=== PATIENT | male | born 1960 | race Caucasian/White ===

== ENCOUNTER 2020-05-24 08:03 | Outpatient (REF) | payer OTHER, SELFPAY ==
--- NOTE | ~2020-05-24 | XR_ITS ---
EXAMINATION: XR LUMBOSACRAL SPINE CLINICAL INFORMATION: Low back pain COMPARISON: None TECHNIQUE: Three views of the lumbosacral spine. FINDINGS: Bone alignment is normal. No fracture or dislocation is seen. Disc spaces are normal. There is lower lumbar spine facet arthritis. The left iliac crest is higher than the right. There may be degenerative changes of the right inferior sacroiliac joint. There is evidence of severe atherosclerotic disease. XR/XR lumbar spine 2-3V IMPRESSION: Lower lumbar spine facet arthritis. The left iliac crest is higher than the right. Severe atherosclerotic disease.
== END 2020-05-24 08:04 | disposition home or self-care (01) ==
LOC: HO.XRAY 08:03
PROVIDERS: PCP Internal Medicine; Visit Provider Physician Assistant
DX: M54.5 Low back pain (principal)
CPT/HCPCS: 72100

== ENCOUNTER → 2020-07-15 09:33 | Outpatient (BNVA) | payer OTHER, SELFPAY | PROVIDERS: Visit Provider Internal Medicine Cardiovascular Disease | DX: I25.10 Atherosclerotic heart disease of native coronary artery without angina pectoris (principal); I10 Essential (primary) hypertension; Z79.899 Other long term (current) drug therapy | CPT/HCPCS: 93005 ==

== ENCOUNTER 2020-08-21 10:26 | Outpatient (REF) | payer MEDICARE, OTHER, SELFPAY ==
[2020-08-21 11:21] LABS: Glucose Urine UA NEG (NEG); Leukocyte Esterase Urine NEG (NEG); Nitrite Urine NEG (NEG); Specific Gravity - Urine 1.015 (1.005-1.025); Urine Blood 1+ (NEG); Urine Ketones NEG (NEG); Urine Protein NEG (NEG-TRACE)
[2020-08-21 11:22] LABS: MANUAL DIFF FLAG NO
[2020-08-21 11:28] LABS: Appearance Urine CLEAR; Color Urine YELLOW
[2020-08-21 11:39] LABS: Basophils Absolute Auto 0.1 X10*3/uL (0.0-0.2); Basophils Percent Auto 1.3 % (0-2); Eosinophils Absolute Auto 0.2 X10*3/uL (0.0-0.4); Hematocrit 40.5 % (42-52); Hemoglobin 14.4 g/dl (14.0-18.0); Imm Gran Abs Auto 0.03 X10*3/uL (0.00-0.03); Imm Gran Pct Auto 0.5 % (0.0-0.4); Lymphocytes Absolute Auto 1.7 X10*3/uL (1.2-4.9); Lymphocytes Percent Auto 30.5 % (20-40); Mean Corpuscular HGB Conc 35.6 g/dl (31.0-36.0); Mean Corpuscular Hemoglobin 32.9 pg (27.0-33.0); Mean Corpuscular Volume 92.5 fL (80-98); Mean Platelet Volume 8.4 fL (9.4-12.4); Monocytes Absolute Auto 0.6 X10*3/uL (0.1-1.2); Monocytes Percent Auto 10.8 % (2-11); Neutrophils Absolute Auto 2.9 X10*3/uL (2.0-8.3); Neutrophils Percent Auto 52.9 % (45-73); Platelet Count 291 X10*3/uL (160-400); Red Blood Count 4.38 X10*6/uL (4.60-5.80); Red Cell Distribution Width 11.5 % (11.0-16.0); White Blood Count 5.6 X10*3/uL (4.8-10.8)
[2020-08-21 11:40] LABS: WBC Urine 0 /HPF (0-4)
[2020-08-21 11:41] LABS: Alanine Aminotransferase 17 U/L (0-40); Albumin Level 4.5 g/dL (3.5-5.0); Alkaline Phosphatase 58 U/L (39-117); Anion Gap 13 (12-20); Aspartate Amino Transferase 24 U/L (5-37); Bilirubin Total 0.6 mg/dL (0.0-1.0); Blood Urea Nitrogen 9 mg/dL (9-16); Calcium 9.6 mg/dL (8.4-10.2); Carbon Dioxide 26 mmol/L (22-29); Chloride 97 mmol/L (96-108); Cholesterol 131 mg/dL; Estimated Glomerular Filt Rate > 60; Glucose Fasting 128 mg/dL (60-99); HDL Cholesterol 71 mg/dL; LDL Cholesterol Calculated 52 mg/dl; Potassium 4.8 mmol/L (3.3-5.1); Sodium 131 mmol/L (135-145); Total Protein 6.9 g/dL (6.5-8.0); Triglycerides 43 mg/dL
[2020-08-21 12:04] LABS: TSH reflex Free T4 0.32 uIU/mL (0.32-4.0)
[2020-08-25 21:46] LABS: Testosterone, Total 780 ng/dL (250-1100)
== END 2020-08-21 10:27 | disposition home or self-care (01) ==
LOC: HO.LAB 10:26
PROVIDERS: PCP Internal Medicine; Visit Provider Internal Medicine
DX: I10 Essential (primary) hypertension (principal); F17.200 Nicotine dependence, unspecified, uncomplicated; I25.10 Atherosclerotic heart disease of native coronary artery without angina pectoris; R53.83 Other fatigue; E78.00 Pure hypercholesterolemia, unspecified
CPT/HCPCS: 36415; 80053; 80061; 81001; 84403; 84443; 85025

== ENCOUNTER → 2021-01-14 09:21 | Outpatient (BNVA) | payer MEDICARE, BC, SELFPAY | PROVIDERS: PCP Internal Medicine; Referring Provider Internal Medicine; Visit Provider Internal Medicine Cardiovascular Disease | DX: I25.10 Atherosclerotic heart disease of native coronary artery without angina pectoris (principal); I10 Essential (primary) hypertension | CPT/HCPCS: 99212 ==

== ENCOUNTER 2021-04-26 11:18 | Outpatient (REF) | payer MEDICARE, SELFPAY ==
[2021-04-26 13:22] LABS: Appearance Urine CLEAR; Color Urine YELLOW; Glucose Urine UA NEG (NEG); Leukocyte Esterase Urine NEG (NEG); Nitrite Urine NEG (NEG); UACC Culture Trigger NO; Urine Blood TRACE (NEG); Urine Ketones NEG (NEG); Urine Protein NEG (NEG-TRACE)
[2021-04-26 13:43] LABS: Estimated Average Glucose 108 mg/dL; Hemoglobin A1c % 5.4 %
[2021-04-26 13:47] LABS: Alanine Aminotransferase 31 U/L (0-40); Albumin Level 4.5 g/dL (3.5-5.0); Alkaline Phosphatase 59 U/L (39-117); Anion Gap 13 (12-20); Aspartate Amino Transferase 30 U/L (5-37); Blood Urea Nitrogen 11 mg/dL (9-16); Calcium 9.6 mg/dL (8.4-10.2); Carbon Dioxide 26 mmol/L (22-29); Chloride 94 mmol/L (96-108); Cholesterol 144 mg/dL; Estimated Glomerular Filt Rate > 60; Glucose Fasting 120 mg/dL (60-99); HDL Cholesterol 78 mg/dL; LDL Cholesterol Calculated 58 mg/dl; Sodium 128 mmol/L (135-145); Total Protein 6.9 g/dL (6.5-8.0); Triglycerides 44 mg/dL
[2021-04-26 13:58] LABS: RBC Urine 0-2 /HPF (0); WBC Urine 0 /HPF (0-4)
[2021-04-26 14:11] LABS: TSH reflex Free T4 0.52 uIU/mL (0.32-4.0); Vitamin D 25-OH Total 29.7 ng/mL (>30)
[2021-04-26 14:27] LABS: Prostate Specific Antigen 0.36 ng/mL (<0.05-4.0)
[2021-04-28 08:45] LABS: Folate 15.2 ng/mL (> or = 4.0); Vitamin B12 267 pg/mL (200-900)
== END 2021-04-26 11:19 | disposition home or self-care (01) ==
LOC: HO.HMGCLDS 11:18
PROVIDERS: PCP Internal Medicine; Visit Provider Internal Medicine
DX: E55.9 Vitamin D deficiency, unspecified (principal); N40.0 Benign prostatic hyperplasia without lower urinary tract symptoms; E78.00 Pure hypercholesterolemia, unspecified; E53.8 Deficiency of other specified B group vitamins; R73.01 Impaired fasting glucose; I10 Essential (primary) hypertension; R53.83 Other fatigue
CPT/HCPCS: 36415; 80053; 80061; 81001; 82306; 82607; 82746; 83036; 84153; 84443

== ENCOUNTER 2021-06-12 08:39 | Outpatient (REF) | payer MEDICARE, SELFPAY ==
--- NOTE | ~2021-06-12 | CT_ITS ---
EXAMINATION: CT CHEST SCREENING CLINICAL INFORMATION: Current smoker. 45 pack year history. COMPARISON: Previous chest CT most recent December 2019 TECHNIQUE: Multidetector volumetric CT imaging of the chest is performed without contrast using low dose technique. Additional 2D coronal and sagittal reformatted images and axial 3D maximum intensity projection (MIP) images are generated on the CT workstation. This CT examination was performed using dose optimization techniques as appropriate, variously including the following: *Automated exposure control *Adjustment of mA and/or kV according to patient size (this includes techniques or standardized protocols for targeted exams where dose is matched to indication/reason for exam; i.e. extremities or head) *Use of iterative reconstruction technique DLP: 49 mGy-cm FINDINGS: LUNGS: There is evidence of mild emphysema. The lungs are clear with no evidence of inflammation or nodules. No endobronchial or endotracheal lesion is seen. MEDIASTINUM: There is severe coronary artery calcification. The mediastinum is otherwise normal. PLEURA: There is no pleural effusion. No pleural mass or thickening. AXILLA: No lymphadenopathy. UPPER ABDOMEN: Unremarkable OSSEOUS STRUCTURES: Unremarkable. CT/CT lung screening IMPRESSION: Mild emphysema. No pulmonary nodules. Atherosclerotic disease and severe coronary artery calcification. ASSESSMENT: Lung-RADS category 1S S for severe coronary artery calcification. RECOMMENDATION: Annual low-dose chest CT follow-up recommended.
== END 2021-06-12 08:40 | disposition home or self-care (01) ==
LOC: HO.CT 08:39
PROVIDERS: Visit Provider Physician Assistant Medical
DX: Z12.2 Encounter for screening for malignant neoplasm of respiratory organs (principal); F17.210 Nicotine dependence, cigarettes, uncomplicated
CPT/HCPCS: 71271

== ENCOUNTER → 2021-07-31 14:50 | Outpatient (BNVA) | payer MEDICARE, SELFPAY | PROVIDERS: PCP Internal Medicine; Referring Provider Internal Medicine; Visit Provider Nurse Practitioner Family | DX: I25.10 Atherosclerotic heart disease of native coronary artery without angina pectoris (principal); I10 Essential (primary) hypertension; E78.00 Pure hypercholesterolemia, unspecified; F17.210 Nicotine dependence, cigarettes, uncomplicated; I25.2 Old myocardial infarction; Z86.74 Personal history of sudden cardiac arrest; Z95.5 Presence of coronary angioplasty implant and graft | CPT/HCPCS: 93005; 99212 ==

== ENCOUNTER → 2021-09-19 09:40 | Outpatient (BNVA) | payer MEDICARE, SELFPAY | PROVIDERS: PCP Internal Medicine; Visit Provider Physician Assistant | DX: M77.12 Lateral epicondylitis, left elbow (principal) | CPT/HCPCS: 20551; 99202; J1020 ==

== ENCOUNTER → 2022-01-13 09:22 | Outpatient (BNVA) | payer MEDICARE, SELFPAY | PROVIDERS: PCP Internal Medicine; Referring Provider Internal Medicine; Visit Provider Internal Medicine Cardiovascular Disease | DX: R07.9 Chest pain, unspecified (principal); I25.10 Atherosclerotic heart disease of native coronary artery without angina pectoris; I10 Essential (primary) hypertension; F17.210 Nicotine dependence, cigarettes, uncomplicated; Z79.899 Other long term (current) drug therapy | CPT/HCPCS: 93005; 99212 ==

== ENCOUNTER → 2022-02-06 13:57 | Outpatient (REF) | payer MEDICARE, SELFPAY ==
--- NOTE | 2022-02-06 14:00 | CA_ITS ---
Transthoracic Echocardiogram Patient (Last, First, Middle): Lc Payan R Gender: Male Date of : 1960 Age: 61 Procedure Date: 02/06/2022 Procedure Type: Transthoracic Echocardiogram Location: OP Height: 165.1 cm Weight: 68.04 kg BSA: 1.75 m2 Heart Rate: 69 bpm BP: 122 / 80 mmHg Profile Shaper Operator: TO Referring MD: Todd Negro MD Symptoms: R07.9 - Chest pain, unspecified Study Quality: Adequate ECG Rhythm: Sinus Conclusions: - Normal left ventricular size, thickness, and systolic function. The visually estimated ejection fraction is between 55-60%. - The apex, apical septum, and mid anteroseptal segments are akinetic. - Mildly increased right ventricular cavity size. There is normal right ventricular systolic function. Findings Left Ventricle Normal left ventricular size, thickness, and systolic function. The visually estimated ejection fraction is between 55-60%. There is evidence of regional wall motion abnormalities. Abnormal diastolic function is noted. Spectral Doppler is indicative of a pseudonormal filling pattern. E/E prime ratio is between 8 and 15 consistent with indeterminate filling pressures. Wall Motion Rest Echo Findings The apex, apical septum, and mid anteroseptal segments are akinetic. Right Ventricle Mildly increased right ventricular cavity size. There is normal right ventricular systolic function. Atria Both atria are normal in size. There is no evidence of interatrial shunt by color Doppler. Aortic Valve Normal aortic valve structure and function. There is no aortic valve stenosis. There is no aortic valve regurgitation. Mitral Valve The mitral valve appears normal. There is no mitral valve regurgitation. There is no mitral valve stenosis. Pulmonic Valve The pulmonic valve is likely normal. Tricuspid Valve Normal tricuspid valve structure. There is trace tricuspid valve regurgitation. Normal right atrial pressure. There is no evidence of pulmonary hypertension. Great Vessels The visualized portions of the pulmonary artery and branches are normal. Venous The inferior vena cava is normal in size and collapses greater than 50% with inspiration. Pericardium/Pleural There is no evidence of pericardial effusion. Prior Study Comparison No significant change compared to prior study dated: 11/21/2019. Measurements 2D Linear Measurements IVSd: 0.83 0.6-0.9/0.6-1.0 cm LVIDd: 5.22 3.9-5.3/4.2-5.9 cm LVIDd Index: 2.98 2.4-3.2/2.2-3.1 cm/m2 LVIDs: 3.19 2.0-3.6 cm LVPWd: 0.86 0.7-1.1 cm LA Diam: 2.70 2.7-3.8/3.0-4.0 cm LAIDs Index: 1.54 1.5-2.3 cm/m2 LV Mass: 194.62 67-162/88-224 g LV Mass Index: 111.21 43-95/49-115 g/m2 LVOT Diam: 2.10 3.0+(-)1.3 cm 2D Systolic Function EF 4C: 56.60 >55% EF 2C: 61.70 >55% EF BiP: 59.00 >55% Mitral Valve MV Pk E: 0.66 MV PK A: 0.68 MV Decel Time: 248.00 E/A: 1.00 E'Lateral: 6.42 E'Medial: 6.64 E/E' Med: 9.90 E/E' Lat: 10.30 PHT: 73.00 MVA PHT: 3.01 Decel Phillips: 2.66 Aortic Valve AoV Pk Singh: 1.52 AoV Mn Singh: 1.09 AoV VTI: 0.35 AoV Pk Grad: 9.00 Aov Mn Grad: 5.00 LUCERO Cont.VTI: 2.70 LVOT LVOT Pk Singh: 1.26 LVOT Mn Singh: 0.73 LVOT VTI: 0.27 LVOT Pk Grad: 6.00 LVOT Mn Grad: 3.00 LVOT Diam: 2.10 LVOT Area: 3.46 Diastolic Function MV Pk E: 0.66 MV Pk A: 0.68 E/A: 1.00 E'Medial: 6.64 E/E' Med: 9.90 E' Laterial: 6.42 E/E' Lat: 10.30 Right Ventricle TAPSE (mm): 28.10 TVS' Singh: 11.70 Tricuspid Valve TR Pk Singh: 2.00 TR Pk Grad: 16.00 RA Press: 3.00 RVSP: 19.00 Great Vessels Aorta Ao Asc: 3.20 2.1-3.4 cm Updated in Other Vendor System with Status of Final Caden Ramirez MD electronically signed on 02/08/2022 3:06:05 PM with status of Final
== END ==
LOC: HO.CARD 13:57
PROVIDERS: Visit Provider Internal Medicine Cardiovascular Disease
DX: R07.9 Chest pain, unspecified (principal); I10 Essential (primary) hypertension
CPT/HCPCS: 93306

== ENCOUNTER → 2022-02-12 07:58 | Outpatient (REF) | payer MEDICARE, SELFPAY ==
--- NOTE | ~2022-02-12 | NM_ITS ---
Exercise Myocardial perfusion study Indication: Chest pain with prior coronary artery disease to evaluate for myocardial ischemia Technique: The patient was brought in for an exercise perfusion study on 02/12/2022. Patient performed exercise as per Willard protocol and was injected 25 mCi of sestamibi was given intravenously one target HR was achieved. Images were obtained using the SPECT gamma camera interlaced with the gating device. Images were obtained in supine position. Resting perfusion study was performed on 02/13/2022. Patient was administered 25 mCi of sestamibi intravenously at rest. Images were then obtained in supine position. Images obtained with and without CT attenuation. Total DLP 74 mGy-cm. Images were processed with the software and compared side to side in short axis, horizontal long axis and vertical long axis views. Findings: The stress perfusion study showed non attenuated images show absent uptake in the apex of the LV myocardium along with mildly to moderately uptake in the septum of the LV myocardium. Remainder of the LV myocardium is normally perfused. Attenuation corrected images show no significant changes.. The gated study shows normal LV systolic function with calculated LVEF of 59%. LV cavity is mildly dilated in size. The gated study shows absent wall thickening and contraction of apical segments. There is no transient ischemic dilation. Resting study shows no change in perfusion pattern compared to stress perfusion study. Gating at rest reveals apical wall motion abnormality with ejection fraction at 55%. 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 NM/NM sonia perf SPECT rest & str Impression: 1. 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 Gated LVEF is 59% 3. Transient ischemic dilatation not present Stress EKG is negative for ischemia
--- NOTE | 2022-02-12 08:00 | CA_ITS ---
Acquisition Time: 2022-02-12 08:12:18 Total Exercise Time: 00:08:45 Test Indications: Fatigue Medications: AMLODIPINE ASA ATORVASTATIN HCTZ LISINOPRIL TRAZADONE RANOLAZINE Protocol: DOMINICK Max HR: 137 BPM 86% of Pred: 159 BPM Max BP: 164/070 mmHG Max Work Load: 10.1 METS Exercise stress test with exercise 8 min 45 sec of Dominick protocol, achieving 86% MPHR 10.1 METs, with 6/10 anterior chest burning, mild sob and leg fatigue with need to stop, with isolated PAC, with normotensive response to exercise, without EKG changes meeting criteria for ischemia.with ST/ T wave abnormality V1-V3 throughtout test, consistent with RBBB. In recovery his chest burning quickly resolved. Nuclear images pending. Test reviewed with Dr Negro Referred By: oTdd Negro Overread By: FERNANDO ROMEO
== END ==
LOC: HO.CARD 07:58
PROVIDERS: Visit Provider Internal Medicine Cardiovascular Disease
DX: R07.9 Chest pain, unspecified (principal); I25.10 Atherosclerotic heart disease of native coronary artery without angina pectoris
CPT/HCPCS: 78452; 93017; A9500

== ENCOUNTER → 2022-05-27 13:32 | Outpatient (BNVA) | payer MEDICARE, SELFPAY | PROVIDERS: PCP Internal Medicine; Referring Provider Internal Medicine; Visit Provider Nurse Practitioner Family | DX: I25.10 Atherosclerotic heart disease of native coronary artery without angina pectoris (principal); I10 Essential (primary) hypertension; E78.00 Pure hypercholesterolemia, unspecified; F17.210 Nicotine dependence, cigarettes, uncomplicated; Z95.5 Presence of coronary angioplasty implant and graft | CPT/HCPCS: 99212 ==

== ENCOUNTER 2022-07-08 09:33 | Outpatient (REF) | payer MEDICARE, SELFPAY ==
--- NOTE | ~2022-07-08 | CT_ITS ---
EXAMINATION: LUNG CANCER SCREENING CT CHEST WITHOUT CONTRAST CLINICAL INFORMATION: Current smoker with 45 pack year history COMPARISON: 06/12/2021 TECHNIQUE: Multidetector volumetric CT imaging of the chest was obtained noncontrast using low dose screening CT technique. Axial thin section 0.625 mm reformations in soft tissue and lung windows were obtained. Sagittal and coronal reformations were obtained. Axial MIP images were also created and reviewed. This CT examination was performed using dose optimization techniques as appropriate, variously including the following: *Automated exposure control *Adjustment of mA and/or kV according to patient size (this includes techniques or standardized protocols for targeted exams where dose is matched to indication/reason for exam; i.e. extremities or head) *Use of iterative reconstruction technique TOTAL EXAM DLP: 54 mGy-cm. FINDINGS: PULMONARY NODULES: No suspicious pulmonary nodules. LUNGS / PLEURA: Mild emphysema. Diffuse mild bronchial wall thickening without bronchiectasis. No pleural effusion or pneumothorax. MEDIASTINUM / SHY: Heart normal in size without pericardial effusion. Great vessels normal caliber. No lymphadenopathy. Coronary calcifications present. Imaged thyroid gland unremarkable. CHEST WALL / AXILLA: Unremarkable. UPPER ABDOMEN: Included portions grossly unremarkable allowing for limitations in technique. OSSEOUS STRUCTURES: No acute or suspicious osseous abnormalities. CT/CT lung screening IMPRESSION: * No evidence of pulmonary malignancy. * Mild emphysema and chronic airways disease. ASSESSMENT: Lung RADS category: 1. Negative. No nodules or definitely benign nodules. Continue annual screening with low-dose CT in 12 months. Probability of malignancy less than 1%. INCIDENTAL FINDINGS (S CATEGORY): None. RECOMMENDATION: Follow up low dose CT chest in 1 year.
== END 2022-07-08 09:34 | disposition home or self-care (01) ==
LOC: HO.CT 09:33
PROVIDERS: Visit Provider Physician Assistant Medical
DX: Z12.2 Encounter for screening for malignant neoplasm of respiratory organs (principal); F17.210 Nicotine dependence, cigarettes, uncomplicated
CPT/HCPCS: 71271

== ENCOUNTER 2022-10-09 08:27 | Outpatient (REF) | payer MEDICARE, SELFPAY ==
[2022-10-09 11:20] LABS: MANUAL DIFF FLAG NO
[2022-10-09 11:35] LABS: Basophils Absolute Auto 0.1 X10*3/uL (0.0-0.2); Basophils Percent Auto 0.7 % (0-2); Eosinophils Absolute Auto 0.1 X10*3/uL (0.0-0.4); Eosinophils Percent Auto 0.7 % (0-4); Hematocrit 39.8 % (42.0-52.0); Hemoglobin 14.6 g/dl (14.0-18.0); Imm Gran Abs Auto 0.03 X10*3/uL (0.00-0.03); Imm Gran Pct Auto 0.4 % (0.0-0.4); Lymphocytes Absolute Auto 1.3 X10*3/uL (1.2-4.9); Lymphocytes Percent Auto 18.3 % (20-40); Mean Corpuscular HGB Conc 36.7 g/dl (31.0-36.0); Mean Corpuscular Hemoglobin 33.9 pg (27.0-33.0); Mean Corpuscular Volume 92.3 fL (80.0-98.0); Mean Platelet Volume 8.7 fL (9.4-12.4); Monocytes Absolute Auto 0.6 X10*3/uL (0.1-1.2); Monocytes Percent Auto 9.2 % (2-11); Neutrophils Absolute Auto 4.8 x10*3/uL (2.0-8.3); Neutrophils Percent Auto 70.7 % (45-73); Platelet Count 254 X10*3/uL (160-400); Red Blood Count 4.31 X10*6/uL (4.60-5.80); Red Cell Distribution Width 11.9 % (11.0-16.0); White Blood Count 6.8 X10*3/uL (4.8-10.8)
[2022-10-09 11:47] LABS: Appearance Urine Clear; Color Urine Yellow; Glucose Urine UA Negative (Negative); Leukocyte Esterase Urine Negative (Negative); Nitrite Urine Negative (Negative); Specific Gravity - Urine 1.015 (1.005-1.025); Urine Blood Negative (Negative); Urine Ketones Trace mg/dL (Negative); Urine Protein Negative (Neg-Trace)
[2022-10-09 12:43] LABS: Alanine Aminotransferase 38 U/L (0-40); Albumin Level 4.3 g/dL (3.5-5.0); Alkaline Phosphatase 64 U/L (39-117); Anion Gap 12 (12-20); Aspartate Amino Transferase 40 U/L (5-37); Blood Urea Nitrogen 8 mg/dL (9-16); Calcium 9.3 mg/dL (8.4-10.2); Carbon Dioxide 23 mmol/L (22-29); Chloride 95 mmol/L (96-108); Cholesterol 149 mg/dL; Estimated Glomerular Filt Rate > 60; Glucose Fasting 108 mg/dL (60-99); HDL Cholesterol 79 mg/dL; LDL Cholesterol Calculated 58 mg/dl; Potassium 3.9 mmol/L (3.3-5.1); Sodium 126 mmol/L (135-145); Total Protein 6.8 g/dL (6.5-8.0); Triglycerides 60 mg/dL
[2022-10-09 12:57] LABS: Prostate Specific Antigen Scr 0.66 ng/mL (<0.05-4.0)
[2022-10-09 13:03] LABS: TSH reflex Free T4 0.54 uIU/mL (0.32-4.0)
[2022-10-15 21:23] LABS: Testosterone, Free 58.3 pg/mL (35.0-155.0); Testosterone, Total 857 ng/dL (250-1100)
== END 2022-10-09 08:28 | disposition home or self-care (01) ==
LOC: HO.HMGCLDS 08:27
PROVIDERS: PCP Nurse Practitioner Family; Visit Provider Nurse Practitioner Family
DX: E78.5 Hyperlipidemia, unspecified (principal); I10 Essential (primary) hypertension; R68.82 Decreased libido; Z12.5 Encounter for screening for malignant neoplasm of prostate
CPT/HCPCS: 36415; 80053; 80061; 81003; 84153; 84402; 84403; 84443; 85025

== ENCOUNTER 2022-11-25 08:52 | Outpatient (AMB) | payer MEDICARE, SELFPAY ==
[2022-11-25 09:08] VITALS: BP 116/78; PULSE 65; BMI 24.8
--- NOTE | 2022-11-25 09:08 | A.OFFVIS_ITS ---
Intake Vital Signs 11/25/22 09:08 Height 5 ft 5 in Weight 149 lb BMI 24.8 BP 116/78 Blood Pressure Location Lt brachial Position Sitting Pulse 65 Intake Visit Reasons: 6 mth f/up Intake Note: 6 month follow-up with ekg c/o fatigue Mammal Keeper Required: No Allergies carvedilol Adverse Reaction (Severe, Verified 09/23/22 14:43) Unknown Medication List - Last Reconciled 11/25/22 by Todd Negro MD amlodipine 10 mg PO DAILY 90 days aspirin 81 mg PO DAILY atorvastatin 80 mg PO DAILY 90 days ezetimibe 10 mg PO DAILY hydrochlorothiazide 12.5 mg PO QAM 90 days lisinopril 20 mg PO DAILY 90 days ranolazine ER 500 mg PO BID 90 days sildenafil 50 mg PO DAILY PRN trazodone 100 mg (2 x 50 mg) PO BEDTIME 90 days HPI HPI Comments History of Present Illness Details Lc comes for follow-up. He has no cardiac symptoms at this time. Denies any exertional chest burning or chest discomfort. Unfortunately continues to smoke 2 packs a day. Also uses alcohol on a daily basis but thinks that this is not a problem. Denies any heart failure symptoms. Takes all his medications regularly. Most recent LDL was well optimized. PFSH Medical History Anxiety CAD (coronary artery disease) Depression Fatigue HTN (hypertension) Hyperlipidemia Impaired fasting glucose Insomnia Normal colonoscopy (~08/29/12) Smoker Surgical History Brain aneurysm History of arthroscopy of left knee History of cardiac catheterization History of surgery History of vasectomy Stented coronary artery Family History Father Diverticulitis Acute CVA (cerebrovascular accident) Mother Breast cancer CVD (cardiovascular disease) Stroke Maternal Aunt Graves disease Brother Diverticulitis Heart attack Sister Melanoma Son No problems noted. 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 Cognitive needs: No Hearing needs: Yes Vision needs: Yes Review of Systems Const Denies chills, Denies fatigue, Denies fever(s), Denies frequent falls, Denies weakness, Denies weight gain and Denies weight loss ENT Denies dizziness Card Denies chest pain, Denies leg edema, Denies lightheadedness, Denies palpitations, Denies dyspnea, Denies dyspnea on exertion, Denies orthopnea and Denies other (loss of consciousness) Resp Denies cough, Denies dyspnea and Denies dyspnea on exertion GI Denies hematochezia and Denies change in stool character Musc Denies abnormal gait, Denies muscle weakness, Denies numbness, Denies radiating pain into limb and Denies tingling Neuro Denies abnormal gait, Denies dizziness, Denies frequent falls, Denies numbness, Denies tingling and Denies weakness Endo Denies fatigue and Denies palpitations Physical Exam Vital Signs: Last Vital Signs Pulse 65 11/25/22 09:08 BP 116/78 11/25/22 09:08 BMI result Body Mass Index 24.8 Const General: cooperative, comfortable and no acute distress Orientation/consciousness: patient oriented x3 Neck Neck: Yes normal visual inspection and Yes no JVD Resp Effort & Inspection: normal respiratory effort Auscultation: clear to auscultation bilaterally, no crackles, no rales, no rhonchi and wheezes scattered wheezes Cardio Jugular venous distension: no JVD Rate: regular rate Rhythm: regular rhythm Heart sounds: S1 normal heart sound present, S2 normal heart sound present, no gallops, no murmurs and no rubs Neuro General: patient oriented x3 Extrem General: Yes normal to inspection Psych Appearance: grossly normal Mental Status: mental status grossly normal Speech and movement: Normal speech and movement present Office Procedures EKG Details: EKG shows normal sinus rhythm with right bundle-branch block with inferior and septal Q-waves most likely suggestive of apical infarct. [id number], Complete Assessment & Plan Assessment & Plan (1) CAD (coronary artery disease): Code(s): I25.10 - Atherosclerotic heart disease of [place] coronary artery without angina pectoris Qualifiers: Coronary Disease-Associated Artery/Lesion type: [place] artery [place] vs. transplanted heart: [place] heart Associated angina: without angina Qualified Code(s): I25.10 - Atherosclerotic heart disease of [place] coronary artery without angina pectoris Plan: CAD with multi vessel PCI to LAD and RCA. He has no current symptoms of angina. Last myocardial perfusion imaging about a year ago was suggestive of transfemoral infarct of the apex. Continue current medical therapy. Complete smoking cessation was advised. We discussed various strategies. Continue low- dose aspirin therapy for life. His LDL is well optimized on dual therapy with atorvastatin ezetimibe. Continue target goal LDL less than 70 mg/dL. Continue aggressive blood pressure control, see below. Currently on dual antianginal therapy with ranolazine and amlodipine. Could not tolerate metoprolol in the past due to bradycardia and fatigue. Encouraged to continue to participate in physical activity as tolerated. (2) HTN (hypertension): Code(s): I10 - Essential (primary) hypertension Qualifiers: Hypertension type: essential hypertension Qualified Code(s): I10 - Essential (primary) hypertension Plan: Hypertension which is currently well optimized advised to monitor blood pressure at home maintain a log. Goal blood pressure less than 130/84. He is developing some mild edema with amlodipine therapy especially in the long weather. No specific therapy recommended for the same. Advised low-salt diet. Advised stress mitigation strategies. Will follow up in the clinic in 1 year's time, sooner p.r.n.. Thank you for allowing me to partake in his care Coding Level of Care Code Est Pt Level 4 (93688) Diagnoses CAD (coronary artery disease) I25.10 Coronary Disease-Associated Artery/Lesion type: [place] artery [place] vs. transplanted heart: [place] heart Associated angina: without angina HTN (hypertension) I10 Hypertension type: essential hypertension CPT Codes EKG - CPT: 49200-[id number], Complete ([id number])
== END 2022-11-25 09:45 | disposition home or self-care (01) ==
PROVIDERS: PCP Nurse Practitioner Family; Referring Provider Nurse Practitioner Family; Visit Provider Internal Medicine Cardiovascular Disease
DX: I25.10 Atherosclerotic heart disease of native coronary artery without angina pectoris (principal); I10 Essential (primary) hypertension
CPT/HCPCS: 93010; 99214

== ENCOUNTER → 2022-11-25 08:52 | Outpatient (BNVA) | payer MEDICARE, SELFPAY | PROVIDERS: PCP Nurse Practitioner Family; Referring Provider Nurse Practitioner Family; Visit Provider Internal Medicine Cardiovascular Disease | DX: I25.10 Atherosclerotic heart disease of native coronary artery without angina pectoris (principal); I10 Essential (primary) hypertension | CPT/HCPCS: 93005; 99212 ==

== ENCOUNTER → 2022-12-07 07:35 | Outpatient (BNVA) | payer MEDICARE, SELFPAY | PROVIDERS: PCP Nurse Practitioner Family; Visit Provider Physician Assistant ==

== ENCOUNTER 2022-12-16 04:13 | Emergency (ER) | payer MEDICARE, SELFPAY ==
[2022-12-16 04:44] VITALS: BP 150/83; PULSE 96; RESP 17; TEMP 36.9; O2SAT 98
[2022-12-16 04:57] VITALS: BMI 23.1
[2022-12-16 05:29] LABS: IDNOW Serial# 08D9AD1C; Strep A Nucleic Acid Negative (Negative)
[2022-12-16 05:31] LABS: IDNOW Serial# BCCEAD1C
[2022-12-16 05:32] LABS: COVID-19 Test Negative (Negative)
--- NOTE | 2022-12-16 05:47 | ED.GENADULT ---
HPI - General Adult General Chief complaint: General Medical Stated complaint: Sore Throat Time Seen by Provider: 12/16/22 05:43 Source: patient Mode of arrival: ambulatory Limitations: no limitations History of Present Illness HPI narrative: Patient comes to the emergency room complaining of difficulty and pain swallowing. Patient states it has been 3 weeks at least. Patient denies any fever chills, no recent URI symptoms Related Data Home Medications Medication Instructions Recorded Confirmed aspirin 81 mg tablet,delayed 81 mg PO DAILY 05/23/20 11/25/22 release Previous Rx's Medication Instructions Recorded amlodipine 10 mg tablet 10 mg PO DAILY 90 days #90 tabs 12/31/21 atorvastatin 80 mg tablet 80 mg PO DAILY 90 days #90 tabs 12/31/21 ezetimibe 10 mg tablet 10 mg PO DAILY #90 tabs 12/31/21 hydrochlorothiazide 12.5 mg capsule 12.5 mg PO QAM 90 days #90 caps 12/31/21 lisinopril 20 mg tablet 20 mg PO DAILY 90 days #90 tabs 12/31/21 ranolazine 500 mg tablet,extended 500 mg PO BID 90 days #180 tabs 12/31/21 release,12 hr sildenafil 50 mg tablet 50 mg PO DAILY PRN sexual activity 03/23/22 #20 tabs trazodone 50 mg tablet 100 mg PO BEDTIME 90 days #180 tabs 07/30/22 bisacodyl 5 mg tablet,delayed 20 mg PO ONCE colonoscopy prep 1 12/07/22 release (Dulcolax (bisacodyl)) day #4 tabs polyethylene glycol 3350 17 238 g PO ONCE laxative effect 1 12/07/22 gram/dose oral powder (Miralax) day #238 grams omeprazole 20 mg capsule,delayed 20 mg PO DAILY #30 caps 12/16/22 release Allergies Allergy/AdvReac Type Severity Reaction Status Date / Time carvedilol AdvReac Severe Unknown Verified 12/07/22 07:46 Review of Systems Review of Systems: Constitutional : No Weight loss, No Fever, No Chills, No Night Sweats, No Fatigue, No Malaise ENT/Mouth : No Hearing loss, No Ear Pain, No Nasal Congestion, No Sinus Pain, No Hoarseness, complaining of sore throat, No Rhinorrhea, No Swallowing Difficulty Eyes: No Eye Pain, No Swelling, No Redness, No Foreign Body, No Discharge, No Vision Changes Cardiovascular : No Chest Pain, No SOB, No Dyspnea on Exertion, No Orthopnea, No Edema, No Palpitations Respiratory : No Cough, No Sputum, No Wheezing, No Smoke Exposure, No Dyspnea Gastrointestinal : No Nausea, No Vomiting, No Diarrhea, No Constipation, No abdominal Pain, No Hematochezia, No Melena Genitourinary : no irregular bleeding, No Dysuria, No Urinary Frequency, No Hematuria, No Urinary Incontinence, No Urgency, No Flank Pain, No Urinary Flow Changes, No Hesitancy Musculoskeletal : No joint pain, No Myalgias, No Joint Swelling Skin : No Skin Lesions, No rash Neuro : No Weakness, No Numbness, No Paresthesias, No Loss of Consciousness, No Dizziness, No Headache Psych : No Anxiety/Panic, No Depression, No SI/HI/AH/VH, No Social Issues, Heme/Lymph: No Bruising, No Bleeding,No Lymphadenopathy Endocrine : No Polyuria, No Polydipsia, No Temperature Intolerance [facility] Past Medical History Medical History Anxiety CAD (coronary artery disease) Depression Fatigue HTN (hypertension) Hyperlipidemia Impaired fasting glucose Insomnia Normal colonoscopy (~08/29/12) Smoker Surgical History Brain aneurysm History of arthroscopy of left knee History of cardiac catheterization History of surgery History of vasectomy Stented coronary artery Family History Family History Father Diverticulitis Acute CVA (cerebrovascular accident) Mother Breast cancer CVD (cardiovascular disease) Stroke Maternal Aunt Graves disease Brother Diverticulitis Heart attack Sister Melanoma Son No problems noted. 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 Oriented X3. No acute distress. Eyes: Pupils equal, round and reactive to light. ENT: Pharynx normal. No erythema no exudates, no abscesses Neck: Normal inspection. Neck supple. No lymph nodes noted. No crepitus CVS: Normal heart rate and rhythm. Pulses normal. Normal S1 and S2 Respiratory: No respiratory distress. Breath sounds normal. No Wheezing. No rales Abdomen: Soft and nontender. No rigidity. No distention. Skin: Skin warm and dry. Normal skin color. Normal skin turgor. Extremities: No lower extremity edema. No Lacerations. No Rash Neuro: Oriented X 3. No motor deficit. No sensory deficit. Moving all extremities. No slurred speech. CN 2 through 12 grossly intact Psych: calm, cooperative, normal affect Medical Decision Making Medical Decision Making MDM Narrative: -my interpretation of labs, negative for COVID and strep -I discussed the labs with the patient. Is possible that patient may have GERD or esophageal stricture, patient will follow-up with his primary care physician and Gastroenterology Differential Diagnosis Differential Diagnoses: The differential diagnosis associated with the presentation includes (Strep pharyngitis, COVID, viral pharyngitis, GERD, esophageal stricture) Lab Data Labs: Lab Results 12/16/22 12/16/22 Range/Units 05:11 05:11 COVID-19 (JEFFRY) Negative (Negative) COVID-19 Clin Com See Note S. pyogenes GrpA WILLIAN Negative (Negative) Discharge Plan Discharge Clinical Impression: Chronic sore throat Patient Disposition: Home, Self-Care Instructions: Esophagitis (ED) Additional Instructions: Please follow-up with your primary care physician tomorrow. If you have any worsening or new symptoms, please return to the emergency room or call 911 Prescriptions: New omeprazole 20 mg capsule,delayed release(DR/EC) 20 mg PO DAILY Qty: 30 0RF No Action amlodipine 10 mg tablet 10 mg PO DAILY 90 Days Qty: 90 3RF atorvastatin 80 mg tablet 80 mg PO DAILY 90 Days Qty: 90 3RF ezetimibe 10 mg tablet 10 mg PO DAILY Qty: 90 3RF hydrochlorothiazide 12.5 mg capsule 12.5 mg PO QAM 90 Days Qty: 90 3RF lisinopril 20 mg tablet 20 mg PO DAILY 90 Days Qty: 90 3RF ranolazine 500 mg tablet extended release 12 hr 500 mg PO BID 90 Days Qty: 180 3RF sildenafil 50 mg tablet 50 mg PO DAILY PRN (Reason: sexual activity) Qty: 20 0RF trazodone 50 mg tablet 100 mg PO BEDTIME 90 Days Qty: 180 1RF aspirin 81 mg tablet,delayed release (DR/EC) 81 mg PO DAILY bisacodyl [Dulcolax (bisacodyl)] 5 mg tablet,delayed release (DR/EC) 20 mg PO ONCE 1 Days Qty: 4 0RF Rx Instructions: Take 4 tablets by mouth at 12:00pm the day before your procedure. polyethylene glycol 3350 [Miralax] 17 gram/dose powder 238 g PO ONCE 1 Days Qty: 238 0RF Rx Instructions: Take as directed by mouth the day before your procedure.
== END 2022-12-16 06:09 | disposition home or self-care (01) ==
PROVIDERS: Emergency Provider Emergency Medicine; PCP Nurse Practitioner Family
DX: J31.2 Chronic pharyngitis (principal); Z20.822 Contact with and (suspected) exposure to COVID-19; I10 Essential (primary) hypertension; E78.5 Hyperlipidemia, unspecified; F17.210 Nicotine dependence, cigarettes, uncomplicated
CPT/HCPCS: 87635; 87651; 99283; 99284

== ENCOUNTER 2022-12-23 16:34 | Outpatient (REF) | payer MEDICARE, SELFPAY ==
[2022-12-23 18:46] LABS: Alanine Aminotransferase 32 U/L (0-40); Albumin Level 4.5 g/dL (3.5-5.0); Alkaline Phosphatase 68 U/L (39-117); Anion Gap 13 (12-20); Aspartate Amino Transferase 27 U/L (5-37); Bilirubin Total 0.4 mg/dL (0.0-1.0); Blood Urea Nitrogen 13 mg/dL (9-16); Calcium 9.7 mg/dL (8.4-10.2); Carbon Dioxide 25 mmol/L (22-29); Chloride 98 mmol/L (96-108); Estimated Glomerular Filt Rate > 60; Glucose Random 100 mg/dL (60-115); Potassium 4.3 mmol/L (3.3-5.1); Sodium 132 mmol/L (135-145); Total Protein 6.9 g/dL (6.5-8.0)
== END 2022-12-23 16:35 | disposition home or self-care (01) ==
LOC: HO.LAB 16:34
PROVIDERS: PCP Nurse Practitioner Family; Visit Provider Internal Medicine
DX: E87.1 Hypo-osmolality and hyponatremia (principal)
CPT/HCPCS: 36415; 80053

== ENCOUNTER 2022-12-28 12:57 | Day surgery (SDC) | payer MEDICARE, SELFPAY ==
--- NOTE | 2022-12-25 11:53 | HO.ANESPROP2 ---
Documented by User: Marcie Keys NP 12/25/22 11:59 HPI - Anesthesia Eval Consult details Narrative: 62yo M for Upper Endoscopy with Balloon Dilitation Smoker Daily ETOH Cardiac office eval 11/2022, stable without symptoms PMFSH Active Problems Active Problems: All Active Problems (Updated 12/17/22 @ 00:01 by Background Daemon) Dysphagia (Acute) EtOH dependence (Acute) Screening for colon cancer (Acute) Low libido (Acute) Screening for prostate cancer (Acute) Lateral epicondylitis of left elbow (Acute) Pain in left elbow (Acute) Stented coronary artery (Acute) Withdrawal symptoms, drug or narcotic (Acute) Anxiety (Acute) Counseling on substance use and abuse (Acute) Impaired fasting glucose (Acute) Depression (Acute) Smoker (Acute) Fatigue (Acute) Hyperlipidemia (Acute) HTN (hypertension) (Acute) CAD (coronary artery disease) (Acute) Insomnia (Acute) Lumbar spine pain (Acute) Sinus infection (Acute) Past Medical History Medical History Anxiety Normal colonoscopy (~08/29/12) Impaired fasting glucose Depression Smoker Fatigue Hyperlipidemia HTN (hypertension) CAD (coronary artery disease) Insomnia Family History Family History Father Diverticulitis Acute CVA (cerebrovascular accident) Mother Breast cancer CVD (cardiovascular disease) Stroke Maternal Aunt Graves disease Brother Diverticulitis Heart attack Sister Melanoma Son No problems noted. Surgical History Surgical History Stented coronary artery History of surgery Brain aneurysm History of vasectomy History of cardiac catheterization History of arthroscopy of left knee Social History Social History Housing: House Are you a primary career center director to a significant other at home: No Do you presently have visiting nurse or other home services: No Alcohol intake: current Alcohol intake frequency: 3 or more drinks per day Alcohol type: beer Patient Tobacco Use Status: Current everyday Tobacco user Cigarette Packs Per Day: 2 Cigarettes Per Day: 40.0 Years Smoked: 5 Second Hand Smoke Exposure: Yes Have you been hit, kicked, punched, or otherwise hurt by someone within the past year? 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 Cognitive needs: No Hearing needs: Yes Vision needs: Yes Meds Allergies Allergy/AdvReac Type Severity Reaction Status Date / Time carvedilol AdvReac Severe Unknown Verified 12/07/22 07:46 Home Medications Medication Instructions Recorded Confirmed Last Taken Type aspirin 81 mg tablet,delayed 81 mg PO DAILY 05/23/20 11/25/22 Unknown History release Exam Exam Date and Time: December 25, 2022 1153 Pertinent Lab Results Pertinent Lab Results: Laboratory Tests 10/09/22 12/23/22 08:35 16:47 WBC 6.8 Hgb 14.6 Hct 39.8 L Plt Count 254 Sodium 132 L Potassium 4.3 Chloride 98 Carbon Dioxide 25 BUN 13 Creatinine 0.78 Narrative Narrative: EKG 11/2022 normal sinus rhythm with right bundle-branch block with inferior and septal Q-waves most likely suggestive of apical infarct. NM sonia perf SPECT rest & str 01/2022 Impression: 1. 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 Gated LVEF is 59% 3. Transient ischemic dilatation not present Stress EKG is negative for ischemia ECHO 01/2022 Conclusions: - Normal left ventricular size, thickness, and systolic function. The visually estimated ejection fraction is between 55-60%. - The apex, apical septum, and mid anteroseptal segments are akinetic. - Mildly increased right ventricular cavity size. There is normal right ventricular systolic function. Assessment and Plan Assessment Anesthesia Assessment: Chart Reviewed Documented by User: Caroline Darling MD 12/28/22 13:41 PMFSH Past Medical History Medical History Anxiety Normal colonoscopy (~08/29/12) Impaired fasting glucose Depression Smoker Fatigue Hyperlipidemia HTN (hypertension) CAD (coronary artery disease) Insomnia Family History Family History Father Diverticulitis Acute CVA (cerebrovascular accident) Mother Breast cancer CVD (cardiovascular disease) Stroke Maternal Aunt Graves disease Brother Diverticulitis Heart attack Sister Melanoma Son No problems noted. Family history of problems with anesthesia: No Surgical History Surgical History Stented coronary artery History of surgery Brain aneurysm History of vasectomy History of cardiac catheterization History of arthroscopy of left knee History of Problems with Anesthesia: No Social History Social History Housing: House Are you a primary career center director to a significant other at home: No Do you presently have visiting nurse or other home services: No Alcohol intake: current Alcohol intake frequency: 3 or more drinks per day Alcohol type: beer Patient Tobacco Use Status: Current everyday Tobacco user Cigarette Packs Per Day: 2 Cigarettes Per Day: 40.0 Years Smoked: 5 Second Hand Smoke Exposure: Yes Have you been hit, kicked, punched, or otherwise hurt by someone within the past year? 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 Discussed Final Anesthetic Review Family History of Problems with Anesthesia: No History of Problems with Anesthesia: No NPO: Yes ASA Class: III Final Preanesthetic Review: No Changes in Pt Med Stat, Meds/Allgs Chart Reviewed, Consent Obtained/Reviewed and Anes Risks/Benef Reviewed Patient Risk: Intermediate Procedure Risk: Intermediate Anesthetic Plan Anesthetic Plan: MAC: Disposition: Standard PACU
[2022-12-28 13:23] VITALS: BP 162/76; PULSE 81; RESP 18; TEMP 37.1; O2SAT 97; BMI 25.0; BMI 29.3
[2022-12-28] MEDS: Lactated Ringers 1,000 ML 100 ML IVCONT (13:32)
[2022-12-28 14:17] VITALS: BP 124/71; PULSE 84; RESP 16; TEMP 36.6; O2SAT 99
--- NOTE | 2022-12-28 14:29 | P.BOP_ITS ---
Brief Operative Note Date of Service: 12/28/22 Pre-op diagnosis: Dysphagia Post-op diagnosis: other (Small hiatal hernia, mild gastritis) Procedure: EGD with biopsies Surgeon: Hector Leach Anesthesia: MAC Was an Internet Consultant used for this Procedure?: No Estimated blood loss (mL): 2.0 Pathology: other (A. Gastric antrum B. EG Junction at 39cm) Condition: stable Disposition: PACU
[2022-12-28 14:32] VITALS: BP 120/81; PULSE 78; RESP 16; TEMP 37.1; O2SAT 100
--- NOTE | 2022-12-29 00:40 | OP_ITS ---
DATE OF SERVICE: 12/28/2022 SURGEON: Hector Leach MD INDICATIONS: The patient presents for evaluation of a sense of dysphagia and discomfort with swallowing. Full consent has been obtained from him for this, including risks of bleeding and perforation. PREOPERATIVE DIAGNOSIS: POSTOPERATIVE DIAGNOSIS: PROCEDURE PERFORMED: Esophagogastroduodenoscopy with biopsies. ESTIMATED BLOOD LOSS: COMPLICATIONS: ANESTHESIA: Medication used; monitored anesthesia care. ASSISTANTS: SPECIMENS: PREOPERATIVE DIAGNOSES: Dysphagia and discomfort with swallowing. POSTOPERATIVE DIAGNOSES: Dysphagia and discomfort with swallowing, small hiatal hernia, gastritis. DESCRIPTION OF PROCEDURE: The patient was placed in the left lateral decubitus position. The Olympus video gastroscope was passed in the posterior oropharynx and upper esophagus under direct vision. The scope was passed slowly to the distal esophagus. The gastroesophageal junction appeared at 39 cm. This area appeared regular, without any sign of esophagitis nor Brink's mucosa. There was no stricture nor mass. The scope easily entered the stomach. There was a small hiatal hernia. The scope was advanced to the pylorus and the duodenum was cannulated to the descending portion. The duodenum including the bulb appeared normal without mass or ulceration. The scope was withdrawn back in the stomach. The gastric antrum and body had some changes with mild gastritis with some erythema and edema. There was no erosions or ulceration. There was good peristalsis. The scope was retroflexed visualizing the proximal stomach carefully which appeared normal, without any sign of mass or ulceration. Biopsies were obtained from the gastric antrum. The scope was withdrawn back to the esophagus. The EG junction appeared basically normal. Biopsies were obtained, however. The entire esophagus was carefully inspected and appeared normal without any sign of esophagitis, lesions, nor stricture. The very proximal esophagus was carefully inspected as well and appeared normal. Visualization of the oropharynx was quite limited as he was having some coughing. The scope was withdrawn from the patient. He tolerated the procedure well and was returned to the recovery area in stable condition. IMPRESSION: 1. Small hiatal hernia. 2. Mild gastritis. PLAN: These findings would not account for his symptoms of the discomfort and sense of dysphagia. I shall put him on a trial of omeprazole just to treat any potential acid reflux that might be contributing to this. He was advised to resume his aspirin by tomorrow morning. He was reminded and given written instructions to speak with his providers about his hydrochlorothiazide as I told him to hold that as he had hyponatremia with a sodium as low as 126 back in September. His most recent sodium was up to 132, but I told him to check with his providers before resuming the hydrochlorothiazide. As far as his symptoms go, I would recommend a CT scan of his neck and ENT evaluation given his risk factors for head and neck cancer including his smoking and previous alcohol use. He was advised to speak with his PCP about obtaining referrals for those as well. This has all been discussed with him in detail. MD CATERINA Woods/WANG / [phone] MTDD
== END 2022-12-28 15:25 | disposition home or self-care (01) ==
PROVIDERS: PCP Nurse Practitioner Family; Visit Provider Internal Medicine
PROC: (CPT 43239; principal; 2022-12-28 13:50)
DX: R13.14 Dysphagia, pharyngoesophageal phase (principal); K29.60 Other gastritis without bleeding; K44.9 Diaphragmatic hernia without obstruction or gangrene; R05.9 Cough, unspecified; E87.1 Hypo-osmolality and hyponatremia; I25.2 Old myocardial infarction; I25.10 Atherosclerotic heart disease of native coronary artery without angina pectoris; Z95.5 Presence of coronary angioplasty implant and graft; I10 Essential (primary) hypertension; E78.5 Hyperlipidemia, unspecified; F10.90 Alcohol use, unspecified, uncomplicated; Z79.82 Long term (current) use of aspirin; F17.210 Nicotine dependence, cigarettes, uncomplicated; Z88.8 Allergy status to other drugs, medicaments and biological substances; Z79.899 Other long term (current) drug therapy
CPT/HCPCS: 43239; 88305; 88342; J2250

== ENCOUNTER 2023-01-20 08:42 | Outpatient (AMB) | payer MEDICARE, SELFPAY ==
--- NOTE | 2023-01-20 08:56 | A.OFFPC_ITS ---
Vital Signs 01/20/23 08:57 Height 5 ft 5 in Weight 152 lb 4 oz BMI 25.3 BP 126/74 Blood Pressure Location Lt brachial Position Sitting Pulse 60 Pulse Source Pulse Oximeter Pulse Oximetry (%) 98 Oxygen Delivery Method Room Air Intake Visit Reasons: 4m follow up Allergies carvedilol Adverse Reaction (Severe, Verified 01/20/23 09:00) Unknown Medication List - Last Reconciled 01/20/23 by JAGDEEP Prakash amlodipine 10 mg PO DAILY aspirin 81 mg PO DAILY atorvastatin 80 mg PO DAILY bisacodyl (Dulcolax (bisacodyl)) 20 mg (4 x 5 mg) PO ONCE 1 day ezetimibe 10 mg PO DAILY hydrochlorothiazide 12.5 mg PO QAM lisinopril 20 mg PO DAILY 90 days polyethylene glycol 3350 (Miralax) 238 grams PO ONCE 1 day ranolazine ER 500 mg PO BID sildenafil 50 mg PO DAILY PRN trazodone 100 mg (2 x 50 mg) PO BEDTIME 90 days Tobacco use date assessed: 01/20/23 Dental Screening Dental Screen Date: 01/20/23 Did you have a dental visit in the last 12 months?: Yes Did you have a dental problem in the last 6 months where you did not have access to dental care?: No Was dental information given to patient?: Patient has dentist HPI 4m follow up HPI Details pt reports having dysphagia. He reported seeing GI, reported that endo was done, and nothing was found. Pt does smoke and drink. Will refer to ENT. Patient does report her ongoing lower extremity edema. He is noted to be on amlodipine, which could cause this. 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 Question venous insufficiency as well, smokes quite a bit. He is part of her low-dose CT scan program. The patient is lying in bed, the bilateral lower extremity swelling does go away. Hypertension: Stable. Will repeat labs in another few months, cholesterols currently stable. [facility] Medical History Anxiety Normal colonoscopy (~08/29/12) Impaired fasting glucose Depression Smoker Fatigue Hyperlipidemia HTN (hypertension) CAD (coronary artery disease) Insomnia Surgical History Stented coronary artery History of surgery Brain aneurysm History of vasectomy History of cardiac catheterization History of arthroscopy of left knee Family History Father Diverticulitis Acute CVA (cerebrovascular accident) Mother Breast cancer CVD (cardiovascular disease) Stroke Maternal Aunt Graves disease Brother Diverticulitis Heart attack Sister Melanoma Son No problems noted. 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 Hector Bojorquez, Isabell Ascencio, Shaka Muñiz and colleagues, with an educational emeka from [employer]. Physical exam (Primary Care) Vital Signs: Last Vital Signs Pulse 60 01/20/23 08:57 BP 126/74 01/20/23 08:57 Pulse Ox 98 01/20/23 08:57 Oxygen Delivery Method Room Air 01/20/23 08:57 BMI result Body Mass Index 25.3 Tobacco/Smoking Status: Tobacco use Status Tobacco use date assessed 01/20/23 01/20/23 09:03 Patient Tobacco Use Status Current everyday Tobacco 01/20/23 09:03 Thrive Assessment: Date of Thrive Assessment Date Thrive assessed 09/23/22 01/20/23 09:03 Const General: cooperative, comfortable and no acute distress HENMT Mouth: Normal oral and palatal mucosa present Neck Lymphatic: no lymphadenopathy noted Resp Other: fairly clear bilat Cardio Rate: regular rate Rhythm: regular rhythm Heart sounds: S1 normal heart sound present and S2 normal heart sound present Extrem Other: +1 to BLE. Psych Appearance: grossly normal Mental Status: mental status grossly normal Affect: normal affect Attitude: cooperative Thought process: Normal thought process present Thought content: Normal thought content present Insight: Good insight present (Psych) Judgement: Good judgement present (Psych) Assessment and Plan Assessment & Plan (1) Dysphagia: Code(s): R13.10 - Dysphagia, unspecified Plan: already seen by GI, referring to ENT at this point (2) HTN (hypertension): Code(s): I10 - Essential (primary) hypertension Qualifiers: Hypertension type: essential hypertension Qualified Code(s): I10 - Essential (primary) hypertension Plan: stable (3) Hyperlipidemia: Code(s): E78.5 - Hyperlipidemia, unspecified Qualifiers: Hyperlipidemia type: pure hypercholesterolemia Qualified Code(s): E78.00 - Pure hypercholesterolemia, unspecified (4) EtOH dependence: Code(s): F10.20 - Alcohol dependence, uncomplicated Plan: work on quitting Orders: Orders Comprehensive [place]. Panel Fast Today E78.5 - Hyperlipidemia, unspecified, F10.20 - Alcohol dependence, uncomplicated, I10 - Essential (primary) hypertension UA CC w/rflx Micro + Cult Today E78.5 - Hyperlipidemia, unspecified, F10.20 - Alcohol dependence, uncomplicated, I10 - Essential (primary) hypertension Complete Blood Count Auto Diff Today E78.5 - Hyperlipidemia, unspecified, F10.20 - Alcohol dependence, uncomplicated, I10 - Essential (primary) hypertension TSH reflex Free T4 Today E78.5 - Hyperlipidemia, unspecified, F10.20 - Alcohol dependence, uncomplicated, I10 - Essential (primary) hypertension Lipid Panel Today E78.5 - Hyperlipidemia, unspecified, F10.20 - Alcohol dependence, uncomplicated, I10 - Essential (primary) hypertension CT soft tissue neck wo IV con Today F17.200 - Nicotine dependence, unspecified, uncomplicated, R13.10 - Dysphagia, unspecified Referrals Ear/Nose/Throat Referral R13.10 - Dysphagia, unspecified Medications: Refilled trazodone 100 mg (2 x 50 mg) PO BEDTIME 180 tabs 1RF 90 days G47.00 - Insomnia, unspecified sildenafil 50 mg PO DAILY PRN 20 tabs 0RF sexual activity Coding Level of Care Code Est Pt Level 3 (76017) Diagnoses Dysphagia R13.10 Essential hypertension I10 Hypertension type: essential hypertension Pure hypercholesterolemia E78.00 Hyperlipidemia type: pure hypercholesterolemia EtOH dependence F10.20
[2023-01-20 08:57] VITALS: BP 126/74; PULSE 60; O2SAT 98; BMI 25.3
== END 2023-01-20 09:25 | disposition home or self-care (01) ==
PROVIDERS: PCP Internal Medicine; Visit Provider Nurse Practitioner Family
DX: R13.10 Dysphagia, unspecified (principal); I10 Essential (primary) hypertension; E78.00 Pure hypercholesterolemia, unspecified; F10.20 Alcohol dependence, uncomplicated
CPT/HCPCS: 99213

== ENCOUNTER 2023-02-17 07:55 | Outpatient (REF) | payer MEDICARE, SELFPAY ==
[2023-02-17 11:34] LABS: MANUAL DIFF FLAG NO
[2023-02-17 11:37] LABS: Basophils Absolute Auto 0.1 X10*3/uL (0.0-0.2); Basophils Percent Auto 0.8 % (0-2); Eosinophils Absolute Auto 0.1 X10*3/uL (0.0-0.4); Eosinophils Percent Auto 1.1 % (0-4); Hematocrit 40.4 % (42.0-52.0); Hemoglobin 14.8 g/dl (14.0-18.0); Imm Gran Abs Auto 0.02 X10*3/uL (0.00-0.03); Imm Gran Pct Auto 0.3 % (0.0-0.4); Lymphocytes Absolute Auto 1.4 X10*3/uL (1.2-4.9); Lymphocytes Percent Auto 20.9 % (20-40); Mean Corpuscular HGB Conc 36.6 g/dl (31.0-36.0); Mean Corpuscular Hemoglobin 33.4 pg (27.0-33.0); Mean Corpuscular Volume 91.2 fL (80.0-98.0); Mean Platelet Volume 8.8 fL (9.4-12.4); Monocytes Absolute Auto 0.8 X10*3/uL (0.1-1.2); Monocytes Percent Auto 11.9 % (2-11); Neutrophils Absolute Auto 4.2 x10*3/uL (2.0-8.3); Platelet Count 282 X10*3/uL (160-400); Red Blood Count 4.43 X10*6/uL (4.60-5.80); Red Cell Distribution Width 11.5 % (11.0-16.0); White Blood Count 6.5 X10*3/uL (4.8-10.8)
[2023-02-17 11:56] LABS: Alanine Aminotransferase 29 U/L (0-40); Albumin Level 4.6 g/dL (3.5-5.0); Alkaline Phosphatase 57 U/L (39-117); Anion Gap 13 (12-20); Aspartate Amino Transferase 32 U/L (5-37); Bilirubin Total 0.5 mg/dL (0.0-1.0); Blood Urea Nitrogen 7 mg/dL (9-16); Calcium 9.4 mg/dL (8.4-10.2); Carbon Dioxide 22 mmol/L (22-29); Chloride 95 mmol/L (96-108); Cholesterol 138 mg/dL (<200); Estimated Glomerular Filt Rate > 60; Glucose Fasting 135 mg/dL (60-99); HDL Cholesterol 75 mg/dL (>40); LDL Cholesterol Calculated 56 mg/dL (<100); Potassium 4.7 mmol/L (3.3-5.1); Sodium 125 mmol/L (135-145); Total Protein 7.2 g/dL (6.5-8.0); Triglycerides 36 mg/dL (<150)
[2023-02-17 12:13] LABS: TSH reflex Free T4 0.39 uIU/mL (0.32-4.0)
[2023-02-20 01:14] LABS: A. Phagocytphilium DNA,RT-PCR NOT DETECTED (NOT DETECTED); Babesia Microti DNA, RT-PCR NOT DETECTED (NOT DETECTED); Borrelia Miyamotoi,DNA RT-PCR NOT DETECTED (NOT DETECTED); E.Chaffeensis DNA RT-PCR NOT DETECTED (NOT DETECTED); Lyme(Borrelia ssp)DNA RT-PCR NOT DETECTED (NOT DETECTED)
== END 2023-02-17 07:56 | disposition home or self-care (01) ==
LOC: HO.HMGCLDS 07:55
PROVIDERS: PCP Nurse Practitioner Family; Visit Provider Nurse Practitioner Family
DX: I10 Essential (primary) hypertension (principal); E78.5 Hyperlipidemia, unspecified; F10.20 Alcohol dependence, uncomplicated; T14.8XXA Other injury of unspecified body region, initial encounter; W57.XXXA Bitten or stung by nonvenomous insect and other nonvenomous arthropods, initial encounter; Y93.9 Activity, unspecified; Y92.9 Unspecified place or not applicable; Y99.9 Unspecified external cause status
CPT/HCPCS: 36415; 80053; 80061; 84443; 85025; 87468; 87469; 87478; 87484; 87798

== ENCOUNTER 2023-02-18 07:00 | Outpatient (REF) | payer MEDICARE, SELFPAY ==
[2023-02-18 11:54] LABS: Appearance Urine Clear; Color Urine Yellow; Glucose Urine UA Negative (Negative); Leukocyte Esterase Urine Negative (Negative); Nitrite Urine Negative (Negative); PH 6.5 (5.0-9.0); Specific Gravity - Urine 1.015 (1.005-1.025); Urine Blood Negative (Negative); Urine Ketones Negative (Negative); Urine Protein Negative (Neg-Trace)
== END 2023-02-18 07:01 | disposition home or self-care (01) ==
LOC: HO.HMGCLNP 07:00
PROVIDERS: PCP Nurse Practitioner Family; Visit Provider Nurse Practitioner Family
DX: I10 Essential (primary) hypertension (principal); E78.5 Hyperlipidemia, unspecified; F10.20 Alcohol dependence, uncomplicated
CPT/HCPCS: 81003

== ENCOUNTER 2023-03-09 10:38 | Outpatient (REF) | payer MEDICARE, SELFPAY ==
--- NOTE | ~2023-03-09 | CT_ITS ---
EXAMINATION: CT SOFT TISSUE NECK WITH CONTRAST CLINICAL INFORMATION: 62-year-old with nicotine dependence and dysphagia. COMPARISON: None available. TECHNIQUE: Following the intravenous administration of 60 mL of Omnipaque 350 intravenous contrast, helical imaging was performed in the axial plane with generation of coronal and sagittal reformatted images. This CT examination was performed using dose optimization techniques as appropriate, variously including the following: *Automated exposure control *Adjustment of mA and/or kV according to patient size (this includes techniques or standardized protocols for targeted exams where dose is matched to indication/reason for exam; i.e. extremities or head) *Use of iterative reconstruction technique DLP: 331 mGy-cm FINDINGS: Skull Base: The bony skull base and visualized calvarium appear grossly intact.?Limited assessment of the visualized intracranial and orbital soft tissue structures demonstrates no acute process. Atheromatous calcifications of the carotid siphons and vertebral arteries are noted.?The visualized mastoids and middle ear cavities are clear. Rabmfowj-ih-iquajk mucosal thickening in the right maxillary sinus is noted with occlusion of the right OMC with mild mucosal thickening in the left maxillary sinus. There is a 7 mm radiolucency surrounding a left maxillary tooth root which appears to communicate with the floor of the left maxillary sinus. Recommend correlation with dental examination. There is moderate mucosal thickening in the ethmoid complex, and there is a probable retention cyst in the left frontal sinus. Suprahyoid Neck: The nasopharynx, retropharynx and oropharynx appears smoothly contoured without nodularity or abnormal enhancement. Small calcified tonsilloliths are seen in the pharyngeal tonsils. The parotid glands are normal in morphology and enhance normally. The submandibular glands enhance normally and are normal in morphology. Dental amalgam artifact partially obscures the oral cavity structures. Within these limitations, the visualized base of the tongue and floor of the mouth structures appear symmetric and intact. There are multiple nonpathologic-appearing lymph nodes in the submandibular spaces and submental region. There are nonenlarged, nonpathologic-appearing bilateral IJ chain lymph nodes. No definite lymphadenopathy. Normally enhancing lingual tonsillar tissue noted with a normal appearance to the epiglottis. Small nonspecific calcifications are seen along the floor of the vallecula on the left with no associated mass lesion. Suggest correlation with direct visualization. Infrahyoid Neck: Hypopharynx is otherwise grossly unremarkable with smooth contours without mass lesion. The larynx is intact without focal lesion or abnormal enhancement. The thyroid gland is homogenous. No infrahyoid lymphadenopathy. Vascular: Atheromatous calcifications at both carotid bulbs are noted, also involving the bifurcations. Suggest correlation with carotid ultrasound. Upper Chest: The visualized lung parenchyma demonstrates no acute process. Visualized mediastinum demonstrates no definite lymphadenopathy. Scattered small mediastinal lymph nodes are noted. Skeletal: Discogenic degenerative changes with disc space height loss and spondylosis are noted at C5-C6 with mild retrolisthesis. There is uncovertebral arthrosis bilaterally at this level. Other Comments: None. CT/CT soft tissue neck w IV con IMPRESSION: 1. No soft tissue masses or lymphadenopathy are identified. 2. Small calcifications along the floor of the vallecula on the left with no associated mass lesion. Suggest correlation with direct visualization. 3. Atheromatous calcifications at both carotid bulbs and carotid bifurcations. Suggest correlation with carotid ultrasound. 4. Paranasal sinus inflammatory changes, as described above, with a 7 mm radiolucency surrounding a left maxillary tooth root which appears to communicate with the floor of the left maxillary sinus. Recommend correlation with dental examination. Differential diagnostic considerations include periapical infection versus radicular/odontogenic cyst. 5. Cervical degenerative changes.
[2023-03-09] MEDS: iohexoL 350 MG/ML 75 ML INFUS..BTL 60 ML IV (11:54)
== END 2023-03-09 10:39 | disposition home or self-care (01) ==
LOC: HO.CT 10:38
PROVIDERS: PCP Nurse Practitioner Family; Visit Provider Nurse Practitioner Family
DX: R13.10 Dysphagia, unspecified (principal); F17.200 Nicotine dependence, unspecified, uncomplicated
CPT/HCPCS: 70491; Q9967

== ENCOUNTER 2023-03-31 14:08 | Outpatient (REF) | payer MEDICARE, SELFPAY ==
--- NOTE | ~2023-03-31 | US_ITS ---
EXAMINATION: US EXTRACRANIAL CAROTID DUPLEX, BILATERAL CLINICAL INFORMATION: Atherosclerosis, abnormal CT. COMPARISON: Carotid ultrasound 06/02/2018. TECHNIQUE: Real-time ultrasound and Doppler techniques (integrating B-mode 2-D vascular images, Doppler spectral analysis and color-flow Doppler imaging) were utilized to interrogate the extracranial carotid arteries, the vertebral arteries and proximal subclavian arteries bilaterally. The degree of stenosis is determined by criteria similar to NASCET. FINDINGS: Right Side: 1. There is mild atherosclerotic plaque seen in the bifurcation/proximal ICA region. 2. The common carotid artery PSV proximally is 116 cm/s and distally 96 cm/s. 3. The proximal internal carotid artery velocities are 97 cm/s systolic and 19 cm/s diastolic. 4. The proximal external carotid artery PSV is 215 cm/s. 5. The vertebral artery shows antegrade flow. 6. The subclavian artery waveforms are normal. Left Side: 1. There is mild atherosclerotic plaque seen in the bifurcation/proximal ICA region. 2. The common carotid artery PSV proximally is 148 cm/s and distally 149 cm/s. 3. The proximal internal carotid artery velocities are 119 cm/s systolic and 31 cm/s diastolic. 4. The proximal external carotid artery PSV is 233 cm/s. 5. The vertebral artery shows antegrade flow. 6. The subclavian artery waveforms are normal. US/US carotid duplex BI IMPRESSION: 1. RIGHT: Minimal, non-hemodynamically significant stenosis of the proximal right internal carotid artery corresponding to a 0-49% stenosis by velocity criteria. 2. LEFT: Minimal, non-hemodynamically significant stenosis of the proximal left internal carotid artery corresponding to a 0-49% stenosis by velocity criteria. 3. There is no change in the category severity of disease when compared to the previous study dated 06/02/2018.
== END 2023-03-31 14:09 | disposition home or self-care (01) ==
LOC: HO.HMGCX 14:08
PROVIDERS: PCP Nurse Practitioner Family; Visit Provider Nurse Practitioner Family
DX: I65.23 Occlusion and stenosis of bilateral carotid arteries (principal); I70.90 Unspecified atherosclerosis; R93.89 Abnormal findings on diagnostic imaging of other specified body structures
CPT/HCPCS: 93880

== ENCOUNTER 2023-11-15 12:34 | Outpatient (AMB) | payer MEDICARE, SELFPAY ==
--- NOTE | 2023-11-15 12:36 | MHC.PC.OV ---
Vital Signs 11/15/23 12:39 Height 5 ft 5 in Weight 144 lb BMI 24.0 BP 130/84 Blood Pressure Location Lt brachial Position Sitting Pulse 79 Pulse Source Pulse Oximeter Pulse Oximetry (%) 97 Oxygen Delivery Method Room Air Intake Visit Reasons: Exhaustion, depression, HTN Intake Note: Patient here to address depression, no energy, head rushes Allergies carvedilol Adverse Reaction (Severe, Verified 11/15/23 12:40) Unknown Tobacco use date assessed: 11/15/23 Dental Screening Dental Screen Date: 11/15/23 Did you have a dental visit in the last 12 months?: Yes Did you have a dental problem in the last 6 months where you did not have access to dental care?: No Was dental information given to patient?: Patient has dentist HPI Exhaustion, depression, HTN HPI Details reports ongoing fatigue. Pt does appear stressed. 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 He reports smoking up to 2 packs per day, did not go yet this year for his follow up LDCT. Pt denies any CP, increased SOB, DE PAZ, blurred vision, or dizziness. [facility] Medical History Anxiety Normal colonoscopy (~08/29/12) Impaired fasting glucose Depression Smoker Fatigue Hyperlipidemia HTN (hypertension) CAD (coronary artery disease) Insomnia Surgical History Stented coronary artery History of surgery Brain aneurysm History of vasectomy History of cardiac catheterization History of arthroscopy of left knee Family History Father Diverticulitis Acute CVA (cerebrovascular accident) Mother Breast cancer CVD (cardiovascular disease) Stroke Maternal Aunt Graves disease Brother Diverticulitis Heart attack Sister Melanoma Son No problems noted. 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 40247 - PHQ-9 Billing: Patient declined-do not bill Source: Developed by Isabell Tomas Kurt Kroenke and colleagues, with an educational emeka from [employer]. Thrive Questionnaire Date Thrive assessed: 09/23/22 ELIZABETH-7 AMB Questionnaire ELIZABETH-7 Date ELIZABETH - 7 assessed: 09/23/22 Source: Developed by Isabell Tomas Kurt Kroenke and colleagues, with an educational emeka from [employer]. ELIZABETH-7 Assessment Billing ELIZABETH-7 Assessment Tool: pt declined-do not bill Physical exam (Primary Care) Vital Signs: Last Vital Signs Pulse 79 11/15/23 12:39 BP 130/84 11/15/23 12:39 Pulse Ox 97 11/15/23 12:39 Oxygen Delivery Method Room Air 11/15/23 12:39 BMI result Body Mass Index 24.0 Tobacco/Smoking Status: Tobacco use Status Tobacco use date assessed 11/15/23 11/15/23 12:44 Patient Tobacco Use Status Current everyday Tobacco 11/15/23 12:37 Thrive Assessment: Date of Thrive Assessment Date Thrive assessed 09/23/22 11/15/23 12:37 Const General: cooperative and comfortable Resp Auscultation: clear to auscultation bilaterally Cardio Rate: regular rate Rhythm: regular rhythm Heart sounds: S1 normal heart sound present and S2 normal heart sound present Extrem Right lower extremity: no edema Left lower extremity: no edema Psych Appearance: grossly normal Mental Status: mental status grossly normal Speech and movement: Normal speech and movement present Affect: normal affect Attitude: cooperative Thought process: Normal thought process present Thought content: Normal thought content present Insight: Good insight present (Psych) Judgement: Good judgement present (Psych) Assessment and Plan Assessment & Plan (1) HTN (hypertension): Code(s): I10 - Essential (primary) hypertension Qualifiers: Hypertension type: essential hypertension Qualified Code(s): I10 - Essential (primary) hypertension Plan: stable currently (2) Fatigue: Code(s): R53.83 - Other fatigue Qualifiers: Fatigue type: unspecified Qualified Code(s): R53.83 - Other fatigue Plan: labs ordered (3) Carotid stenosis: Code(s): I65.29 - Occlusion and stenosis of unspecified carotid artery Plan: US of carotids ordered Orders: Orders Complete Blood Count Auto Diff Today I10 - Essential (primary) hypertension Comprehensive [place]. Panel Fast Today I10 - Essential (primary) hypertension IRON PROFILE Today R53.83 - Other fatigue Vitamin B12 and Folate Today R53.83 - Other fatigue Testosterone, Free/Total Today R53.83 - Other fatigue TSH reflex Free T4 Today I10 - Essential (primary) hypertension UA CC w/rflx Micro + Cult Today I10 - Essential (primary) hypertension Lipid Panel Today I10 - Essential (primary) hypertension Prostate Specific Antigen Scr Today I10 - Essential (primary) hypertension Ferritin Today R53.83 - Other fatigue US carotid duplex BI Today I65.29 - Occlusion and stenosis of unspecified carotid artery Coding Level of Care Code Est Pt Level 3 (00133) Diagnoses Essential hypertension I10 Hypertension type: essential hypertension Fatigue, unspecified type R53.83 Fatigue type: unspecified Carotid stenosis I65.29
[2023-11-15 12:39] VITALS: BP 130/84; PULSE 79; O2SAT 97; BMI 24.0
== END 2023-11-15 13:13 | disposition home or self-care (01) ==
PROVIDERS: PCP Nurse Practitioner Family; Visit Provider Nurse Practitioner Family
DX: I10 Essential (primary) hypertension (principal); R53.83 Other fatigue; I65.29 Occlusion and stenosis of unspecified carotid artery
CPT/HCPCS: 99213

== ENCOUNTER 2023-11-17 08:37 | Outpatient (AMB) | payer MEDICARE, SELFPAY ==
--- NOTE | 2023-11-17 08:38 | MHC.OFFVIS ---
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 He said he was a lot of stress related taking care of his and his [id number]. He had few episodes in the last couple of months where he has had left arm discomfort radiating to the chest felt like pressure. Not always exertional in nature but can happen after he has been doing heavy work. He also had couple of episodes of double vision. Is nonobstructive carotid disease. His last LDL was well optimized. Advise unfortunately continues to smoke. He said he is not using alcohol. Denies any heart failure symptoms. Denies any claudication symptoms. [facility] Medical History CAD (coronary artery disease) History of ST elevation myocardial infarction (STEMI) (~2017) History of cardiac arrest (~2017) Stented coronary artery (~2017) HTN (hypertension) Hyperlipidemia Impaired fasting glucose Nicotine dependence, cigarettes, uncomplicated History of colon polyps Anxiety Depression Insomnia Surgical History History of colonoscopy History of heart artery stent History of cardiac catheterization History of surgery Brain aneurysm History of vasectomy History of arthroscopy of left knee Family History Father Diverticulitis Acute CVA (cerebrovascular accident) Mother Breast cancer CVD (cardiovascular disease) Stroke Maternal Aunt Graves disease Brother Diverticulitis Heart attack Sister Melanoma Son No problems noted. 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 Cognitive needs: No Hearing needs: Yes Vision needs: Yes Review of Systems Const Denies chills, Denies fatigue, Denies fever(s), Denies frequent falls, Denies weakness, Denies weight gain and Denies weight loss ENT Denies dizziness Card Denies chest pain, Denies leg edema, Denies lightheadedness, Denies palpitations, Denies dyspnea, Denies dyspnea on exertion, Denies orthopnea and Denies other (loss of consciousness) Resp Denies cough, Denies dyspnea and Denies dyspnea on exertion GI Denies hematochezia and Denies change in stool character Musc Denies abnormal gait, Denies muscle weakness, Denies numbness, Denies radiating pain into limb and Denies tingling Neuro Denies abnormal gait, Denies dizziness, Denies frequent falls, Denies numbness, Denies tingling and Denies weakness Endo Denies fatigue and Denies palpitations Physical Exam Vital Signs: Last Vital Signs Pulse 73 11/17/23 08:39 BP 120/70 11/17/23 08:39 BMI result Body Mass Index 23.5 Const General: cooperative, comfortable and no acute distress Orientation/consciousness: patient oriented x3 Neck Neck: Yes normal visual inspection and Yes no JVD Resp Effort & Inspection: normal respiratory effort Auscultation: clear to auscultation bilaterally, no crackles, no rales, no rhonchi and wheezes scattered wheezes Cardio Jugular venous distension: no JVD Rate: regular rate Rhythm: regular rhythm Heart sounds: S1 normal heart sound present, S2 normal heart sound present, no gallops, no murmurs and no rubs Neuro General: patient oriented x3 Extrem General: Yes normal to inspection Psych Appearance: grossly normal Mental Status: mental status grossly normal Speech and movement: Normal speech and movement present Office Procedures EKG Details: EKG shows normal sinus rhythm with right bundle-branch block with inferior infarct with septal infarct pattern as well. [id number], Complete Assessment & Plan Assessment & Plan (1) CAD (coronary artery disease): Comment: (STEMI with cardiac arrest 07/04/16 with 3 JIE to LAD, recurrent discomfort and 2 JIE to RCA) Code(s): I25.10 - Atherosclerotic heart disease of [place] coronary artery without angina pectoris Category: Medical Qualifiers: Coronary Disease-Associated Artery/Lesion type: [place] artery [place] vs. transplanted heart: [place] heart Associated angina: without angina Qualified Code(s): I25.10 - Atherosclerotic heart disease of [place] coronary artery without angina pectoris Plan: CAD with drug-eluting stent to LAD as well as to RCA with symptoms of left arm discomfort as well as chest discomfort sometimes under stressful situation currently could suggest myocardial ischemia. Would suggest exercise myocardial perfusion imaging to further assess for them. Also complains of symptoms of fatigue and shortness of breath. Will suggest an echocardiogram to evaluate LV systolic and diastolic function. Continue aspirin therapy. Smoking cessation was strongly recommended. Continue current lipid modification with high-intensity atorvastatin ezetimibe. Continue aggressive blood pressure control. Encouraged to continue to participate in physical activity as tolerated. He had a recent TIA sounding event with diplopia. Advise ophthalmic evaluation. He has bilateral nonobstructive carotid disease. Suggest dual antiplatelet therapy. He also think about it. (2) HTN (hypertension): Code(s): I10 - Essential (primary) hypertension Category: Medical Qualifiers: Hypertension type: essential hypertension Qualified Code(s): I10 - Essential (primary) hypertension Plan: Hypertension which is currently well optimized advised to monitor blood pressure and maintain a log. Goal blood pressure less than 130/84. Advised low-salt diet. Continue current therapy. Will follow up in the clinic in 1 year's time, sooner p.r.n.. Thank you for allowing me to partake in his care Orders: Orders NM cardiolite stress test 2 Weeks I25.10 - Atherosclerotic heart disease of [place] coronary artery without angina pectoris, R07.9 - Chest pain, unspecified CA stress test Today I25.10 - Atherosclerotic heart disease of [place] coronary artery without angina pectoris CA echo transthoracic complete Today I25.10 - Atherosclerotic heart disease of [place] coronary artery without angina pectoris Coding Level of Care Code Est Pt Level 4 (31161) Diagnoses Coronary artery disease involving [place] coronary artery of [place] heart without angina pectoris I25.10 Coronary Disease-Associated Artery/Lesion type: [place] artery [place] vs. transplanted heart: [place] heart Associated angina: without angina Essential hypertension I10 Hypertension type: essential hypertension CPT Codes EKG - CPT: 27138-[id number], Complete ([id number])
[2023-11-17 08:39] VITALS: BP 120/70; PULSE 73; BMI 23.5
== END 2023-11-17 09:05 | disposition home or self-care (01) ==
PROVIDERS: PCP Nurse Practitioner Family; Visit Provider Internal Medicine Cardiovascular Disease
DX: I25.10 Atherosclerotic heart disease of native coronary artery without angina pectoris (principal); I10 Essential (primary) hypertension
CPT/HCPCS: 93010; 99214

== ENCOUNTER → 2023-11-17 08:37 | Outpatient (BNVA) | payer MEDICARE, SELFPAY | PROVIDERS: PCP Nurse Practitioner Family; Visit Provider Internal Medicine Cardiovascular Disease | DX: I25.10 Atherosclerotic heart disease of native coronary artery without angina pectoris (principal); I10 Essential (primary) hypertension; I45.10 Unspecified right bundle-branch block; Z95.5 Presence of coronary angioplasty implant and graft; Z98.890 Other specified postprocedural states | CPT/HCPCS: 93005; 99212 ==

== ENCOUNTER 2023-12-03 07:55 | Outpatient (REF) | payer MEDICARE, SELFPAY ==
[2023-12-03 08:10] LABS: MANUAL DIFF FLAG NO
[2023-12-03 08:28] LABS: Basophils Absolute Auto 0.1 X10*3/uL (0.0-0.2); Basophils Percent Auto 0.9 % (0-2); Eosinophils Absolute Auto 0.1 X10*3/uL (0.0-0.4); Eosinophils Percent Auto 1.7 % (0-4); Hematocrit 35.7 % (42.0-52.0); Hemoglobin 12.9 g/dl (14.0-18.0); Imm Gran Abs Auto 0.04 X10*3/uL (0.00-0.03); Imm Gran Pct Auto 0.6 % (0.0-0.4); Lymphocytes Absolute Auto 1.1 X10*3/uL (1.2-4.9); Mean Corpuscular HGB Conc 36.1 g/dl (31.0-36.0); Mean Corpuscular Hemoglobin 33.5 pg (27.0-33.0); Mean Corpuscular Volume 92.7 fL (80.0-98.0); Mean Platelet Volume 8.2 fL (9.4-12.4); Monocytes Absolute Auto 0.8 X10*3/uL (0.1-1.2); Monocytes Percent Auto 11.5 % (2-11); Neutrophils Absolute Auto 4.5 x10*3/uL (2.0-8.3); Neutrophils Percent Auto 68.3 % (45-73); Platelet Count 225 X10*3/uL (160-400); Red Blood Count 3.85 X10*6/uL (4.60-5.80); Red Cell Distribution Width 12.1 % (11.0-16.0); White Blood Count 6.6 X10*3/uL (4.8-10.8)
[2023-12-03 08:29] LABS: Appearance Urine Clear; Color Urine Yellow; Glucose Urine UA Negative (Negative); Leukocyte Esterase Urine Negative (Negative); Nitrite Urine Negative (Negative); PH 6.5 (5.0-9.0); Specific Gravity - Urine 1.015 (1.005-1.025); Urine Blood Negative (Negative); Urine Ketones Negative (Negative); Urine Protein Negative (Neg-Trace)
[2023-12-03 09:21] LABS: Alanine Aminotransferase 25 U/L (0-40); Alkaline Phosphatase 52 U/L (39-117); Anion Gap 12 (12-20); Aspartate Amino Transferase 31 U/L (5-37); Bilirubin Total 0.5 mg/dL (0.0-1.0); Blood Urea Nitrogen 8 mg/dL (9-16); Carbon Dioxide 25 mmol/L (22-29); Chloride 100 mmol/L (96-108); Cholesterol 124 mg/dL (<200); Estimated Glomerular Filt Rate > 60; Ferritin 237 ng/mL (20-250); Glucose Fasting 122 mg/dL (60-99); HDL Cholesterol 65 mg/dL (>40); Iron 126 mcg/dL (45-160); LDL Cholesterol Calculated 49 mg/dL (<100); Percent Iron Saturation 50 % (15-50); Potassium 4.6 mmol/L (3.3-5.1); Sodium 132 mmol/L (135-145); TSH reflex Free T4 0.46 uIU/mL (0.32-4.0); Total Iron Binding Capacity 251 mcg/dL (228-428); Total Protein 6.3 g/dL (6.5-8.0); Triglycerides 50 mg/dL (<150); Unsaturated Iron Binding 125 ug/dL
[2023-12-03 09:28] LABS: Folate 10.7 ng/mL (> or = 4.0); Prostate Specific Antigen Scr 0.44 ng/mL (<0.05-4.0); Vitamin B12 271 pg/mL (200-900)
[2023-12-09 19:33] LABS: Testosterone, Total 705 ng/dL (250-1100)
== END 2023-12-03 07:56 | disposition home or self-care (01) ==
LOC: HO.LAB 07:55
PROVIDERS: PCP Nurse Practitioner Family; Visit Provider Nurse Practitioner Family
DX: I10 Essential (primary) hypertension (principal); R53.83 Other fatigue; Z12.5 Encounter for screening for malignant neoplasm of prostate
CPT/HCPCS: 36415; 80053; 80061; 81003; 82607; 82728; 82746; 83540; 84153; 84402; 84403; 84443; 85025

== ENCOUNTER → 2023-12-23 08:05 | Outpatient (REF) | payer MEDICARE, SELFPAY ==
--- NOTE | ~2023-12-23 | NM_ITS ---
EXERCISE MYOCARDIAL PERFUSION STUDY INDICATION: Chest pain with prior CAD to evaluate for myocardial ischemia TECHNIQUE: The patient was brought in for an exercise perfusion study on 12/23/2023. Patient performed exercise as per Willard protocol and was injected 25 mCi of sestamibi once target heart rate was achieved. Images were obtained using the SPECT gamma camera interlaced with the gating device. Images were obtained in supine position. Resting perfusion study was performed on 12/27/2023. Patient was administered 25 mCi of sestamibi intravenously at rest. Images were then obtained in supine position. Images obtained with and without CT attenuation. Total DLP 78 mGy-cm. Images were processed with the software and compared side to side in short axis, horizontal long axis and vertical long axis views. FINDINGS: Raw images were reviewed The stress perfusion study showed nonattenuated images show absent uptake and moderate size apex of the myocardium. There is also mildly reduced uptake in the distal septum and the basal septum of the LV myocardium. Attenuated corrected images also show a moderate-sized absent uptake in the apex of the LV myocardium.. The gated study shows low normal LV systolic function with calculated LVEF of 50%. LV cavity is mildly dilated in size. The gated study shows absent wall thickening and contraction of apical segments. Resting study shows no significant change in perfusion pattern compared to stress perfusion study. Gating at rest reveals apical wall motion abnormality with ejection fraction at 49%. The findings are consistent with transmural material infarct of the apex and nontransmural infarct of the basal septum without any reversible ischemia. NM/NM cardiolite stress test IMPRESSION: 1. Myocardial perfusion imaging study shows apical infarct with scar along with nontransmural infarct of the basal septum and LAD territory. 2. Gated LVEF is 50%. 3. Transient ischemic dilatation not present. EKG revealed negative for ischemia. Electronically signed by: Todd Negro MD 12/28/2023 04:38 PM EDT
--- NOTE | 2023-12-23 08:09 | CA_ITS ---
Transthoracic Echocardiogram Patient (Last, First, Middle): Lc Payan R Gender: Male Date of : 1960 Age: 63 Procedure Date: 12/23/2023 Procedure Type: Transthoracic Echocardiogram Location: OP Height: 165.1 cm Weight: 68.04 kg BSA: 1.75 m2 Heart Rate: bpm BP: 124 / 68 mmHg Lockstitch Collar Setter: SHAUN Referring MD: Todd Negro MD Symptoms: I25.10 - Atherosclerotic heart disease of [place] coronary artery without... Study Quality: Adequate ECG Rhythm: Sinus Conclusions: - The left ventricular systolic function is normal. The visually estimated ejection fraction is between 50-55%. - The apical inferior, apical septum, and mid anteroseptal segments are akinetic. - The inferolateral wall is hypokinetic. - No obvious valvular pathology seen on this study. Findings Left Ventricle Normal left ventricular cavity size. There is normal left ventricular wall thickness. The left ventricular systolic function is normal. The visually estimated ejection fraction is between 50-55%. There is no evidence of regional wall motion abnormalities. Diastolic function is normal for age. LV peak GLS -17.4%. Wall Motion Rest Echo Findings The inferolateral wall is hypokinetic. The apical inferior, apical septum, and mid anteroseptal segments are akinetic. Right Ventricle Moderately increased right ventricular cavity size. There is normal right ventricular systolic function. Atria Both atria are normal in size. Aortic Valve There is a normal trileaflet aortic valve. There is no aortic valve stenosis. There is no aortic valve regurgitation. Mitral Valve The mitral valve appears normal. There is no mitral valve regurgitation. There is no mitral valve stenosis. Pulmonic Valve The pulmonic valve is likely normal. Tricuspid Valve There is trace tricuspid valve regurgitation. There is no evidence of pulmonary hypertension. Great Vessels The asc aorta is normal in size. Small plaque is seen in the sino tubular ridge. Venous The inferior vena cava is normal in size and collapses greater than 50% with inspiration. Pericardium/Pleural There is no evidence of pericardial effusion. Prior Study Comparison Changes noted compared to prior study dated: 02/06/2022. Inferolateral wall motion abnormality more prominent, but image quality is also better. Recommendations, Care & Conclusions No obvious valvular pathology seen on this study. Measurements 2D Linear Measurements IVSd: 0.81 0.6-0.9/0.6-1.0 cm LVIDd: 4.86 3.9-5.3/4.2-5.9 cm LVIDd Index: 2.78 2.4-3.2/2.2-3.1 cm/m2 LVIDs: 3.13 2.0-3.6 cm LVPWd: 0.84 0.7-1.1 cm LA Diam: 2.80 2.7-3.8/3.0-4.0 cm LAIDs Index: 1.60 1.5-2.3 cm/m2 LV Mass: 166.89 67-162/88-224 g LV Mass Index: 95.36 43-95/49-115 g/m2 LVOT Diam: 2.20 3.0+(-)1.3 cm 2D Systolic Function EF 4C: 58.40 >55% EF 2C: 65.00 >55% EF BiP: 62.20 >55% Mitral Valve MV Pk E: 0.84 MV PK A: 0.72 MV Decel Time: 303.00 E/A: 1.20 E'Lateral: 9.36 E'Medial: 7.18 E/E' Med: 11.80 E/E' Lat: 9.00 PHT: 89.00 MVA PHT: 2.47 Decel Phillips: 2.79 Aortic Valve AoV Pk Singh: 1.69 AoV Mn Singh: 1.12 AoV VTI: 0.41 AoV Pk Grad: 11.00 Aov Mn Grad: 6.00 LUCERO Cont.VTI: 2.87 LVOT LVOT Pk Singh: 1.60 LVOT Mn Singh: 0.86 LVOT VTI: 0.31 LVOT Pk Grad: 10.00 LVOT Mn Grad: 4.00 LVOT Diam: 2.20 LVOT Area: 3.80 Diastolic Function MV Pk E: 0.84 MV Pk A: 0.72 E/A: 1.20 E'Medial: 7.18 E/E' Med: 11.80 E' Laterial: 9.36 E/E' Lat: 9.00 Right Ventricle TAPSE (mm): 29.10 TVS' Singh: 14.50 Tricuspid Valve RA Press: 3.00 Great Vessels Aorta Sinus of Valsalva: 3.76 2.0-3.[address] Ridge: 2.51 1.7-3.4 cm Ao Asc: 3.30 2.1-3.4 cm Updated in Other Vendor System with Status of Final Nacho Jansen MD electronically signed on 12/25/2023 2:18:51 PM with status of Final
--- NOTE | 2023-12-23 08:09 | CA_ITS ---
Acquisition Time: 2023-12-23 09:28:08 Total Exercise Time: 00:08:15 Test Indications: CP Medications: SEE H Protocol: DOMINICK Max HR: 137 BPM 87% of Pred: 157 BPM Max BP: 166/064 mmHG Max Work Load: 10.1 METS Exercise stress test with exercise 8 min 15 sec of Dominick protocol, achieving 87% MPHR, 10.1 METs, with moderate shortness of breath, no chest discomfort, with isolated PVC, with normotensive response to exercise, without EKG changes meeting criteria for ischemia. Nuclear images pending. Test reviewed with Dr Jansen. Referred By: Tdod Negro Overread By: FERNANDO ROMEO
--- NOTE | 2023-12-23 08:09 | ECG_ITS ---
Test Reason : cad hx Blood Pressure : / mmHG Vent. Rate : 085 BPM Atrial Rate : 085 BPM P-R Int : 158 ms QRS Dur : 154 ms QT Int : 436 ms P-R-T Axes : 084 203 053 degrees QTc Int : 518 ms Normal sinus rhythm Possible Left atrial enlargement Right bundle branch block Inferior infarct , age undetermined Anterior infarct , age undetermined Abnormal ECG When compared with ECG of 16-SEP-2008 09:27, Right bundle branch block is now Present Anterior infarct is now Present Inferior infarct is now Present Referred By: Todd Negro Electronically Signed By:CRISTINA CHOUDHARY
== END ==
LOC: HO.CARD 08:05
PROVIDERS: PCP Nurse Practitioner Family; Visit Provider Internal Medicine Cardiovascular Disease
DX: R07.9 Chest pain, unspecified (principal); I25.10 Atherosclerotic heart disease of native coronary artery without angina pectoris; R53.83 Other fatigue
CPT/HCPCS: 93005; 93017; 93306

== ENCOUNTER → 2023-12-23 08:09 | Outpatient (BNV) | payer MEDICARE, SELFPAY | PROVIDERS: PCP Nurse Practitioner Family; Visit Provider Nurse Practitioner Family | DX: R07.9 Chest pain, unspecified (principal) | CPT/HCPCS: 78452; 93016; 93018; 93320; 93325; 93350; 93356 ==

== ENCOUNTER 2023-12-23 10:48 | Outpatient (REF) | payer MEDICARE, SELFPAY ==
--- NOTE | ~2023-12-23 | CT_ITS ---
EXAMINATION: CT LOW-DOSE SCREENING CHEST WITHOUT CONTRAST CLINICAL INFORMATION: Nicotine dependence, cigarettes, uncomplicated. The patient is a current smoker with a 90 pack-year history of smoking. COMPARISON: CT chest July 08, 2022 and x-ray chest October 18, 2015. TECHNIQUE: Multidetector volumetric CT imaging of the chest is performed on a Siemens SOMATOM Definition scanner without contrast using low dose technique. Additional 2D coronal and sagittal reformatted images and axial 3D maximum intensity projection (MIP) images are generated on the CT workstation. This CT examination was performed using dose optimization techniques as appropriate, variously including the following: *Automated exposure control *Adjustment of mA and/or kV according to patient size (this includes techniques or standardized protocols for targeted exams where dose is matched to indication/reason for exam; i.e. extremities or head) *Use of iterative reconstruction technique TOTAL EXAM DLP: 47 mGy-cm. CTDIvol: 1.28 mGy. FINDINGS: PULMONARY NODULES: No suspicious pulmonary nodules. LUNGS: Lungs bilaterally symmetrically expanded. There is mild emphysema along with mild bronchial thickening without bronchiectasis. No effusion or pneumothorax. Central airways patent. MEDIASTINUM: No mediastinal, hilar or axillary adenopathy or free fluid collection. CORONARY ARTERY CALCIFICATION: Extensive THYROID GLAND: Unremarkable to the extent seen. CARDIOVASCULAR STRUCTURES: Aortic and heart size normal. No pericardial effusion. CHEST WALL/AXILLA: Unremarkable. UPPER ABDOMEN: Included portions of the solid organs in the upper abdomen unremarkable on noncontrast imaging. OSSEOUS STRUCTURES: No suspicious focal findings. CT/CT lung screening IMPRESSION: No evidence of malignancy ASSESSMENT: 1. Lung-RADS Category 1: Negative. There are no nodules or there are definitely benign nodules. N/A 2. Lung-RADS Category S: Negative. There are no clinically significant or potentially clinically significant findings not related to the lungs requiring urgent additional evaluation. RECOMMENDATION: Continued routine annual low-dose CT lung screening in 1 year is recommended. An order for CT CHEST LOW DOSE CANCER SCREENING ([id number]) can be placed. Electronically signed by: Alvaro Hampton MD 02/06/2024 01:05 AM EDT
== END 2023-12-23 10:49 | disposition home or self-care (01) ==
LOC: HO.CT 10:48
PROVIDERS: PCP Nurse Practitioner Family; Visit Provider Physician Assistant Medical
DX: Z12.2 Encounter for screening for malignant neoplasm of respiratory organs (principal); F17.210 Nicotine dependence, cigarettes, uncomplicated; I25.10 Atherosclerotic heart disease of native coronary artery without angina pectoris; R07.9 Chest pain, unspecified
CPT/HCPCS: 71271; 78452; 93005; 93017; 93306; 93356; A9500

== ENCOUNTER 2023-12-28 08:30 | Outpatient (REF) | payer MEDICARE, SELFPAY ==
--- NOTE | ~2023-12-28 | US_ITS ---
EXAMINATION: US EXTRACRANIAL CAROTID DUPLEX, BILATERAL CLINICAL INFORMATION: Carotid stenosis COMPARISON: 03/31/2023 and 06/02/2018 TECHNIQUE: Real-time ultrasound and Doppler techniques (integrating B-mode 2-D vascular images, Doppler spectral analysis and color-flow Doppler imaging) were utilized to interrogate the extracranial carotid arteries, the vertebral arteries and proximal subclavian arteries bilaterally. The degree of stenosis is determined by criteria similar to NASCET. FINDINGS: Right Side: 1. There is mild, calcified atherosclerotic plaque seen in the bifurcation/proximal ICA region. 2. The common carotid artery PSV proximally is 103 cm/s and distally 85 cm/s. 3. The proximal internal carotid artery velocities are 94 cm/s systolic and 26 cm/s diastolic. 4. The proximal external carotid artery PSV is 174 cm/s. 5. The vertebral artery shows antegrade flow. 6. The subclavian artery waveforms are normal. Left Side: 1. There is moderate, calcified atherosclerotic plaque seen in the bifurcation/proximal ICA region. 2. The common carotid artery PSV proximally is 128 cm/s and distally 105 cm/s. 3. The proximal internal carotid artery velocities are 132 cm/s systolic and 30 cm/s diastolic. 4. The proximal external carotid artery PSV is 173 cm/s. 5. The vertebral artery shows antegrade flow. 6. The subclavian artery waveforms are normal. US/US carotid duplex BI IMPRESSION: 1. RIGHT: Minimal, non-hemodynamically significant stenosis of the proximal right internal carotid artery corresponding to a 0-49% stenosis by velocity criteria. 2. LEFT: Moderate, hemodynamically significant stenosis of the proximal left internal carotid artery corresponding to a 50-79% stenosis by velocity criteria. 3. Increased velocity now seen within the left internal carotid artery compared to the prior exam. Visually the amount of calcified plaque is unchanged. Electronically signed by: Michael Waters MD 12/30/2023 02:26 PM EDT
== END 2023-12-28 08:31 | disposition home or self-care (01) ==
LOC: HO.HMGCX 08:30
PROVIDERS: PCP Nurse Practitioner Family; Visit Provider Nurse Practitioner Family
DX: I65.23 Occlusion and stenosis of bilateral carotid arteries (principal)
CPT/HCPCS: 93880

== ENCOUNTER 2024-02-08 10:44 | Outpatient (AMB) | payer MEDICARE, SELFPAY ==
--- NOTE | 2024-02-08 10:52 | MHC.OFFVIS ---
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 No complaints. 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 He does have a hx of CAD and TIA. He is a current 2ppd smoker for >50 years. He is not a diabetic. He is currently asymptomatic. He has not had any TIA or CVA symptoms since the initial TIA, unsure how long ago. He was also diagnosed with a brain aneurysm appx 5y ago in [place] but did not have any surgical intervention. He has a high stress home life, caring for his whom has Parkinson's. He does try to take time for himself with hunting and fishing. He has been having ongoing fatigue, likely related to the stress. [facility] Medical History CAD (coronary artery disease) History of ST elevation myocardial infarction (STEMI) (~2017) History of cardiac arrest (~2017) Stented coronary artery (~2017) HTN (hypertension) Hyperlipidemia Impaired fasting glucose Nicotine dependence, cigarettes, uncomplicated History of colon polyps Anxiety Depression Insomnia Surgical History History of colonoscopy History of heart artery stent History of cardiac catheterization History of surgery Brain aneurysm History of vasectomy History of arthroscopy of left knee Family History Father Diverticulitis Acute CVA (cerebrovascular accident) Mother Breast cancer CVD (cardiovascular disease) Stroke Maternal Aunt Graves disease Brother Diverticulitis Heart attack Sister Melanoma Son No problems noted. 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 Cognitive needs: No Hearing needs: Yes Vision needs: Yes Review of Systems Const Reports as per HPI and Denies weakness ENT Reports Normal hearing present and Denies dizziness Card Reports as per HPI, Denies chest pain, Denies chest pain at rest, Denies chest pain with activity, Denies dyspnea and Denies dyspnea on exertion Resp Reports as per HPI, Denies cough, Denies dyspnea and Denies dyspnea on exertion GI Reports as per HPI, Denies abdominal pain, Denies nausea and Denies vomiting Musc Denies numbness Skin/Breast Reports as per HPI, Denies erythema and Denies wounds Neuro Reports Normal hearing present, Denies dizziness, Denies numbness, Denies Sensory deficit (Neuro) and Denies weakness Psych Reports no additional complaints Endo Reports no additional complaints Physical Exam Vital Signs: Last Vital Signs BP 104/60 02/08/24 11:04 BMI result Body Mass Index 23.5 Const General: healthy appearing and no acute distress Orientation/consciousness: patient oriented x3 HEENT Head: Yes normal to inspection Ears: hearing grossly normal bilaterally Mouth: Normal oral and palatal mucosa present Resp Effort & Inspection: normal respiratory effort and able to speak in complete sentences Auscultation: clear to auscultation bilaterally Cardio Jugular venous distension: no JVD Rate: regular rate Rhythm: regular rhythm Heart sounds: S1 normal heart sound present and S2 normal heart sound present Bruits: no abdominal aortic bruits, no carotid bruits, no femoral bruits and no renal bruits Peripheral pulses: Peripheral pulses 2+ throughout GI Inspection: Yes normal to inspection Palpation (GI): No Abdominal aortic bruit present Skin General skin exam: no rashes or lesions noted Wounds: no wounds Hair: normal Neuro General: patient oriented x3 Cranial nerves: Yes Normal hearing present Cognition (Neuro): normal cognition Gait exam (Neuro): Normal gait present Motor exam (neuro): 5/5 motor strength present throughout Sensory Exam: No Sensory deficit (Neuro) Extrem General: Yes normal to inspection, Yes full ROM, Yes capillary refill normal and Yes normal gait Results Reviewed Results Reviewed: Reviewed Bilateral Carotid Duplex US from 12/28/23 Assessment & Plan Assessment & Plan (1) Carotid stenosis: Code(s): I65.29 - Occlusion and stenosis of unspecified carotid artery Category: Medical Qualifiers: Laterality: left Qualified Code(s): I65.22 - Occlusion and stenosis of left carotid artery Plan: Lc is presenting today for a follow up to bilateral carotid duplex US performed on 12/27. There is 50-79% moderate stenosis of the left proximal ICA with increased velocity and 0-49% minimal stenosis of the proximal right ICA. At this point, there is no surgical intervention required. We discussed continuing on a daily ASA, high dose Atorvastatin, and Ezetimibe. We discussed the importance of at least cutting back on his smoking, if he could not stop all together. We discussed a healthy, nutritious diet as well. We discussed that if has symptoms of weakness, lightheadedness, stroke-like symptoms, then we will likely need to perform surgical intervention. We would like him to return in 6m with another duplex US done prior to the visit. Coding Level of Care Code New Pt New Pt Level 4 (56761) Patient Type New Diagnoses Stenosis of left carotid artery I65.22 Laterality: left Comment review of US, pt education
[2024-02-08 11:04] VITALS: BP 100/60; BP 104/60; BMI 23.5
== END 2024-02-08 11:23 | disposition home or self-care (01) ==
PROVIDERS: PCP Nurse Practitioner Family; Visit Provider Physician Assistant Surgical
DX: I65.22 Occlusion and stenosis of left carotid artery (principal)
CPT/HCPCS: 99204; 99214

== ENCOUNTER → 2024-02-08 10:44 | Outpatient (BNVA) | payer MEDICARE, SELFPAY | PROVIDERS: PCP Nurse Practitioner Family; Visit Provider Physician Assistant Surgical | DX: I65.22 Occlusion and stenosis of left carotid artery (principal) | CPT/HCPCS: 99202 ==

== ENCOUNTER 2024-03-02 09:10 | Outpatient (AMB) | payer MEDICARE, SELFPAY ==
[2024-03-02 09:19] VITALS: BP 138/72; PULSE 83; O2SAT 97; BMI 24.2
--- NOTE | 2024-03-02 09:19 | MHC.PC.OV ---
Vital Signs 03/02/24 09:19 Height 5 ft 5 in Weight 145 lb 6 oz BMI 24.2 BP 138/72 Blood Pressure Location Lt brachial Position Sitting Pulse 83 Pulse Source Pulse Oximeter Pulse Oximetry (%) 97 Oxygen Delivery Method Room Air Intake Visit Reasons: 4 month follow up Intake Note: pt is here for 4 month follow up Fusion Analyst Required: No Accompanied by: Self / Same As Patient Allergies carvedilol Adverse Reaction (Severe, Verified 03/02/24 10:20) Unknown Medication List - Last Reconciled 03/02/24 by JAGDEEP Prakash amlodipine 10 mg PO DAILY aspirin 81 mg PO DAILY atorvastatin 80 mg PO DAILY ezetimibe 10 mg PO DAILY hydrochlorothiazide 12.5 mg PO QAM lisinopril 20 mg PO DAILY ranolazine ER 500 mg PO BID sildenafil 50 mg PO DAILY PRN trazodone 100 mg (2 x 50 mg) PO BEDTIME 90 days Tobacco use date assessed: 03/02/24 Dental Screening Dental Screen Date: 11/15/23 HPI 4 month follow up HPI Details HTN: Blood pressure is stable, managed with amlodipine 10mg, hydrochlorothiazide 12.5mg, and lisinopril 20mg. Dyslipidemia: Pt is taking atorvastatin 80mg and zetia 10mg. Will order labs. Denies chest pain, shortness of breath, headache, dizziness, and blurred vision. Pt will be seeing vascular due to carotid stenosis. Pt was section 35ed approximately 5 years ago. He is an avid reynold and has never mixed alcohol with firearms. Due to the section, pt has had complications with obtaining his gun permits and hunting licenses. Pt has paperwork regarding this which he will drop off and I will review this. Pt reports having only 1 beer 3 weeks ago. He no longer drinks heavily. [facility] History CAD (coronary artery disease) History of ST elevation myocardial infarction (STEMI) (~2017) History of cardiac arrest (~2017) Stented coronary artery (~2017) HTN (hypertension) Hyperlipidemia Impaired fasting glucose Nicotine dependence, cigarettes, uncomplicated History of colon polyps Anxiety Depression Insomnia Surgical History History of colonoscopy History of heart artery stent History of cardiac catheterization History of surgery Brain aneurysm History of vasectomy History of arthroscopy of left knee Family History Father Diverticulitis Acute CVA (cerebrovascular accident) Mother Breast cancer CVD (cardiovascular disease) Stroke Maternal Aunt Graves disease Brother Diverticulitis Heart attack Sister Melanoma Son No problems noted. 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 1. Little interest or pleasure in doing things: several days 2. Feeling down, depressed, or hopeless: not at all 3. Trouble falling or staying asleep, or sleeping too much: not at all 4. Feeling tired or having little energy: several days 5. Poor appetite or overeating: not at all 6. Feeling bad about yourself - or that you are a failure or have let yourself or your family down: not at all 7. Trouble concentrating on things, such as reading the newspaper or watching television: not at all 8. Moving or speaking so slowly that other people could have noticed. Or the opposite - being so fidgety or restless that you have been moving around a lot more than usual: not at all 9. Thoughts that you would be better off or of hurting yourself in some way: not at all Total score: 2 Depression Screening Interpretation: Negative Depression Screening Done: Yes 65474 - PHQ-9 Billing: Yes Source: Developed by Drs. Hector Bojorquez, Isabell Ascencio, Shaka Muñiz and colleagues, with an educational emeka from [employer]. Thrive Questionnaire Date Thrive assessed: 03/02/24 I am a: Patient What is your living situation today?: I have a steady place to live Within the past 12 months, did the food you bought not last and you didn't have the money to get more?: Never true Within the past 12 months, did you worry whether your food would run out before you got money to buy more?: Never true Do you have trouble paying for medicines?: No Do you have trouble getting transportation to medical appointments?: No Do you have trouble paying your heating and electricity bill?: No Do you have trouble taking care of your child, family member or friend?: No Do you have trouble with day-to-day activities such as bathing, preparing meals, shopping, managing finances, etc.?: No Are you currently unemployed and looking for a job?: No Are you interested in more education?: No Please select the resources that you would like help with: Care for elder or disabled Currently or been in a relationship where the following occur: No concerns reported THRIVE Score: 0 AUDIT C Alcohol Use Questionnaire (AUDIT-C) 1. How often do you have a drink containing alcohol?: Monthly or less 2. How many drinks containing alcohol do you have on a typical day when you are drinking?: 1 or 2 3. How often do you have six or more drinks on one occasion?: Never Total Score: 1 Score Reviewed/Action Taken: Yes ELIZABETH-7 AMB Questionnaire ELIZABETH-7 Date ELIZABETH - 7 assessed: 03/02/24 Feeling nervous, anxious, or on edge: 1 = Several days Not being able to stop or control worryin = Not at all Worrying too much about different things: 1 = Several days Trouble relaxin = Several days Being so restless that it is hard to sit still: 0 = Not at all Becoming easily annoyed or irritable: 0 = Not at all Feeling afraid as if something awful might happen: 0 = Not at all Total ELIZABETH-7 score (0-4 normal; 5-9 mild; 10-14 moderate; 15-21 severe): 3 Source: Developed by Drs. Hector Bojorquez, Isabell Ascencio, Shaka Muñiz and colleagues, with an educational emeka from [employer]. ELIZABETH-7 Assessment Billing ELIZABETH-7 Assessment Tool: ELIZABETH-7 Assessment 23483 Review of Systems Const Reports as per HPI Physical exam (Primary Care) Vital Signs: Last Vital Signs Pulse 83 03/02/24 09:19 BP 138/72 03/02/24 09:19 Pulse Ox 97 03/02/24 09:19 Oxygen Delivery Method Room Air 03/02/24 09:19 BMI result Body Mass Index 24.2 Tobacco/Smoking Status: Tobacco use Status Tobacco use date assessed 03/02/24 03/02/24 09:27 Patient Tobacco Use Status Current everyday Tobacco 03/02/24 09:20 PHQ-9: PHQ-9 Score PHQ-9: Total score 2 03/02/24 09:20 Depression Screening Interpretation: Negative Thrive Assessment: Date of Thrive Assessment Date Thrive assessed 03/02/24 03/02/24 09:20 Currently or been in a relationship where the following occur: No concerns reported Const General: cooperative Orientation/consciousness: patient oriented x3 Resp Other: slightly diminished, scattered wheezes Effort & Inspection: normal respiratory effort Cardio Rate: regular rate Rhythm: regular rhythm Heart sounds: S1 normal heart sound present, S2 normal heart sound present and no murmurs Neuro General: patient oriented x3 Extrem Right lower extremity: no edema Left lower extremity: no edema Psych Appearance: grossly normal Mental Status: mental status grossly normal Speech and movement: Normal speech and movement present Affect: normal affect Attitude: cooperative Thought process: Normal thought process present Thought content: Normal thought content present Insight: Good insight present (Psych) Judgement: Good judgement present (Psych) Coding Level of Care Code Est Pt Level 3 (45219) Diagnoses Essential hypertension I10 Hypertension type: essential hypertension Pure hypercholesterolemia E78.00 Hyperlipidemia type: pure hypercholesterolemia Alcohol abuse F10.10 Additional Codes ELIZABETH-7 Assessment Billing - ELIZABETH-7 Assessment Tool: ELIZABETH-7 Assessment 24969 ([id number]) PHQ-9 - 98337 - PHQ-9 Billing: Yes ([id number]) Assessment & Plan Assessment & Plan (1) HTN (hypertension): Code(s): I10 - Essential (primary) hypertension Category: Medical Qualifiers: Hypertension type: essential hypertension Qualified Code(s): I10 - Essential (primary) hypertension Plan: Stable, labs ordered (2) Hyperlipidemia: Code(s): E78.5 - Hyperlipidemia, unspecified Category: Medical Qualifiers: Hyperlipidemia type: pure hypercholesterolemia Qualified Code(s): E78.00 - Pure hypercholesterolemia, unspecified Plan: Labs ordered (3) Alcohol abuse: Code(s): F10.10 - Alcohol abuse, uncomplicated Category: Social Hx Plan: Pt will drop off paperwork for me to review. Pt no longer drinks heavily. Plan The patient agreed to the use of a medical reception for this encounter. Scribed for Lc Lewis [facility]- by Mayte Flood medical reception, on 03/02/2024 at 09:40 EST. Orders: Orders TSH reflex Free T4 Today E78.00 - Pure hypercholesterolemia, unspecified, I10 - Essential (primary) hypertension UA CC w/rflx Micro + Cult Today E78.00 - Pure hypercholesterolemia, unspecified, I10 - Essential (primary) hypertension Lipid Panel Today E78.00 - Pure hypercholesterolemia, unspecified, I10 - Essential (primary) hypertension Vitamin B12 and Folate Today F10.10 - Alcohol abuse, uncomplicated, I10 - Essential (primary) hypertension Complete Blood Count Auto Diff Today E78.00 - Pure hypercholesterolemia, unspecified, I10 - Essential (primary) hypertension Comprehensive [facility]. Panel Fast Today E78.00 - Pure hypercholesterolemia, unspecified, I10 - Essential (primary) hypertension
== END 2024-03-02 14:48 | disposition home or self-care (01) ==
PROVIDERS: PCP Nurse Practitioner Family; Visit Provider Nurse Practitioner Family
DX: I10 Essential (primary) hypertension (principal); E78.00 Pure hypercholesterolemia, unspecified; F10.10 Alcohol abuse, uncomplicated

== ENCOUNTER → 2024-03-02 09:10 | Outpatient (BNVA) | payer MEDICARE, SELFPAY | PROVIDERS: PCP Nurse Practitioner Family; Visit Provider Nurse Practitioner Family | DX: I10 Essential (primary) hypertension (principal); E78.00 Pure hypercholesterolemia, unspecified; F10.10 Alcohol abuse, uncomplicated | CPT/HCPCS: 96127; 99212 ==

== ENCOUNTER 2024-04-17 04:53 | Emergency (ER) | payer MEDICARE, SELFPAY ==
--- NOTE | ~2024-04-17 | XR_ITS ---
CLINICAL HISTORY: fall, sharp pain 2 view chest x-ray Comparison: CT/REG/SR - CT CHEST SCREENING - 01/10/20 08:42 EDT Findings: No consolidation or effusion. Heart size is normal. No acute fracture. IMPRESSION: 1. No acute findings. This document has been electronically signed by: Torey Rodriguez MD on 04/17/2024 06:30:29
[2024-04-17 05:00] VITALS: BP 136/64; PULSE 78; RESP 16; TEMP 36.8; O2SAT 97; BMI 23.3
--- NOTE | 2024-04-17 07:02 | ED_ITS ---
HPI - Fall General Chief Complaint: Fall Stated Complaint: Fall, right rib pain Time Seen by Provider: 04/17/24 06:58 Source: patient Mode of arrival: ambulatory Limitations: no limitations History of Present Illness ED Provider: Dr. Corrnie Jones HPI Narrative: Patient comes to the emergency room complaining of right-sided rib pain. Patient states that 2 days ago he slipped on black ice and landed on the right side of his chest. Patient denies shortness of breath. Patient denies hitting his head or losing consciousness, patient denies being on blood thinners. Related Data Home Medications ?Medication ?Instructions ?Recorded ?Confirmed aspirin 81 mg tablet,delayed 81 mg PO DAILY 05/23/20 03/02/24 release Previous Rx's ?Medication ?Instructions ?Recorded sildenafil 50 mg tablet 50 mg PO DAILY PRN sexual activity 01/20/23 #20 tabs atorvastatin 80 mg tablet 80 mg PO DAILY #90 tabs 09/17/23 lisinopril 20 mg tablet 20 mg PO DAILY #90 tabs 12/21/23 amlodipine 10 mg tablet 10 mg PO DAILY #90 tabs 01/13/24 ezetimibe 10 mg tablet 10 mg PO DAILY #90 tabs 01/13/24 hydrochlorothiazide 12.5 mg capsule 12.5 mg PO QAM #90 caps 01/13/24 ranolazine 500 mg tablet,extended 500 mg PO BID #180 tabs 01/13/24 release,12 hr trazodone 50 mg tablet 100 mg (2 x 50 mg) PO BEDTIME 90 03/15/24 days #180 tabs cyclobenzaprine 10 mg tablet 10 mg PO TID PRN muscle spasm #9 04/17/24 tabs oxycodone 5 mg tablet 5 mg PO BID PRN pain #8 tabs 04/17/24 Allergies Allergy/AdvReac Type Severity Reaction Status Date / Time carvedilol AdvReac Severe Unknown Verified 04/17/24 05:03 Review of Systems Review of Systems: Constitutional : No Weight loss, No Fever, No Chills, No Night Sweats, No Fatigue, No Malaise ENT/Mouth : No Hearing loss, No Ear Pain, No Nasal Congestion, No Sinus Pain, No Hoarseness, No sore throat, No Rhinorrhea, No Swallowing Difficulty Eyes: No Eye Pain, No Swelling, No Redness, No Foreign Body, No Discharge, No Vision Changes Cardiovascular : No Chest Pain, No SOB, No Dyspnea on Exertion, No Orthopnea, No Edema, No Palpitations Respiratory : No Cough, No Sputum, No Wheezing, No Smoke Exposure, No Dyspnea Gastrointestinal : No Nausea, No Vomiting, No Diarrhea, No Constipation, No abdominal Pain, No Hematochezia, No Melena Genitourinary : no irregular bleeding, No Dysuria, No Urinary Frequency, No Hematuria, No Urinary Incontinence, No Urgency, No Flank Pain, No Urinary Flow Changes, No Hesitancy Musculoskeletal : Patient complaining of rib pain on the right side lateral aspect and frontal aspect, No joint pain, No Myalgias, No Joint Swelling Skin : No Skin Lesions, No rash Neuro : No Weakness, No Numbness, No Paresthesias, No Loss of Consciousness, No Dizziness, No Headache Psych : No Anxiety/Panic, No Depression, No SI/HI/AH/VH, No Social Issues, Heme/Lymph: No Bruising, No Bleeding,No Lymphadenopathy Endocrine : No Polyuria, No Polydipsia, No Temperature Intolerance [facility] Past Medical History Medical History CAD (coronary artery disease) History of ST elevation myocardial infarction (STEMI) (~2017) History of cardiac arrest (~2017) Stented coronary artery (~2017) HTN (hypertension) Hyperlipidemia Impaired fasting glucose Nicotine dependence, cigarettes, uncomplicated History of colon polyps Anxiety Depression Insomnia Surgical History (Reviewed 03/02/24 @ 10:18 [facility] History of colonoscopy History of heart artery stent History of cardiac catheterization History of surgery Brain aneurysm History of vasectomy History of arthroscopy of left knee Family History Family History Father Diverticulitis Acute CVA (cerebrovascular accident) Mother Breast cancer CVD (cardiovascular disease) Stroke Maternal Aunt Graves disease Brother Diverticulitis Heart attack Sister Melanoma Son No problems noted. 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 Oriented X3. No acute distress. Eyes: Pupils equal, round and reactive to light. ENT: Pharynx normal. Neck: Normal inspection. Neck supple. No lymph nodes noted. No crepitus CVS: Normal heart rate and rhythm. Pulses normal. Normal S1 and S2 Respiratory: No respiratory distress. Breath sounds normal. No Wheezing. No rales Abdomen: Soft and nontender. No rigidity. No distention. Musculoskeletal: Reproducible pain to palpation over the ribs on the right side. No ecchymosis Skin: Skin warm and dry. Normal skin color. Normal skin turgor. Extremities: No lower extremity edema. No Lacerations. No Rash Neuro: Oriented X 3. No motor deficit. No sensory deficit. Moving all extremities. No slurred speech. CN 2 through 12 grossly intact Psych: calm, cooperative, normal affect Medical Decision Making Medical Decision Making MDM Narrative: Chest x-ray does not show any acute abnormality. Patient is driving, at this time, patient declined Tylenol since he has been taking it [id number], unable to take ibuprofen Discussed with the patient not to mix muscle relaxants and oxycodone. Only 1 at the time, possibly to avoid oxycodone. Independent Interpretation I performed an independent interpretation of an: Plain X-Ray Radiology Impression Discussion of test interpretation with radiology: I have reviewed the radiologist's reading. Radiologist Impression: No consolidation or effusion. Heart size is normal. No acute fracture. IMPRESSION: 1. No acute findings. Discharge Plan Discharge Clinical Impression: Costochondritis Patient Disposition: Home, Self-Care Instructions: Costochondritis (ED) Additional Instructions: Please follow-up with your primary care physician tomorrow. If you have any worsening or new symptoms, please return to the emergency room or call 911 Prescriptions: New oxycodone 5 mg tablet 5 mg PO BID PRN (Reason: pain) Qty: 8 0RF Rx Instructions: Partial Fill upon patient request. cyclobenzaprine 10 mg tablet 10 mg PO TID PRN (Reason: muscle spasm) Qty: 9 0RF No Action atorvastatin 80 mg tablet 80 mg PO DAILY Qty: 90 2RF lisinopril 20 mg tablet 20 mg PO DAILY Qty: 90 3RF ezetimibe 10 mg tablet 10 mg PO DAILY Qty: 90 3RF amlodipine 10 mg tablet 10 mg PO DAILY Qty: 90 3RF hydrochlorothiazide 12.5 mg capsule 12.5 mg PO QAM Qty: 90 3RF ranolazine 500 mg tablet extended release 12 hr 500 mg PO BID Qty: 180 3RF trazodone 50 mg tablet 100 mg PO BEDTIME 90 Days Qty: 180 1RF aspirin 81 mg tablet,delayed release (DR/EC) 81 mg PO DAILY sildenafil 50 mg tablet 50 mg PO DAILY PRN (Reason: sexual activity) Qty: 20 0RF Stand Alone Forms: Work/School Release Print Language: Argentine
== END 2024-04-17 07:55 | disposition home or self-care (01) ==
PROVIDERS: Emergency Provider Emergency Medicine; PCP Nurse Practitioner Family
DX: M94.0 Chondrocostal junction syndrome [Tietze] (principal); R07.81 Pleurodynia; I10 Essential (primary) hypertension; E78.5 Hyperlipidemia, unspecified; F17.210 Nicotine dependence, cigarettes, uncomplicated; Z79.02 Long term (current) use of antithrombotics/antiplatelets; Z79.899 Other long term (current) drug therapy
CPT/HCPCS: 71046; 99281; 99283

== ENCOUNTER → 2024-04-17 05:30 | Outpatient (BNV) | payer MEDICARE, SELFPAY | PROVIDERS: Emergency Provider Emergency Medicine; PCP Nurse Practitioner Family; Visit Provider Radiology Vascular & Interventional Radiology | DX: R07.82 Intercostal pain (principal) | CPT/HCPCS: 71046 ==

== ENCOUNTER 2024-06-19 16:31 | Emergency (ER) | payer MEDICARE, SELFPAY ==
--- NOTE | 2024-06-19 | ECG_ITS ---
Test Reason : cp Blood Pressure : */* mmHG Vent. Rate : 71 BPM Atrial Rate : 71 BPM P-R Int : 192 ms QRS Dur : 142 ms QT Int : 436 ms P-R-T Axes : 75 237 21 degrees QTcB Int : 473 ms Normal sinus rhythm Right bundle branch block Abnormal ECG When compared with ECG of 23-Dec-2023 08:10, Criteria for Anterior infarct are no longer Present No significant change was found Referred By: Generic ED Physician Electronically Signed By: BIJAL GARCIA MD
--- NOTE | ~2024-06-19 | XR_ITS ---
CLINICAL HISTORY: cp 2 view chest x-ray Comparison: CR - XR CHEST 2V - 04/17/24 05:36 EST Findings: No consolidation or effusion. Heart size is normal. No acute fracture. IMPRESSION: 1. No acute findings. This document has been electronically signed by: José Miguel Jama MD on 06/19/2024 19:04:48
[2024-06-19 17:09] VITALS: BP 126/61; PULSE 70; RESP 18; TEMP 36.4; O2SAT 98; BMI 23.1
--- NOTE | 2024-06-19 17:09 | ED_ITS ---
HPI - General Adult General Chief complaint: Chest Pain Stated complaint: pt states possible heart attack? Time Seen by Provider: 06/19/24 19:52 Source: patient Mode of arrival: ambulatory Limitations: no limitations History of Present Illness ED Provider: Angelique Nur PA-C HPI narrative: Patient is a 63 year old assigned male at with a history of HTN, HLD, CAD, and alcohol use presenting to the emergency department today with chest pain. Patient states that over the last week he has felt generally unwell and 2 days ago he began to have left sided chest pain that radiates into his left arm. Patient denies any dizziness, lightheadedness, abdominal pain, nausea, vomiting, fever, chills, blurry vision, double vision, loss of vision, difficulty breathing, shortness of breath, back pain, night sweats, pain with urination, increased urinary frequency, increased urinary urgency, blood in his urine or stool, syncope or a near syncopal episode, recent trauma or falls, bowel incontinence, bladder incontinence, or any other complaints at this time. Onset (ago): week(s) (1 (feeling generally unwell)) Relieving factors: none Exacerbating factors: none Associated symptoms: chest pain (x2 days) Treatments prior to arrival: none Related Data Home Medications ?Medication ?Instructions ?Recorded ?Confirmed aspirin 81 mg tablet,delayed 81 mg PO DAILY 05/23/20 03/02/24 release Previous Rx's ?Medication ?Instructions ?Recorded sildenafil 50 mg tablet 50 mg PO DAILY PRN sexual activity 01/20/23 #20 tabs atorvastatin 80 mg tablet 80 mg PO DAILY #90 tabs 09/17/23 lisinopril 20 mg tablet 20 mg PO DAILY #90 tabs 12/21/23 amlodipine 10 mg tablet 10 mg PO DAILY #90 tabs 01/13/24 ezetimibe 10 mg tablet 10 mg PO DAILY #90 tabs 01/13/24 hydrochlorothiazide 12.5 mg capsule 12.5 mg PO QAM #90 caps 01/13/24 ranolazine 500 mg tablet,extended 500 mg PO BID #180 tabs 01/13/24 release,12 hr trazodone 50 mg tablet 100 mg (2 x 50 mg) PO BEDTIME 90 03/15/24 days #180 tabs cyclobenzaprine 10 mg tablet 10 mg PO TID PRN muscle spasm #9 04/17/24 tabs oxycodone 5 mg tablet 5 mg PO BID PRN pain #8 tabs 04/17/24 Allergies Allergy/AdvReac Type Severity Reaction Status Date / Time carvedilol AdvReac Severe Unknown Verified 06/19/24 17:10 Review of Systems 2 Constitutional: Constitutional: Reports no additional constitutional complaints, Denies chills, Denies fever(s) and Denies night sweats Eyes: Eyes: Reports no additional eye complaints, Denies blurry vision, Denies change in vision, Denies diplopia, Denies eye discharge, Denies loss of vision and Denies eye pain ENT: Denies dizziness Cardiovascular: Cardiovascular: Reports no additional cardiovascular complaints, Reports chest pain (x2 days), Denies lightheadedness, Denies Loss of Consciousness and Denies dyspnea Respiratory: Respiratory: Reports no additional respiratory complaints and Denies dyspnea Gastrointestinal: Gastrointestinal: Reports no additional gastrointestinal complaints, Denies abdominal pain, Denies melena, Denies hematochezia, Denies change in bowel habits and Denies change in stool character Genitourinary: Genitourinary: Reports no additional male genitourinary complaints, Denies hematuria, Denies oliguria, Denies difficulty urinating, Denies dysuria, Denies urinary frequency, Denies urinary hesitancy, Denies urinary incontinence and Denies urinary urgency Musculoskeletal: Musculoskeletal: Reports no additional musculoskeletal complaints, Denies numbness and Denies tingling Neurologic: Denies dizziness, Denies loss of vision, Denies numbness and Denies tingling Psychiatric: Psychiatric: Reports no additional psychiatric complaints Endocrine: Endocrine: Reports no additional endocrine complaints Hematologic/Lymphatic: Hematologic/Lymphatic: Reports no additional hematologic/lymphatic complaints Allergic/Immunologic: Allergic/Immunologic: Reports no additional allergic/immunologic complaints [facility] Past Medical History Attestation statement: The following information was validated with the patient. Source: old records reviewed and nursing notes reviewed Medical History CAD (coronary artery disease) History of ST elevation myocardial infarction (STEMI) (~2017) History of cardiac arrest (~2017) Stented coronary artery (~2017) HTN (hypertension) Hyperlipidemia Impaired fasting glucose Nicotine dependence, cigarettes, uncomplicated History of colon polyps Anxiety Depression Insomnia Surgical History History of colonoscopy History of heart artery stent History of cardiac catheterization History of surgery Brain aneurysm History of vasectomy History of arthroscopy of left knee Family History Family History Father Diverticulitis Acute CVA (cerebrovascular accident) Mother Breast cancer CVD (cardiovascular disease) Stroke Maternal Aunt Graves disease Brother Diverticulitis Heart attack Sister Melanoma Son No problems noted. 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 Cognitive needs: No Hearing needs: Yes Vision needs: Yes Physical Exam ED Vital Signs: Vital Signs - 24 hr 06/19/24 17:09 06/19/24 19:51 06/19/24 19:53 Temperature 97.6 F 97.8 F 97.8 F Pulse Rate 70 65 65 Respiratory Rate 18 20 20 Blood Pressure 126/61 137/56 L 137/56 L Pulse Oximetry 98 98 98 Oxygen Delivery Method Room Air Room Air Room Air BMI result Body Mass Index 23.1 Const General: cooperative, no acute distress, alert and awake Nutritional Appearance: well nourished Orientation/consciousness: patient oriented x3 Limitations: no limitations HENMT Head: Yes normal to inspection and Yes atraumatic Ears: hearing grossly normal bilaterally and external ears normal General nose exam: Normal external nose present, no nasal discharge noted and no epistaxis Face and sinus: Yes normal facial exam, No abrasion and No laceration Mouth: Normal oral and palatal mucosa present, no drooling and no muffled voice Eyes General: appearance normal, both eyes and all related structures Periorbital: periorbital findings normal Eyelids: Yes eyelids normal Conjunctivae: conjunctivae normal Pupils: Equal, round and reactive pupils present EOM: EOMs intact bilaterally Neck Neck: Yes normal visual inspection, Yes full ROM and Yes no lymphadenopathy Chest Chest palpation & inspection: normal inspection of the chest Resp Effort & Inspection: normal respiratory effort and able to speak in complete sentences GI Inspection: Yes normal to inspection Neuro General: patient oriented x3, moves all extremities and CN's II-XI intact bilaterally Cranial nerves: Yes Equal, round and reactive pupils present Cognition (Neuro): normal cognition Extrem General: Yes normal to inspection, Yes full ROM and Yes capillary refill normal Psych Appearance: grossly normal Mental Status: mental status grossly normal Affect: normal affect Attitude: cooperative Thought process: Normal thought process present Thought content: Normal thought content present Insight: Good insight present (Psych) Course Course Course Narrative: RME performed by Angelique Nur PA-C. Patient is a 63 year old assigned male at presenting to the emergency department with left sided chest pain that radiates down his left arm. Patient states that he has been having a lot of stress and is having left sided chest pain that radiates down his left arm. Detailed physical exam and review of systems are deferred to the partition assembly machine operator. EKG, labs, imaging, and swabs ordered. Patient placed back in the waiting room pending room availability and results. Medical Decision Making Medical Decision Making MDM Narrative: Patient is a 63 year old assigned male at with a history of HTN, HLD, CAD, and alcohol use presenting to the emergency department today with chest pain. Patient's physical exam was unremarkable. Patient's blood work was unremarkable including flat troponins. Patient's EKG was unremarkable. Patient's chest x-ray showed no acute process. Patient's clinical presentation is most consistent with atypical chest pain. I explained my physical exam findings as well as all test results to the patient. I answered all questions asked by the patient. Patient stated that his is home with Parkinson's and his mother in law is home with severe dementia so he would like to be discharged. I stressed the importance of the patient taking his medication as directed (either prescribed or as the over the counter packaging recommends). I stressed the importance of the patient following up with his primary care provider and pre parole counseling aide. I stressed the importance of the patient returning to the emergency department immediately if his symptoms were to worsen or if he were to develop any dizziness, shortness of breath, difficulty breathing, chest pain, blurry vision, loss of vision, nausea, vomiting, abdominal pain, fever, chills, back pain, or any other complaints. Patient verbalized agreement and understanding with this treatment plan and discharge. Differential Diagnosis Differential Diagnoses: The differential diagnosis associated with the presentation includes NSTEMI STEMI Chest pain Atypical chest pain Admission/Observation Consideration of admission/observation: Escalation of care including admission/observation considered Patient would have been admitted to the hospital had his work up had any findings where hospital admission was appropriate and his clinical presentation warranted hospital admission. Lab Data [facility] Lab Attestation statement: I reviewed the patient's lab results. My interpretation of these results are in the [facility] Rationale portion of this note. 06/19/24 17:22 06/19/24 17:22 Labs: Lab Results 06/19/24 06/19/24 Range/Units 17:22 18:56 WBC 6.5 (4.8-10.8) X10*3/uL RBC 3.72 L (4.60-5.80) X10*6/uL Hgb 12.4 L (14.0-18.0) g/dl Hct 34.2 L (42.0-52.0) % MCV 91.9 (80.0-98.0) fL MCH 33.3 H (27.0-33.0) pg MCHC 36.3 H (31.0-36.0) g/dl RDW 12.2 (11.0-16.0) % Plt Count 224 (160-400) X10*3/uL MPV 7.9 L (9.4-12.4) fL Immature Gran % (Auto) 0.3 (0.0-0.4) % Neut % (Auto) 48.3 (45-73) % Lymph % (Auto) 33.9 (20-40) % [place] % (Auto) 13.8 H (2-11) % Eos % (Auto) 2.6 (0-4) % Baso % (Auto) 1.1 (0-2) % Lymph # (Auto) 2.2 (1.2-4.9) X10*3/uL [place] # (Auto) 0.9 (0.1-1.2) X10*3/uL Eos # (Auto) 0.2 (0.0-0.4) X10*3/uL Baso # (Auto) 0.1 (0.0-0.2) X10*3/uL Abs Immat Gran (auto) 0.02 (0.00-0.03) X10*3/uL Absolute Neuts (auto) 3.2 (2.0-8.3) x10*3/uL Absolute Nucleated RBC 0.000 (0.0-0.012) X10*3/uL Nucleated RBC % (auto) 0.0 (0.0-0.2) /100WBC PT 9.8 L (10.9-12.4) SEC INR 0.8 L (0.9-1.1) APTT 28.7 (26.0-36.8) SEC Sodium 131 L (135-145) mmol/L Potassium 4.1 (3.3-5.1) mmol/L Chloride 97 (96-108) mmol/L Carbon Dioxide 26 (22-29) mmol/L Anion Gap 12 (12-20) BUN 7 L (9-16) mg/dL Creatinine 0.74 (0.5-1.4) mg/dL Estim Creat Clear Calc 88.8 Estimated GFR > 60 Random Glucose 92 (60-115) mg/dL Calcium 8.7 (8.4-10.2) mg/dL Magnesium 2.2 (1.6-2.6) mg/dL Total Bilirubin 0.3 (0.0-1.0) mg/dL AST 38 H (5-37) U/L ALT 32 (0-40) U/L Alkaline Phosphatase 64 (39-117) U/L Troponin I High Sens 5.7 5.7 (<3.5-35.0) ng/L Total Protein 6.9 (6.5-8.0) g/dL Albumin 4.2 (3.5-5.0) g/dL Influenza Type A (PCR) NEGATIVE (Negative) Influenza Type B (PCR) NEGATIVE (Negative) RSV RNA Qual (PCR) NEGATIVE (Negative) SARS-CoV-2 RNA (RT-PCR) NEGATIVE (Negative) Independent Interpretation I performed an independent interpretation of an: EKG and Plain X-Ray Interpretation: My interpretation is in agreement with the radiologist's impression of this imaging study. L CLINICAL HISTORY: cp 2 view chest x-ray Comparison: CR - XR CHEST 2V - 04/17/24 05:36 EST Findings: No consolidation or effusion. Heart size is normal. No acute fracture. IMPRESSION: 1. No acute findings. This document has been electronically signed by: José Miguel Jama MD on 06/19/2024 19:04:48 Dictated By: José Miguel Jama MD Signed By: Electronically signed by José Miguel Jama MD 06/19/24 1906 I independently interpreted this EKG and am in agreement with the below findings: Vent. Rate: 71 BPM Atrial Rate: 71 BPM P-R Int: 192 ms QRS Dur: 142 ms QT Int: 436 ms P-R-T Axes: 75 237 21 degrees QTcB Int: 473 ms Normal sinus rhythm Right bundle branch block When compared with ECG of 23-Dec-2023 08:10, Criteria for Anterior infarct are no longer Present No significant change was found DD/ [id number] Radiology Impression Discussion of test interpretation with radiology: I have reviewed the radiologist's reading. Chronic Conditions Patient?s care impacted by: Hypertension Discharge Plan Discharge Clinical Impression: Chest pain Patient Disposition: Home, Self-Care Instructions: Chest Pain (DC) Additional Instructions: Follow up with your primary care provider and pre parole counseling aide. Return to the emergency department immediately if your symptoms worsen or if you develop any dizziness, shortness of breath, difficulty breathing, chest pain, blurry vision, loss of vision, nausea, vomiting, abdominal pain, fever, chills, back pain, or any other complaints. Prescriptions: No Action atorvastatin 80 mg tablet 80 mg PO DAILY Qty: 90 2RF lisinopril 20 mg tablet 20 mg PO DAILY Qty: 90 3RF ezetimibe 10 mg tablet 10 mg PO DAILY Qty: 90 3RF amlodipine 10 mg tablet 10 mg PO DAILY Qty: 90 3RF hydrochlorothiazide 12.5 mg capsule 12.5 mg PO QAM Qty: 90 3RF ranolazine 500 mg tablet extended release 12 hr 500 mg PO BID Qty: 180 3RF trazodone 50 mg tablet 100 mg PO BEDTIME 90 Days Qty: 180 1RF oxycodone 5 mg tablet 5 mg PO BID PRN (Reason: pain) Qty: 8 0RF Rx Instructions: Partial Fill upon patient request. cyclobenzaprine 10 mg tablet 10 mg PO TID PRN (Reason: muscle spasm) Qty: 9 0RF aspirin 81 mg tablet,delayed release (DR/EC) 81 mg PO DAILY sildenafil 50 mg tablet 50 mg PO DAILY PRN (Reason: sexual activity) Qty: 20 0RF Referrals: Jana Blair PA [Primary Care Provider] - Interventions: ED Discharge Assessment Last Done: 06/19/24 19:53 Discharge Date/Time: 06/19/24 19:56 Print Language: French
[2024-06-19 17:25] LABS: MANUAL DIFF FLAG NO
[2024-06-19 17:28] LABS: Basophils Absolute Auto 0.1 X10*3/uL (0.0-0.2); Basophils Percent Auto 1.1 % (0-2); Eosinophils Absolute Auto 0.2 X10*3/uL (0.0-0.4); Eosinophils Percent Auto 2.6 % (0-4); Hematocrit 34.2 % (42.0-52.0); Hemoglobin 12.4 g/dl (14.0-18.0); Imm Gran Abs Auto 0.02 X10*3/uL (0.00-0.03); Imm Gran Pct Auto 0.3 % (0.0-0.4); Lymphocytes Absolute Auto 2.2 X10*3/uL (1.2-4.9); Lymphocytes Percent Auto 33.9 % (20-40); Mean Corpuscular HGB Conc 36.3 g/dl (31.0-36.0); Mean Corpuscular Hemoglobin 33.3 pg (27.0-33.0); Mean Corpuscular Volume 91.9 fL (80.0-98.0); Mean Platelet Volume 7.9 fL (9.4-12.4); Monocytes Absolute Auto 0.9 X10*3/uL (0.1-1.2); Monocytes Percent Auto 13.8 % (2-11); Neutrophils Absolute Auto 3.2 x10*3/uL (2.0-8.3); Neutrophils Percent Auto 48.3 % (45-73); Platelet Count 224 X10*3/uL (160-400); Red Blood Count 3.72 X10*6/uL (4.60-5.80); Red Cell Distribution Width 12.2 % (11.0-16.0); White Blood Count 6.5 X10*3/uL (4.8-10.8)
[2024-06-19 17:34] LABS: INTERNATIONAL NORM RATIO 0.8 (0.9-1.1); Prothrombin Time 9.8 SEC (10.9-12.4)
[2024-06-19 17:37] LABS: Partial Thromboplastin Time 28.7 SEC (26.0-36.8)
[2024-06-19 17:40] LABS: Alanine Aminotransferase 32 U/L (0-40); Albumin Level 4.2 g/dL (3.5-5.0); Alkaline Phosphatase 64 U/L (39-117); Anion Gap 12 (12-20); Aspartate Amino Transferase 38 U/L (5-37); Bilirubin Total 0.3 mg/dL (0.0-1.0); Blood Urea Nitrogen 7 mg/dL (9-16); Calcium 8.7 mg/dL (8.4-10.2); Carbon Dioxide 26 mmol/L (22-29); Chloride 97 mmol/L (96-108); Creatinine Clr Calc Pharmacy 88.8; Estimated Glomerular Filt Rate > 60; Glucose Random 92 mg/dL (60-115); Magnesium 2.2 mg/dL (1.6-2.6); Potassium 4.1 mmol/L (3.3-5.1); Sodium 131 mmol/L (135-145); Total Protein 6.9 g/dL (6.5-8.0)
[2024-06-19 17:47] LABS: Troponin-I High Sensitivity 5.7 ng/L (<3.5-35.0)
--- OUTSIDE RECORDS SUMMARY | 2024-06-19 19:09 | XMS_ITS ---
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 Encounters Encounter Location Date Provider Diagnosis [facility] [address] [place] [address] 11/18/2023 Hector Leach PLAN OF TREATMENT Next Appt Details Provider Name:Hector Leach , 07/14/2024 02:40:00 PM, [address], [address], [place], [address],
--- OUTSIDE RECORDS SUMMARY | 2024-06-19 19:09 | XMS_ITS | Clinical Summary ---
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 Name Role Phone Unavailable Primary Care Provider Unavailabl e Social History Tobacco Use Types Packs/Day Years Used Date Smoking Tobacco: Never Assessed Sex and Gender Information Value Date Recorded Sex Assigned at Not on file Legal Sex Male 7:57 PM EST Gender Identity Not on file Sexual Orientation Not on file Plan of Treatment Health Maintenance Due Date Last Done Comments DTaP,Tdap,and Td Vaccines (1 - Tdap) 11/27/1979 Pneumococcal Vaccine: 50+ Ye ars (1 of 1 - PCV) 2010 Zoster Vaccines (1 of 2) 2010 Cholesterol Screening (Lipid Panel) 11/16/2023 Colorectal Cancer Screening: Colonoscopy 11/16/2023 Depression Screening 11/16/2023 HIV Screening 11/16/2023 Hepatitis C Screening 11/16/2023 Social Influencers of Health Screening 11/16/2023 COVID-19 Vaccine ( - 2023-2 5 season) 2023 Influenza Vaccine (#1) 2023 RSV Immunization Patients 60 + Years Old (1 - 1-dose 75+ series) 11/27/2035 HIB Vaccines Aged Out No longer eligi ble based on patient's age to complete this topic HPV Vaccines Aged Out No longer eligi ble based on patient's age to complete this topic Hepatitis A Vaccines Aged Out No long er eligible based on patient's age to complete this topic Hepatitis B Vaccines Aged Out No long er eligible based on patient's age to complete this topic IPV Vaccines Aged Out No longer eligi ble based on patient's age to complete this topic MMR Vaccines Aged Out No longer eligi ble based on patient's age to complete this topic Meningococcal ACWY Vaccine Aged Out N o longer eligible based on patient's age to complete this topic Meningococcal B Vacine Aged Out No lo nger eligible based on patient's age to complete this topic Pneumococcal Vaccine: Pediat rics (0 to 5 Years) and At-Risk Patients (6 to 64 Years) Aged Out No longer eligible b ased on patient's age to complete this topic RSV Immunization Patients Un shira 20 months Aged Out No longer eligible b ased on patient's age to complete this topic Varicella Vaccines Aged Out No longer eligible based on patient's age to complete this topic
--- OUTSIDE RECORDS SUMMARY | 2024-06-19 19:09 | XMS_ITS | Patient Health Record ---
Author Organization [facility] Address [address] [place] [address] Care Team Providers Care Medical Affairs Director Name Role Phone CHINA MITCHELL Primary Care Provider Hector Monson Unavailable [phone] ALLERGIES No Known Allergies REASON FOR REFERRAL No Information MEDICATIONS Medication SIG (Take, Route, Frequency, Duration) Notes Start Date End Date Status Omeprazole 20 MG TAKE 1 TABLET ORALLY EVERY MORNING 30 DAY(S) for 90 Active traZODone HCl 50 MG TAKE 2 TABLETS BY [facility] AT BEDTIME FOR 90 DAYS Oral for 90 Active Lisinopril 20 MG Oral for 90 A ctive Atorvastatin Calcium 80 MG Oral for 90 Active Aspirin Adult Low Dose 81 MG 1 tablet Or ally Once a day for 30 day(s) Active Ranolazine ER 500 MG TAKE 1 TAB BY MOUTH TWICE A DAY FOR 90 DAYS Oral for 90 Active Ezetimibe 10 MG TAKE 1 TABLET ( 10MG ) BY MOUTH DAILY. Oral for 90 Active amLODIPine Besylate 10 MG Oral for 90 Active hydroCHLOROthiazide 12.5 MG Oral for 90 Active SOCIAL HISTORY Sex Assigned At : Social History Observation Description Sex Assigned At Unknown Alcohol Screen Question Answer Notes Did you have a drink contain ing alcohol in the past year? Yes How often did you have a dri nk containing alcohol in the past year? Monthly or less (1 point) How many drinks did you have on a typical day when you were drinking in the past year? 1 or 2 drinks (0 point) How often did you have 6 or more drinks on one occasion in the past year? Never (0 point) Points 1 Interpretation Negative PROBLEMS Problem Type ICD Code Onset Dates Problem Status W/U Status Risk SNOMED Code Notes Problem Dysphagia (R13.10) Active confirmed Dys phagia (31244505) Problem Gastritis (K29.70) Active confirmed Gas tritis (4443256) Problem Pharyngoesophageal dysphagia (R13.14) Active confirmed 56194642 Problem Hyponatremia (E87.1) Active confirmed 8 [id number] Encounters Encounter Location Date Provider Diagnosis [facility] [address] [place] [address] 03/28/2024 Hector Leach [facility] [address] [place] [address] 11/18/2023 Hector Leach PLAN OF TREATMENT Pending Test Test Name Order Date CHEM 7 PROFILE 12/22/2022 Pathology 12/28/2022 Future Test Test Name Order Date COLONOSCOPY 12/17/2011 UPPER GI ENDOSCOPY BALLOOON DILATION OF ESOPH 12/22/2022 Next Appt Details Provider Name:Hector Leach , 07/14/2024 02:40:00 PM, [address] [facility], [address], [place], [address], Insurance Providers Payer Name Payer Address Payer Phone Subscriber Number Group Number Insured Name Patient Relationship to Insured Coverage Start Date Coverage End Date MEDICARE OF [place] [address] [place] [address] [phone] [id number] CHINA DOUGHERTY Self - patient is the insured [employer] ATT[employer] CLAIMS [address] [place] [address] [id number] CHINA DOUGHERTY Self - patient is the insured MEDICAL (GENERAL) HISTORY Medical History History ICD Code Denies DM,CVA,Lung disease,renal disease Torn biceps but no surgery [place] 2016 with 3 stents placed in 2016 and 2 in approx. 2018--sees Dr Marky CALDERON Hypertension Colonoscopy 2012 with a hyperplastic kim yp Hyperlipidemia Hyponatremia on hydrochlorothiazide Negative screening CT scan of the chest in June 2022 Surgical History Surgery Date(Month/Year) Knee surgery 25 years ago Removal of basal cell carncinoma Vasectomy
--- OUTSIDE RECORDS SUMMARY | 2024-06-19 19:09 | XMS_ITS ---
Author Organization [facility] Address [address] [place] [address] Care Team Providers Care Tool Grinding Technician Name Role Phone CHINA MITCHELL Primary Care Provider Hector Monson [phone] Encounters Encounter Location Date Provider Diagnosis [facility] [address] [facility] [address] [place] [address] 04/24/2023 Hector Leach PLAN OF TREATMENT Next Appt Details Provider Name:Hector Leach , 07/14/2024 02:40:00 PM, [address], [address], [place], [address],
--- OUTSIDE RECORDS SUMMARY | 2024-06-19 19:09 | XMS_ITS ---
Author Organization [facility] Address [address] [place] [address] Care Team Providers Care Director Payer Name Role Phone CHINA MITCHELL Primary Care Provider Hector Monson [phone] REASON FOR VISIT Patient presents today for a COLON SCREENING Encounters Encounter Location Date Provider Diagnosis [facility] [address] [facility] [address] [place] [address] 03/28/2024 Hector Leach PLAN OF TREATMENT Next Appt Details Provider Name:Hector Leach , 07/14/2024 02:40:00 PM, [address] [facility] [address] [facility], [address], [place], [address],
[2024-06-19 19:23] LABS: Troponin-I High Sensitivity 5.7 ng/L (<3.5-35.0)
[2024-06-19 19:42] LABS: Influenza A PCR NEGATIVE (Negative); Influenza B PCR NEGATIVE (Negative); Resp Syncy Virus RNA Qual PCR NEGATIVE (Negative); SARS COV2 PCR INHOUSE NEGATIVE (Negative)
[2024-06-19 19:51] VITALS: BP 137/56; PULSE 65; RESP 20; TEMP 36.6; O2SAT 98
[2024-06-19 19:53] VITALS: BP 137/56; PULSE 65; RESP 20; TEMP 36.6; O2SAT 98
== END 2024-06-19 19:56 | disposition home or self-care (01) ==
PROVIDERS: Physician Assistant Medical; Emergency Provider Student in an Organized Health Care Education/Training Program; PCP Physician Assistant
DX: R07.9 Chest pain, unspecified (principal); I10 Essential (primary) hypertension; I25.10 Atherosclerotic heart disease of native coronary artery without angina pectoris; I25.2 Old myocardial infarction; Z86.74 Personal history of sudden cardiac arrest; Z03.818 Encounter for observation for suspected exposure to other biological agents ruled out
CPT/HCPCS: 0241U; 36415; 71046; 80053; 83735; 84484; 85025; 85610; 85730; 93005; 99283

== ENCOUNTER → 2024-06-19 16:57 | Outpatient (BNV) | payer MEDICARE, SELFPAY | PROVIDERS: Emergency Provider Student in an Organized Health Care Education/Training Program; PCP Physician Assistant; Visit Provider Internal Medicine Cardiovascular Disease | DX: I45.10 Unspecified right bundle-branch block (principal) | CPT/HCPCS: 93010 ==

== ENCOUNTER → 2024-06-19 18:25 | Outpatient (BNV) | payer MEDICARE, SELFPAY | PROVIDERS: Emergency Provider Student in an Organized Health Care Education/Training Program; PCP Physician Assistant; Visit Provider Student in an Organized Health Care Education/Training Program | DX: R07.1 Chest pain on breathing (principal) | CPT/HCPCS: 71046 ==

== ENCOUNTER 2024-08-27 23:10 | Emergency (ER) | payer MEDICARE, SELFPAY ==
--- NOTE | 2024-08-27 23:13 | ECG_ITS ---
Test Reason : CHEST PAIN Blood Pressure : */* mmHG Vent. Rate : 54 BPM Atrial Rate : 54 BPM P-R Int : 162 ms QRS Dur : 156 ms QT Int : 510 ms P-R-T Axes : 76 245 29 degrees QTcB Int : 483 ms Sinus bradycardia with sinus arrhythmia Right bundle branch block Cannot rule out Inferior infarct , age undetermined Abnormal ECG When compared with ECG of 19-Jun-2024 16:57, No significant change was found Referred By: Generic ED Physician Electronically Signed By: BIJAL GARCIA MD
[2024-08-27 23:31] VITALS: BP 130/70; PULSE 64; RESP 16; TEMP 36.6; O2SAT 99; BMI 22.7
[2024-08-27 23:46] VITALS: BP 131/68; PULSE 61; RESP 17; O2SAT 100
--- NOTE | 2024-08-27 23:46 | ED_ITS ---
HPI - Chest Pain General Chief Complaint: Chest Pain Stated Complaint: chest pain Time Seen by Provider: 08/27/24 23:45 Source: patient Mode of arrival: ambulatory Limitations: no limitations History of Present Illness ED Provider: HPI narrative: Patient is 63 years old with history of hypertension, STEMI with cardiac arrest 07/04/16 with 3 JIE to LAD, recurrent discomfort and 2 JIE to RCA, again he had 2 stents placed in 2020 smoker comes here for chest pain started just prior to arrival while watching TV denies any significant shortness a breath no diaphoresis patient felt pain as tight feeling chest tightness feeling lasted for about half an hour no pain at this time no diaphoresis no radiation of the pain Related Data Home Medications ?Medication ?Instructions ?Recorded ?Confirmed aspirin 81 mg tablet,delayed 81 mg PO DAILY 05/23/20 03/02/24 release Previous Rx's ?Medication ?Instructions ?Recorded sildenafil 50 mg tablet 50 mg PO DAILY PRN sexual activity 01/20/23 #20 tabs lisinopril 20 mg tablet 20 mg PO DAILY #90 tabs 12/21/23 amlodipine 10 mg tablet 10 mg PO DAILY #90 tabs 01/13/24 ezetimibe 10 mg tablet 10 mg PO DAILY #90 tabs 01/13/24 hydrochlorothiazide 12.5 mg capsule 12.5 mg PO QAM #90 caps 01/13/24 ranolazine 500 mg tablet,extended 500 mg PO BID #180 tabs 01/13/24 release,12 hr trazodone 50 mg tablet 100 mg (2 x 50 mg) PO BEDTIME 90 03/15/24 days #180 tabs cyclobenzaprine 10 mg tablet 10 mg PO TID PRN muscle spasm #9 04/17/24 tabs oxycodone 5 mg tablet 5 mg PO BID PRN pain #8 tabs 04/17/24 atorvastatin 80 mg tablet 80 mg PO DAILY #90 tabs 06/23/24 Allergies Allergy/AdvReac Type Severity Reaction Status Date / Time carvedilol AdvReac Severe Unknown Verified 08/27/24 23:34 Review of Systems 2 Review of Systems: Yes all other systems are reviewed and are negative PMFSH Past Medical History Medical History CAD (coronary artery disease) History of ST elevation myocardial infarction (STEMI) (~2017) History of cardiac arrest (~2017) Stented coronary artery (~2017) HTN (hypertension) Hyperlipidemia Impaired fasting glucose Nicotine dependence, cigarettes, uncomplicated History of colon polyps Anxiety Depression Insomnia Surgical History History of colonoscopy History of heart artery stent History of cardiac catheterization History of surgery Brain aneurysm History of vasectomy History of arthroscopy of left knee Family History Family History Father Diverticulitis Acute CVA (cerebrovascular accident) Mother Breast cancer CVD (cardiovascular disease) Stroke Maternal Aunt Graves disease Brother Diverticulitis Heart attack Sister Melanoma Son No problems noted. Social History Social History Housing: House Are you a primary wound care rn to a significant other at home: No Do you presently have visiting nurse or other home services: No Alcohol intake: current Alcohol intake frequency: 3 or more drinks per day Alcohol type: beer Patient Tobacco Use Status: Current everyday Tobacco user Cigarette Packs Per Day: 1.5 Cigarettes Per Day: 30 Years Smoked: 5 Smoked in Last 30 Days: Yes Second Hand Smoke Exposure: Yes Use of substances other than those prescribed or required for medical reasons: No Advance Directives: No Advance Directives Information Provided: Yes Do you have a plan to hurt others: No Plan service: No Current occupational status: retired 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 Oriented X3. No acute distress. Eyes: PERRLA, No Nystagmus ENT: Pharynx normal. Oral Mucosa moist Neck: Normal inspection. Neck supple. CVS: Normal heart rate and rhythm. Pulses normal. Respiratory: No respiratory distress. Equal air entry bilateral, no wheezing/rales/rhonchi Abdomen: Soft and nontender. Bowel sounds are present, no mass palpable, no CVA tenderness Skin: Skin warm and dry. Normal skin color. Normal skin turgor. Extremities: No lower extremity edema. No calf tenderness Neuro: Oriented X 3. No motor deficit. No sensory deficit.No cerebellar signs , cranial nerves II-XII intact Medications Administered Discontinued Medications Generic Name Dose Route Start Last Admin Trade Name Bill PRN Reason Stop Dose Admin Aspirin 162 mg 08/28/24 00:09 08/28/24 00:18 Aspirin Enteric Coated 81 Mg Tablet. PO 08/28/24 00:10 162 mg ONCE ONE Administration Nitroglycerin 0.5 inch 08/28/24 00:09 08/28/24 00:18 Nitroglycerin 2 % Oint 1 Gm Packet TRANSDERMA 08/28/24 00:10 0.5 inch ONCE ONE Administration Medical Decision Making Medical Decision Making [facility] Narrative: Patient has significant coronary artery disease status post stent placement and cardiac arrest comes here for the chest pain initial troponin and cardiogram was without any ischemic changes patient has refused to stay in the hospital although allowed to drop 2nd troponin signed against medical advice as his needs help patient advised to come back to the hospital as soon as possible for further evaluation Differential Diagnosis Differential Diagnoses: The differential diagnosis associated with the presentation includes Admission/Observation Consideration of admission/observation: Escalation of care including admission/observation considered Lab Data [facility] Lab Attestation statement: I reviewed the patient's lab results. 08/27/24 23:45 08/27/24 23:45 Labs: Lab Results 08/27/24 08/28/24 08/28/24 Range/Units 23:45 00:08 01:23 WBC 7.7 (4.8-10.8) X10*3/uL RBC 3.98 L (4.60-5.80) X10*6/uL Hgb 13.3 L (14.0-18.0) g/dl Hct 36.2 L (42.0-52.0) % MCV 91.0 (80.0-98.0) fL MCH 33.4 H (27.0-33.0) pg MCHC 36.7 H (31.0-36.0) g/dl RDW 11.8 (11.0-16.0) % Plt Count 209 (160-400) X10*3/uL MPV 8.0 L (9.4-12.4) fL Immature Gran % (Auto) 0.4 (0.0-0.4) % Neut % (Auto) 48.9 (45-73) % Lymph % (Auto) 37.3 (20-40) % Ceiba % (Auto) 10.3 (2-11) % Eos % (Auto) 2.3 (0-4) % Baso % (Auto) 0.8 (0-2) % Lymph # (Auto) 2.9 (1.2-4.9) X10*3/uL Ceiba # (Auto) 0.8 (0.1-1.2) X10*3/uL Eos # (Auto) 0.2 (0.0-0.4) X10*3/uL Baso # (Auto) 0.1 (0.0-0.2) X10*3/uL Abs Immat Gran (auto) 0.03 (0.00-0.03) X10*3/uL Absolute Neuts (auto) 3.8 (2.0-8.3) x10*3/uL Absolute Nucleated RBC 0.000 (0.0-0.012) X10*3/uL Nucleated RBC % (auto) 0.0 (0.0-0.2) /100WBC PT 10.6 L (10.9-12.4) SEC INR 0.9 (0.9-1.1) APTT 27.5 (26.0-36.8) SEC Sodium 128 L (135-145) mmol/L Potassium 3.8 (3.3-5.1) mmol/L Chloride 95 L (96-108) mmol/L Carbon Dioxide 23 (22-29) mmol/L Anion Gap 14 (12-20) BUN 11 (9-16) mg/dL Creatinine 0.72 (0.5-1.4) mg/dL Estim Creat Clear Calc 91.3 Estimated GFR > 60 Random Glucose 112 (60-115) mg/dL Calcium 9.2 (8.4-10.2) mg/dL Magnesium 1.6 (1.6-2.6) mg/dL Total Bilirubin 0.8 (0.0-1.0) mg/dL AST 29 (5-37) U/L ALT 29 (0-40) U/L Alkaline Phosphatase 52 (39-117) U/L Troponin I High Sens 3.5 6.4 D (<3.5-35.0) ng/L Total Protein 6.4 L (6.5-8.0) g/dL Albumin 4.2 (3.5-5.0) g/dL Independent Interpretation I performed an independent interpretation of an: EKG Interpretation: Sinus bradycardia with heart rate 54 beats per minute right bundle-branch block normal intervals normal axis no acute ST-T changes no acute ischemia Discharge Plan Discharge Clinical Impression: Chest pain Patient Disposition: Left Against Medical Advice Instructions: Chest Pain (ED) Additional Instructions: Your chest pain is likely from cardiac origin at this time there is no evidence of major heart attack but is possible that you may have evolving LA You need to stay in the hospital for further evaluation and management But your decided to go against medical advice Continue your medications and seek medical attention LORI Prescriptions: No Action lisinopril 20 mg tablet 20 mg PO DAILY Qty: 90 3RF ezetimibe 10 mg tablet 10 mg PO DAILY Qty: 90 3RF amlodipine 10 mg tablet 10 mg PO DAILY Qty: 90 3RF hydrochlorothiazide 12.5 mg capsule 12.5 mg PO QAM Qty: 90 3RF ranolazine 500 mg tablet extended release 12 hr 500 mg PO BID Qty: 180 3RF trazodone 50 mg tablet 100 mg PO BEDTIME 90 Days Qty: 180 1RF atorvastatin 80 mg tablet 80 mg PO DAILY Qty: 90 3RF oxycodone 5 mg tablet 5 mg PO BID PRN (Reason: pain) Qty: 8 0RF Rx Instructions: Partial Fill upon patient request. cyclobenzaprine 10 mg tablet 10 mg PO TID PRN (Reason: muscle spasm) Qty: 9 0RF aspirin 81 mg tablet,delayed release (DR/EC) 81 mg PO DAILY sildenafil 50 mg tablet 50 mg PO DAILY PRN (Reason: sexual activity) Qty: 20 0RF Stand Alone Forms: Against Medical Advice Interventions: ED Discharge Assessment Last Done: 08/28/24 01:33 Discharge Date/Time: 08/28/24 01:34 Print Language: Bengali
--- NOTE | 2024-08-27 23:46 | MHC.EDTECH ---
Addendum entered by [place] 08/27/24 23:56: assumed care of pt at this time Original Note: pt changed over into hospital gown and placed on cardiac surgeon, VS taken in traige, Blood work obtained, IV placed via RN, and EKG taken and report given to provider. Call light given for safety.
[2024-08-27 23:52] LABS: MANUAL DIFF FLAG NO
[2024-08-27 23:53] LABS: Basophils Absolute Auto 0.1 X10*3/uL (0.0-0.2); Basophils Percent Auto 0.8 % (0-2); Eosinophils Absolute Auto 0.2 X10*3/uL (0.0-0.4); Eosinophils Percent Auto 2.3 % (0-4); Hematocrit 36.2 % (42.0-52.0); Hemoglobin 13.3 g/dl (14.0-18.0); Imm Gran Abs Auto 0.03 X10*3/uL (0.00-0.03); Imm Gran Pct Auto 0.4 % (0.0-0.4); Lymphocytes Absolute Auto 2.9 X10*3/uL (1.2-4.9); Lymphocytes Percent Auto 37.3 % (20-40); Mean Corpuscular HGB Conc 36.7 g/dl (31.0-36.0); Mean Corpuscular Hemoglobin 33.4 pg (27.0-33.0); Monocytes Absolute Auto 0.8 X10*3/uL (0.1-1.2); Monocytes Percent Auto 10.3 % (2-11); Neutrophils Absolute Auto 3.8 x10*3/uL (2.0-8.3); Neutrophils Percent Auto 48.9 % (45-73); Platelet Count 209 X10*3/uL (160-400); Red Blood Count 3.98 X10*6/uL (4.60-5.80); Red Cell Distribution Width 11.8 % (11.0-16.0); White Blood Count 7.7 X10*3/uL (4.8-10.8)
[2024-08-28 00:10] LABS: Alanine Aminotransferase 29 U/L (0-40); Albumin Level 4.2 g/dL (3.5-5.0); Alkaline Phosphatase 52 U/L (39-117); Anion Gap 14 (12-20); Aspartate Amino Transferase 29 U/L (5-37); Bilirubin Total 0.8 mg/dL (0.0-1.0); Blood Urea Nitrogen 11 mg/dL (9-16); Calcium 9.2 mg/dL (8.4-10.2); Carbon Dioxide 23 mmol/L (22-29); Chloride 95 mmol/L (96-108); Creatinine Clr Calc Pharmacy 91.3; Estimated Glomerular Filt Rate > 60; Glucose Random 112 mg/dL (60-115); Magnesium 1.6 mg/dL (1.6-2.6); Potassium 3.8 mmol/L (3.3-5.1); Sodium 128 mmol/L (135-145); Total Protein 6.4 g/dL (6.5-8.0)
[2024-08-28 00:16] LABS: Troponin-I High Sensitivity 3.5 ng/L (<3.5-35.0)
[2024-08-28] MEDS: Nitroglycerin 2 % Oint 1 GM Packet 0.5 INCH TRANSDERMA (00:18)
[2024-08-28] MEDS: Aspirin Enteric Coated 81 MG TABLET.DR 162 MG PO (00:18)
[2024-08-28 00:20] LABS: INTERNATIONAL NORM RATIO 0.9 (0.9-1.1); Prothrombin Time 10.6 SEC (10.9-12.4)
[2024-08-28 00:23] LABS: Partial Thromboplastin Time 27.5 SEC (26.0-36.8)
[2024-08-28 01:23] VITALS: BP 139/79; PULSE 70; RESP 20; TEMP 36.7; O2SAT 97
--- NOTE | 2024-08-28 01:32 | PC.NURSE ---
pt requesting to leave to go home to care for with dementia. nitro patch removed, Lab drawn prior to D/C pt aware of risks
[2024-08-28 01:33] VITALS: BP 139/79; PULSE 70; RESP 20; TEMP 36.7; O2SAT 97
[2024-08-28 01:59] LABS: Troponin-I High Sensitivity 6.4 ng/L (<3.5-35.0)
== END 2024-08-28 01:34 | disposition left against medical advice (07) ==
PROVIDERS: Emergency Provider Internal Medicine; PCP Nurse Practitioner Family
DX: R07.89 Other chest pain (principal); I25.10 Atherosclerotic heart disease of native coronary artery without angina pectoris; F17.210 Nicotine dependence, cigarettes, uncomplicated; Z79.899 Other long term (current) drug therapy
CPT/HCPCS: 36415; 80053; 83735; 84484; 85025; 85610; 85730; 93005; 99284; 99285

== ENCOUNTER → 2024-08-27 23:13 | Outpatient (BNV) | payer MEDICARE, SELFPAY | PROVIDERS: Emergency Provider Internal Medicine; PCP Nurse Practitioner Family; Visit Provider Internal Medicine Cardiovascular Disease | DX: I49.9 Cardiac arrhythmia, unspecified (principal); I45.10 Unspecified right bundle-branch block | CPT/HCPCS: 93010 ==

== ENCOUNTER 2024-11-01 10:16 | Outpatient (AMB) | payer MEDICARE, SELFPAY ==
--- OUTSIDE RECORDS SUMMARY | 2024-03-28 07:10 | XMS_ITS ---
Author Organization [facility] Address [address] [place] [address] Care Team Providers Care Biomedical Service Engineer Name Role Phone CHINA MITCHELL Primary Care Provider Hector Monson [phone] REASON FOR VISIT Patient presents today for a COLON SCREENING Encounters Encounter Location Date Provider Diagnosis [facility] [address] [facility] [address] [place] [address] 03/28/2024 Hector Leach Plan Of Treatment Next Appt Details Provider Name:Hector Leach , 11/23/2024 10:20:00 AM, [address] [facility], [address], [place], [address], Progress Notes * CHINA DOUGHERTYDOB:1960 ([age] yo M)Acc No.[id number]:03/28/2024 Progress Notes Patient: CHINA CHINCHILLA Provider: Gaurav Leach MD :1960 A ge:63 Y S ex:Male Date:03/28/2024 Address:[address] [place] [address] [place] [facility] Pcp:CHINA MITCHELL Subjective: * Chief Complaints: * [...] 05/29/2023 Generated for Martin soliman/Jon/Kvng on: 0 11/01/2024 10:51 AM EDT
--- NOTE | 2024-11-01 10:23 | MHC.PC.OV ---
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 Required: No Accompanied by: Self / Same As Patient Allergies carvedilol Adverse Reaction (Severe, Verified 11/01/24 10:51) Unknown Medication List - Last Reconciled 11/01/24 by Lc Lewis, [facility]- amlodipine 10 mg PO DAILY aspirin 81 mg PO DAILY atorvastatin 80 mg PO DAILY ezetimibe 10 mg PO DAILY hydrochlorothiazide 12.5 mg PO QAM lisinopril 20 mg PO DAILY ranolazine ER 500 mg PO BID sildenafil 50 mg PO DAILY PRN trazodone 100 mg PO BEDTIME PRN Tobacco use date assessed: 11/01/24 Dental Screening Dental Screen Date: 11/01/24 Did you have a dental visit in the last 12 months?: Yes Did you have a dental problem in the last 6 months where you did not have access to dental care?: No Was dental information given to patient?: Patient has dentist HPI 4M F/U HPI Details Chief Complaint The patient presents for follow-up after a previous emergency room visit for chest pain. History of Present Illness The patient is a 63-year-old male presenting with follow-up for chest pain and cardiovascular health management. In August, the patient visited the emergency room due to chest pain, where a myocardial infarction was ruled out. However, the patient left against medical advice to care for his , who has dementia and Parkinson's disease. The patient denies any shortness of breath or chest discomfort since the ER visit and reports a reduction in cigarette consumption, which he notes has improved his breathing. He is currently on aspirin, a high-dose statin, and ezetimibe, and is scheduled for a cardiology follow-up in two weeks. The patient has a history of ST-Elevation Myocardial Infarction (STEMI) in 2017, for which stents were placed. He is due for a repeat low-dose CT scan in the fall and has been advised not to miss his cardiology appointment. Social History - Family status: Caring for with dementia and Parkinson's disease - Substance use: Reduced cigarette consumption, using nicotine pouches Health Maintenance - Cardiovascular follow-up with cardiology scheduled in two weeks - Repeat low-dose CT scan scheduled for the fall Review of Systems - Cardiovascular: Denies chest pain, denies shortness of breath Physical Exam General: Cooperative, healthy appearing, comfortable, no acute distress and well developed Orientation: Patient oriented x3 Limitations: No limitations Head: Normal to inspection Ears: Hearing grossly normal bilaterally Nose: Normal external nose present Face and sinus: Normal facial exam Eyes: Appearance normal, both eyes and all related structures Neck: Normal visual inspection and Yes full ROM Respiratory: Normal respiratory effort and able to speak in complete sentences. Clear to auscultation bilaterally Cardiovascular: Regular rate and rhythm. Normal S1 and S2 GI: Normal to inspection. Soft to palpation and nontender Skin: No rashes or lesions noted Neuro: Patient oriented x3 Extremities: Normal to inspection Results Plan The patient will continue his current medications, including aspirin, high-dose statin, and ezetimibe, to manage his cardiovascular health. He is advised to follow up with cardiology in two weeks, where further testing such as a stress test and echocardiogram may be conducted. Additionally, he is due for a repeat low-dose CT scan in the fall to monitor his condition. The patient is encouraged to continue reducing cigarette consumption and using nicotine pouches as a smoking cessation aid. He is reminded of the importance of not missing his cardiology appointment and the relevance of upcoming lab tests. Discussion Notes I discussed with the patient the importance of adhering to his medication regimen, including aspirin, high-dose statin, and ezetimibe, to manage his cardiovascular health. We talked about the necessity of attending his cardiology follow-up in two weeks, where additional tests may be performed. I emphasized the significance of the upcoming low-dose CT scan in the fall and the need for continued reduction in cigarette use. The patient was informed about the importance of upcoming lab tests and not missing his cardiology appointment. Patient Instructions - Continue taking aspirin, high-dose statin, and ezetimibe as prescribed. - Attend cardiology follow-up in two weeks for further evaluation. - Schedule and complete a low-dose CT scan in the fall. - Reduce cigarette consumption and use nicotine pouches as needed. - Do not miss any scheduled appointments, including cardiology and lab tests. [facility] Medical History CAD (coronary artery disease) History of ST elevation myocardial infarction (STEMI) (~2017) History of cardiac arrest (~2017) Stented coronary artery (~2017) HTN (hypertension) Hyperlipidemia Impaired fasting glucose Nicotine dependence, cigarettes, uncomplicated History of colon polyps Anxiety Depression Insomnia Surgical History History of colonoscopy History of heart artery stent History of cardiac catheterization History of surgery Brain aneurysm History of vasectomy History of arthroscopy of left knee Family History Father Diverticulitis Acute CVA (cerebrovascular accident) Mother Breast cancer CVD (cardiovascular disease) Stroke Maternal Aunt Graves disease Brother Diverticulitis Heart attack Sister Melanoma Son No problems noted. 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 1. Little interest or pleasure in doing things: nearly every day 2. Feeling down, depressed, or hopeless: not at all 3. Trouble falling or staying asleep, or sleeping too much: nearly every day 4. Feeling tired or having little energy: more than half the days 5. Poor appetite or overeating: not at all 6. Feeling bad about yourself - or that you are a failure or have let yourself or your family down: not at all 7. Trouble concentrating on things, such as reading the newspaper or watching television: not at all 8. Moving or speaking so slowly that other people could have noticed. Or the opposite - being so fidgety or restless that you have been moving around a lot more than usual: not at all 9. Thoughts that you would be better off or of hurting yourself in some way: not at all Total score: 8 Depression Screening Interpretation: Positive Depression Screening Done: Yes 72136 - PHQ-9 Billing: Yes Source: Developed by Drs. Hector Bojorquez, Isabell Ascencio, Shaka Muñiz and colleagues, with an educational emeka from [employer]. Thrive Questionnaire Date Thrive assessed: 11/01/24 I am a: Patient What is your living situation today?: I have a steady place to live Within the past 12 months, did the food you bought not last and you didn't have the money to get more?: Never true Within the past 12 months, did you worry whether your food would run out before you got money to buy more?: Never true Do you have trouble paying for medicines?: No Do you have trouble getting transportation to medical appointments?: No Do you have trouble paying your heating and electricity bill?: No Do you have trouble taking care of your child, family member or friend?: No Do you have trouble with day-to-day activities such as bathing, preparing meals, shopping, managing finances, etc.?: No Are you currently unemployed and looking for a job?: No Are you interested in more education?: No THRIVE Score: 0 ELIZABETH-7 AMB Questionnaire ELIZABETH-7 Date ELIZABETH - 7 assessed: 11/01/24 Feeling nervous, anxious, or on edge: 1 = Several days Not being able to stop or control worryin = Not at all Worrying too much about different things: 1 = Several days Trouble relaxin = Several days Being so restless that it is hard to sit still: 0 = Not at all Becoming easily annoyed or irritable: 0 = Not at all Feeling afraid as if something awful might happen: 0 = Not at all Total ELIZABETH-7 score (0-4 normal; 5-9 mild; 10-14 moderate; 15-21 severe): 3 Source: Developed by Drs. Hector Bojorquez, Isabell Ascencio, Shaka Muñiz and colleagues, with an educational emeka from [employer]. ELIZABETH-7 Assessment Billing ELIZABETH-7 Assessment Tool: ELIZABETH-7 Assessment 96149 Physical exam (Primary Care) Vital Signs: Last Vital Signs Temp 98.5 F 11/01/24 10:24 Pulse 77 11/01/24 10:24 Resp 16 11/01/24 10:24 BP 130/74 11/01/24 10:24 Pulse Ox 99 11/01/24 10:24 Oxygen Delivery Method Room Air 11/01/24 10:24 BMI result Body Mass Index 23.0 Tobacco/Smoking Status: Tobacco use Status Tobacco use date assessed 11/01/24 11/01/24 10:29 Patient Tobacco Use Status Current everyday Tobacco 11/01/24 10:29 PHQ-9: PHQ-9 Score PHQ-9: Total score 8 11/01/24 10:53 Depression Screening Interpretation: Positive Thrive Assessment: Date of Thrive Assessment Date Thrive assessed 11/01/24 11/01/24 10:29 Coding Level of Care Code Est Pt Level 3 (95082) Diagnoses Atherosclerosis I70.90 Essential hypertension I10 Hypertension type: essential hypertension Coronary artery disease involving [place] coronary artery of [place] heart without angina pectoris I25.10 Associated angina: without angina Coronary Disease-Associated Artery/Lesion type: [place] artery [place] vs. transplanted heart: [place] heart Screening PSA (prostate specific antigen) Z12.5 Additional Codes ELIZABETH-7 Assessment Billing - ELIZABETH-7 Assessment Tool: ELIZABETH-7 Assessment 39858 ([id number]) PHQ-9 - 47815 - PHQ-9 Billing: Yes ([id number]) Assessment & Plan Assessment & Plan (1) Atherosclerosis: Code(s): I70.90 - Unspecified atherosclerosis Category: Medical (2) HTN (hypertension): Code(s): I10 - Essential (primary) hypertension Category: Medical Qualifiers: Hypertension type: essential hypertension Qualified Code(s): I10 - Essential (primary) hypertension (3) CAD (coronary artery disease): Comment: (STEMI with cardiac arrest 07/04/16 with 3 JIE to LAD, recurrent discomfort and 2 JIE to RCA) Code(s): I25.10 - Atherosclerotic heart disease of [place] coronary artery without angina pectoris Category: Medical Qualifiers: Associated angina: without angina Coronary Disease-Associated Artery/Lesion type: [place] artery [place] vs. transplanted heart: [place] heart Qualified Code(s): I25.10 - Atherosclerotic heart disease of [place] coronary artery without angina pectoris (4) Screening PSA (prostate specific antigen): Code(s): Z12.5 - Encounter for screening for malignant neoplasm of prostate Category: Medical Plan . Orders: Orders TSH reflex Free T4 Today I10 - Essential (primary) hypertension, I25.10 - Atherosclerotic heart disease of [place] coronary artery without angina pectoris Lipid Panel Today I10 - Essential (primary) hypertension, I25.10 - Atherosclerotic heart disease of [place] coronary artery without angina pectoris Prostate Specific Antigen Scr Today Z12.5 - Encounter for screening for malignant neoplasm of prostate AMB EKG-In Office Today I10 - Essential (primary) hypertension, I25.10 - Atherosclerotic heart disease of [place] coronary artery without angina pectoris Complete Blood Count Auto Diff Today I10 - Essential (primary) hypertension, I25.10 - Atherosclerotic heart disease of [place] coronary artery without angina pectoris Comprehensive [place]. Panel Fast Today I10 - Essential (primary) hypertension, I25.10 - Atherosclerotic heart disease of [place] coronary artery without angina pectoris UA CC w/rflx Micro + Cult Today I10 - Essential (primary) hypertension, I25.10 - Atherosclerotic heart disease of [place] coronary artery without angina pectoris Medications: Changed From trazodone 100 mg PO BEDTIME PRN 90 tabs 0RF sleep To trazodone 200 mg (2 x 100 mg) PO BEDTIME PRN 90 tabs 3RF sleep 30 days
[2024-11-01 10:24] VITALS: BP 130/74; PULSE 77; RESP 16; TEMP 36.9; O2SAT 99; BMI 23.0
--- OUTSIDE RECORDS SUMMARY | 2024-11-01 10:51 | XMS_ITS | Clinical Summary ---
Author Organization [facility] Address [address] [place] [address] Care Team Providers Care Hydrogeologist Name Role Phone Unavailable Primary Care Provider [...] 2023-2 5 season) 2023 Influenza Vaccine (#1) 2024 RSV Immunization Adult Patie nts (1 - 1-dose 75+ series) 11/27/2035 HIB [...] age to complete this topic Meningococcal B Vaccine Aged Out No l onger eligible based on patient's age to complete this topic Pneumococcal Vaccine: Pediat rics (0 to 5 Years) and At-Risk Patients (6 to 49 Years) Aged Out No longer eligible b ased on patient's age to complete this topic RSV Immunization Patients Un shira 20 months Aged Out No longer eligible b ased on patient's age to complete this topic Varicella Vaccines Aged Out No longer eligible based on patient's age to complete this topic
== END 2024-11-01 11:23 | disposition home or self-care (01) ==
LOC: HO.HMCC 10:17
PROVIDERS: PCP Physician Assistant; Visit Provider Nurse Practitioner Family
DX: I70.90 Unspecified atherosclerosis (principal); I10 Essential (primary) hypertension; I25.10 Atherosclerotic heart disease of native coronary artery without angina pectoris; Z12.5 Encounter for screening for malignant neoplasm of prostate

== ENCOUNTER → 2024-11-01 10:16 | Outpatient (BNVA) | payer MEDICARE, SELFPAY | PROVIDERS: PCP Physician Assistant; Visit Provider Nurse Practitioner Family | DX: I70.90 Unspecified atherosclerosis (principal); I10 Essential (primary) hypertension; I25.10 Atherosclerotic heart disease of native coronary artery without angina pectoris | CPT/HCPCS: 96127; 99212 ==

== ENCOUNTER 2024-11-20 08:33 | Outpatient (AMB) | payer MEDICARE, SELFPAY ==
--- OUTSIDE RECORDS SUMMARY | 2024-03-28 07:10 | XMS_ITS ---
Author Organization [facility] Address [address] [place] [address] Care Team Providers Care Civil Drafting Technician Name Role Phone CHINA MITCHELL Primary Care Provider Hector Monson [phone] REASON FOR VISIT Patient presents today for a COLON SCREENING Encounters Encounter Location Date Provider Diagnosis [facility] [address] [place] [facility] [address] [place] [address] 03/28/2024 Hector Leach Plan Of Treatment Next Appt Details Provider Name:Hector Leach , 11/23/2024 10:20:00 AM, [address] [place] [facility], [address], [place], [address], Progress Notes * CHINA DOUGHERTYDOB:1960 ([age] yo M)Acc No.[id number]:03/28/2024 Progress Notes Patient: CHINA CHINCHILLA Provider: Gaurav Leach MD :1960 A ge:63 Y S ex:Male Date:03/28/2024 Address:[address] [place] [address] [place] [address] [id number] Pcp:CHINA MITCHELL Subjective: * Chief Complaints: * [...] Pending * Provider: Gaurav Leach MD Date: 1 05/29/2023 Generated for Martin soliman/Jon/Kvng on: 0 11/20/2024 08:53 AM EDT
--- NOTE | 2024-11-20 08:34 | A.OFFVIS_ITS ---
Vital Signs 11/20/24 08:36 Height 5 ft 5 in Weight 138 lb 14.259 oz BMI 23.1 BP 126/74 Blood Pressure Location Lt brachial Position Sitting Pulse 70 Intake Visit Reasons: 1 yr f/up Intake Note: 1 year follow-up has ekg 2 weeks ago c/o jose ge under a lot of stress [employer] Required: No Allergies carvedilol Adverse Reaction (Severe, Verified 11/01/24 10:51) Unknown Medication List - Last Reconciled 11/20/24 by Todd Negro MD amlodipine 10 mg PO DAILY aspirin 81 mg PO DAILY atorvastatin 80 mg PO DAILY ezetimibe 10 mg PO DAILY hydrochlorothiazide 12.5 mg PO QAM lisinopril 20 mg PO DAILY sildenafil 50 mg PO DAILY PRN trazodone 200 mg (2 x 100 mg) PO BEDTIME PRN 30 days HPI Comments Details: Lc comes for follow-up. He has multiple personal issues and he says very stress with personal life currently including his job as well. He said he has too many things on his plate. He complains of symptoms of exertional fatigue as well as exertional shortness of breath. He was in August in the hospital with chest pain. Since then he has not been exercising much does not have any sig nificant exertional chest pain. Unfortunately continues smoke but currently he is down to 10 cigarettes a day. He takes all his medications. Denies any orthopnea, PND, leg edema. Denies any lightheadedness, syncope. Denies any symptoms of claudication. [facility] Medical History CAD (coronary artery disease) History of ST elevation myocardial infarction (STEMI) (~2017) History of cardiac arrest (~2017) Stented coronary artery (~2017) HTN (hypertension) Hyperlipidemia Impaired fasting glucose Nicotine dependence, cigarettes, uncomplicated History of colon polyps Anxiety Depression Insomnia Surgical History History of colonoscopy History of heart artery stent History of cardiac catheterization History of surgery Brain aneurysm History of vasectomy History of arthroscopy of left knee Family History Father Diverticulitis Acute CVA (cerebrovascular accident) Mother Breast cancer CVD (cardiovascular disease) Stroke Maternal Aunt Graves disease Brother Diverticulitis Heart attack Sister Melanoma Son No problems noted. 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 Cognitive needs: No Hearing needs: Yes Vision needs: Yes Review of Systems Const Denies chills, Denies fatigue, Denies fever(s), Denies frequent falls, Denies weakness, Denies weight gain and Denies weight loss ENT Denies dizziness Card Denies chest pain, Denies leg edema, Denies lightheadedness, Denies palpitations, Denies dyspnea, Denies dyspnea on exertion, Denies orthopnea and Denies other (loss of consciousness) Resp Denies cough, Denies dyspnea and Denies dyspnea on exertion GI Denies hematochezia and Denies change in stool character Musc Denies abnormal gait, Denies muscle weakness, Denies numbness, Denies radiating pain into limb and Denies tingling Neuro Denies abnormal gait, Denies dizziness, Denies frequent falls, Denies numbness, Denies tingling and Denies weakness Endo Denies fatigue and Denies palpitations Physical Exam Vital Signs: Last Vital Signs Pulse 70 11/20/24 08:36 BP 126/74 11/20/24 08:36 BMI result Body Mass Index 23.1 Const General: cooperative, comfortable and no acute distress Orientation/consciousness: patient oriented x3 Neck Neck: Yes normal visual inspection and Yes no JVD Resp Effort & Inspection: normal respiratory effort Auscultation: clear to auscultation bilaterally, no crackles, no rales, no rhonchi and wheezes scattered wheezes Cardio Jugular venous distension: no JVD Rate: regular rate Rhythm: regular rhythm Heart sounds: S1 normal heart sound present, S2 normal heart sound present, no gallops, no murmurs and no rubs Neuro General: patient oriented x3 Extrem General: Yes normal to inspection Psych Appearance: grossly normal Mental Status: mental status grossly normal Speech and movement: Normal speech and movement present Assessment & Plan Assessment & Plan (1) CAD (coronary artery disease): Comment: (STEMI with cardiac arrest 07/04/16 with 3 JIE to LAD, recurrent discomfort and 2 JIE to RCA) Code(s): I25.10 - Atherosclerotic heart disease of [place] coronary artery without angina pectoris Category: Medical Qualifiers: Coronary Disease-Associated Artery/Lesion type: [place] artery [place] vs. transplanted heart: [place] heart Associated angina: without angina Qualified Code(s): I25.10 - Atherosclerotic heart disease of [place] coronary artery without angina pectoris Plan: Patient with prior CAD with drug-eluting stent to both LAD and RCA, last stenting done to RCA in 2019. Currently having recurrent symptoms chest pain with uncontrolled risk factors of smoking. He takes all his medications. Blood pressure is currently well optimized. See below. He is currently on high- intensity statin along with ezetimibe therapy. Advised lipid panel in near future. Target goal LDL less than 55 mg/dL. He he is complaining also symptoms of fatigue. Will obtain echocardiogram to assess for worsening LV ejection fraction. Also given his chest pain syndrome and shortness of breath and continue risk factors will obtain exercise myocardial perfusion imaging to rule out any progressive coronary artery disease. Will also obtain carotid duplex events prior carotid disease to see any progression carotid disease. Smoking cessation was discussed. He said he is trying intensely. Continue other therapy. (2) HTN (hypertension): Code(s): I10 - Essential (primary) hypertension Category: Medical Qualifiers: Hypertension type: essential hypertension Qualified Code(s): I10 - Essential (primary) hypertension Plan: Hypertension which is currently well optimized. Importance of good blood pressure control was discussed. Target goal blood pressure less than 130/84. Complete smoking cessation. Alcohol abstinence was discussed as well. Low-salt diet was discussed. Advised to monitor blood pressure at home maintain a log. Will follow up in the clinic in 2 months time after testing. Thank you for allowing me to partake in his care Orders: Orders CA stress test Today I25.10 - Atherosclerotic heart disease of [place] coronary artery without angina pectoris, R07.9 - Chest pain, unspecified, Z95.5 - Presence of coronary angioplasty implant and graft TX cardiolite stress test 2 Weeks R07.9 - Chest pain, unspecified US carotid duplex BI 1 Month I65.22 - Occlusion and stenosis of left carotid artery CA echo transthoracic complete 1 Month I65.22 - Occlusion and stenosis of left carotid artery Lipid Panel Today I25.10 - Atherosclerotic heart disease of [place] coronary artery without angina pectoris Coding Level of Care Code Est Pt Level 4 (82769) Complex EM visit Add On G2211 Diagnoses Coronary artery disease involving [place] coronary artery of [place] heart without angina pectoris I25.10 Coronary Disease-Associated Artery/Lesion type: [place] artery [place] vs. transplanted heart: [place] heart Associated angina: without angina Essential hypertension I10 Hypertension type: essential hypertension
[2024-11-20 08:36] VITALS: BP 126/74; PULSE 70; BMI 23.1
--- OUTSIDE RECORDS SUMMARY | 2024-11-20 08:54 | XMS_ITS | Clinical Summary ---
Author Organization [facility] it Address [address] [place] [address] Care Team Providers Care Collar Shaper Operator Name Role Phone Unavailable Primary Care [...] Panel) 11/16/2023 Colorectal Cancer Screening: Colonoscopy 11/16/2023 HIV Screening 11/16/2023 Hepatitis C Screening 11/16/2023 Social Influencers of Health Screening 11/16/2023 COVID-19 Vaccine ( - 2023-2 5 season) 2023 Depression Screening 04/19/2024 Influenza Vaccine (#1) 2024 RSV Immunization Adult [...]
--- OUTSIDE RECORDS SUMMARY | 2024-11-20 08:54 | XMS_ITS | Clinical Summary ---
Author Organization [facility] Address [address] [place] [address] Care Team Providers Care Film Reader Name Role Phone None, Provider Primary Care Provider Unavailabl e Social History Tobacco Use Types Packs/Day Years Used Date Smoking Tobacco: Never Assessed Sex and Gender Information Value Date Recorded Sex Assigned at Not on file Legal Sex Male 18:35 EST Gender Identity Not on file Sexual Orientation Not on file Plan of Treatment Health Maintenance Due Date Last Done Comments Hepatitis C Screen 1960 COVID-19 Vaccine ( season) 2023 RSV Immunization ( o r 60+ Years) (1 - 1-dose 75+ series) 11/27/2035 Care Teams Film Reader Relationship Specialty Start Date End Date None, Provider PCP - General 03/01/15
== END 2024-11-20 09:01 | disposition home or self-care (01) ==
LOC: HO.HCS 08:33
PROVIDERS: PCP Nurse Practitioner Family; Visit Provider Internal Medicine Cardiovascular Disease
DX: I25.10 Atherosclerotic heart disease of native coronary artery without angina pectoris (principal); I10 Essential (primary) hypertension
CPT/HCPCS: 99214; G2211

== ENCOUNTER → 2024-11-20 08:33 | Outpatient (BNVA) | payer MEDICARE, SELFPAY | PROVIDERS: PCP Nurse Practitioner Family; Visit Provider Internal Medicine Cardiovascular Disease | DX: I25.10 Atherosclerotic heart disease of native coronary artery without angina pectoris (principal); I10 Essential (primary) hypertension | CPT/HCPCS: 99212 ==

== ENCOUNTER → 2024-12-22 14:04 | Outpatient (REF) | payer MEDICARE, SELFPAY ==
--- OUTSIDE RECORDS SUMMARY | 2024-03-28 07:10 | XMS_ITS ---
Author Organization [facility] Address [address] [place] [address] Care Team Providers Care Stone Cleaner Name Role Phone CHINA MITCHELL Primary Care Provider Hector Monson [phone] REASON FOR VISIT Patient presents today for a COLON SCREENING Encounters Encounter Location Date Provider [facility] [address] [facility] [address] [place] [phone] 03/28/2024 Hector Leach Plan Of Treatment Next Appt Details Provider Name:Hector Leach , 03/12/2025 07:30:00 AM, [address] [place] [address] , [place], [place], [phone], Progress Notes * CHINA DOUGHERTYDOB:1960 ([age] yo M)Acc No.[id number]:03/28/2024 Progress Notes Patient: CHINA CHINCHILLA Provider: Gaurav Leach MD :1960 A ge:63 Y S ex:Male Date:03/28/2024 Address:[address] [place], [place] [id number] Pcp:CHINA MITCHELL Subjective: * Chief Complaints: * [...] 05/29/2023 Generated for Martin soliman/Jon/Kvng on: 0 12/22/2024 02:35 PM EDT
--- OUTSIDE RECORDS SUMMARY | 2024-07-14 10:40 | XMS_ITS ---
Author Organization [facility] Address [address] [facility] [address] [place] [address] Care Team Providers Care Organizational Development Specialist Name Role Phone CHINA MITCHELL Primary Care Provider Hector Monson [phone] REASON FOR VISIT Patient presents today for a discuss colonoscopy Encounters Encounter Location Date Provider Diagnosis [facility] [address] [facility] [address] [place] [address] 07/14/2024 Hector Leach Plan Of Treatment Next Appt Details Provider Name:Hector Leach , 03/12/2025 07:30:00 AM, [address] [place] [address] , [place], [place], [phone], Progress Notes * CHINA DOUGHERTYDOB:1960 ([age] yo M)Acc No.[id number]:07/14/2024 Progress Notes Patient: CHINA CHINCHILLA Provider: Gaurav Leach MD :1960 A ge:63 Y S ex:Male Date:07/14/2024 Address:[address] [place], [place] [id number] Pcp:CHINA MITCHELL Subjective: * Chief Complaints: * [...] MD Date: 0 07/14/2024 Generated for Martin soliman/Jon/Kvng on: 0 12/22/2024 02:35 PM EDT
--- NOTE | 2024-12-22 14:07 | CA_ITS ---
Transthoracic Echocardiogram Patient (Last, First, Middle): Lc Payan R Gender: M Date of : 1960 Age: 64 Procedure Date: 12/22/2024 Procedure Type: Transthoracic Echocardiogram Location: OP Height: 165.1 cm Weight: 68.04 kg BSA: 1.75 m2 Heart Rate: 54 bpm BP: 126 / 74 mmHg Lawyer Probate: SB Referring MD: Todd Negro MD Symptoms: I65.22 - Occlusion and stenosis of left carotid artery Study Quality: Adequate ECG Rhythm: Bradycardia Conclusions: - Normal left ventricular cavity size. The left ventricular systolic function is borderline reduced. The visually estimated ejection fraction is between 45-50%. - The apex, apical inferior, apical septum, and mid anteroseptal segments are akinetic. - Small apical thrombus present. Findings Procedure Information Contrast agent, definity, is being given per protocol without apparent complications. Left Ventricle Normal left ventricular cavity size. The left ventricular systolic function is borderline reduced. The visually estimated ejection fraction is between 45-50%. Abnormal diastolic function is noted. Spectral Doppler is indicative of a pseudonormal filling pattern. E/E prime ratio is between 8 and 15 consistent with indeterminate filling pressures. Small apical thrombus present. Wall Motion Rest Echo Findings The apex, apical inferior, apical septum, and mid anteroseptal segments are akinetic. Right Ventricle Mildly increased right ventricular cavity size. There is normal right ventricular systolic function. Atria The left atrium is normal in size. The right atrium is likely dilated. Aortic Valve Normal aortic valve structure and function. There is no aortic valve stenosis. There is no aortic valve regurgitation. Mitral Valve Normal mitral valve structure and function. There is trace mitral valve regurgitation. There is no mitral valve stenosis. Pulmonic Valve The pulmonic valve is normal. There is trace pulmonic valve regurgitation. Tricuspid Valve Normal tricuspid valve structure. There is trace tricuspid valve regurgitation. Tricuspid regurgitation envelope is inadequate for calculation of right ventricular systolic pressure. Normal right atrial pressure. Great Vessels All visible segments of the aorta are normal in size. The visualized portions of the pulmonary artery and branches are normal. Venous The inferior vena cava is normal in size and collapses greater than 50% with inspiration. Pericardium/Pleural There is no evidence of pericardial effusion. Prior Study Comparison Changes noted compared to prior study dated: 12/23/2023. EF 45 to 50%. Small apical thrombus present. Measurements 2D Linear Measurements IVSd: 1.11 0.6-0.9/0.6-1.0 cm LVIDd: 4.29 3.9-5.3/4.2-5.9 cm LVIDd Index: 2.45 2.4-3.2/2.2-3.1 cm/m2 LVIDs: 3.01 2.0-3.6 cm LVPWd: 0.72 0.7-1.1 cm LA Diam: 3.50 2.7-3.8/3.0-4.0 cm LAIDs Index: 2.00 1.5-2.3 cm/m2 LV Mass: 156.28 67-162/88-224 g LV Mass Index: 89.30 43-95/49-115 g/m2 LVOT Diam: 2.20 3.0+(-)1.3 cm 2D Systolic Function EF 4C: 48.60 >55% EF 2C: 46.60 >55% EF BiP: 50.00 >55% Mitral Valve MV Pk E: 0.86 MV PK A: 0.57 MV Decel Time: 280.00 E/A: 1.50 E'Lateral: 7.07 E'Medial: 6.20 E/E' Med: 13.90 E/E' Lat: 12.20 PHT: 82.00 MVA PHT: 2.68 Decel [place]: 3.08 Aortic Valve AoV Pk Singh: 1.24 AoV Pk Grad: 6.00 LUCERO: 4.00 LVOT LVOT Pk Singh: 1.46 LVOT Mn Singh: 0.86 LVOT VTI: 0.29 LVOT Pk Grad: 9.00 LVOT Mn Grad: 4.00 LVOT Diam: 2.20 LVOT Area: 3.80 Diastolic Function MV Pk E: 0.86 MV Pk A: 0.57 E/A: 1.50 E'Medial: 6.20 E/E' Med: 13.90 E' Laterial: 7.07 E/E' Lat: 12.20 Right Ventricle TAPSE (mm): 23.00 TVS' Singh: 13.10 Tricuspid Valve RA Press: 3.00 Great Vessels Aorta Sinus of Valsalva: 3.50 2.0-3.5 cm Ao Asc: 3.20 2.1-3.4 cm Pulmonary Veins Pulm Vein S/D 0.70 Pulmonary Valve PV Pk Singh: 0.73 Peak PV Grad: 2.00 Updated in Other Vendor System with Status of Final Caden Ramirez MD electronically signed on 12/23/2024 1:21:30 PM with status of Final
--- OUTSIDE RECORDS SUMMARY | 2024-12-22 14:37 | XMS_ITS | Clinical Summary ---
Author Organization [facility] Address [address] [place] [address] Care Team Providers Care Event Crew Technician Name Role Phone None, Provider TENT FINISHER Primary Care Provider Unavaila ble Social History Tobacco Use Types Packs/Day Years Used Date Smoking Tobacco: Never Assessed Sex and Gender Information Value Date Recorded Sex Assigned at Not on file Legal Sex Male 18:35 EST Gender Identity Not on file Sexual Orientation Not on file Plan of Treatment Health Maintenance Due Date Last Done Comments Hepatitis C Screen 1960 COVID-19 Vaccine (2023- season) 2023 RSV Immunization ( o r 60+ Years) (1 - 1-dose 75+ series) 11/27/2035 Care Teams Event Crew Technician Relationship Specialty Start Date End Date None, Provider, TENT FINISHER PCP - General 03/01/15
--- OUTSIDE RECORDS SUMMARY | 2024-12-22 14:37 | XMS_ITS | Clinical Summary ---
Author Organization [facility] Address [address] [place] [address] Care Team Providers Care Application Support Manager Name Role Phone Unavailable Primary Care Provider [...]
--- OUTSIDE RECORDS SUMMARY | 2024-12-22 14:37 | XMS_ITS | Patient Health Record ---
Author Organization [facility] Address [address] [place] [address] Care Team Providers Care Derrick Boat Leverman Name Role Phone CHINA MITCHELL Primary Care Provider Hector Monson [phone] Allergies No Known Allergies Reason For Referral No Information Medications Medication SIG (Take, Route, Frequency, Duration) Notes Start Date End Date Status Ranolazine ER 500 MG TAKE 1 TABLET ORALL Y 2 TIMES A DAY Oral for 90 Days Active Aspirin Adult Low Dose 81 MG 1 tablet Or ally Once a day for 30 day(s) Active amLODIPine Besylate 10 MG TAKE 1 TABLET BY MOUTH EVERY DAY Oral for 90 Days Active Prazosin HCl 1 MG Oral for 30 Days Active Atorvastatin Calcium 80 MG Oral for 90 Days Active Lisinopril 20 MG TAKE 1 TABLET BY ROSALINA TH EVERY DAY Oral for 90 Days Active hydroCHLOROthiazide 12.5 MG Oral for 90 Active Lisinopril 20 MG TAKE 1 TABLET BY ROSALINA TH EVERY DAY Oral for 90 Days Active amLODIPine Besylate 10 MG Oral for 90 Active Ranolazine ER 500 MG TAKE 1 TABLET ORALL Y 2 TIMES A DAY Oral for 90 Days Active Ezetimibe 10 MG TAKE 1 TABLET ( 10MG ) BY MOUTH DAILY. Oral for 90 Active traZODone HCl 100 MG TAKE 2 TABLETS BY M OUTH AT BEDTIME NEEDED FOR SLEEP FOR 30 DAYS Oral for 30 Days Active Ranolazine ER 500 MG TAKE 1 TAB BY MOUTH TWICE A DAY FOR 90 DAYS Oral for 90 Active Prazosin HCl 1 MG Oral for 30 Days Active traZODone HCl 50 MG TAKE 2 TABLETS BY MO UTH AT BEDTIME FOR 90 DAYS Oral for 90 Active Ezetimibe 10 MG TAKE 1 TABLET BY ROSALINA TH ONCE DAILY Oral for 90 Days Active Atorvastatin Calcium 80 MG Oral for 90 Active hydroCHLOROthiazide 12.5 MG TAKE 1 CAPSU LE BY MOUTH EVERY MORNING Oral for 90 Days Active Omeprazole 20 MG TAKE 1 TABLET ORALLY EVERY MORNING 30 DAY(S) for 90 Active amLODIPine Besylate 10 MG TAKE 1 TABLET BY MOUTH EVERY DAY Oral for 90 Days Active Lisinopril 20 MG Oral for 90 A ctive Atorvastatin Calcium 80 MG Oral for 90 Days Active Ezetimibe 10 MG TAKE 1 TABLET BY ROSALINA TH ONCE DAILY Oral for 90 Days Active Immunizations Vaccine Route Administration Date Status Comme nts Influenza Unknown 11/23/2024 Refused Social History Alcohol Screen Question Answer Notes Did you [...] Never (0 point) Points 1 Interpretation Negative Section Notes: Smoker; drinks 6 beers QD Smoker 2 ppd; heavy EtOH in the past but now just occ....goes to AA Smoker 2 ppd; heavy EtOH in the past but now just occ....goes to AA Problems Problem Type SNOMED Code ICD Code Onset Dates Problem Status W/U Status Risk Notes Problem Colon cancer screening (224105899) Colon cancer screening (Z12.11) Active confirmed Problem Dysphagia (58734322) Dysphagia (R13.10) Active confirmed Problem Preprocedural examination (840314875440817 ) Preprocedural examination (Z01.818) Active confirmed Problem Long-term current use of aspirin (571177957016784 ) Aspirin long-term use (Z79.82) Active confirmed Problem Gastritis (5207215) Gastritis (K29.70) Active confirmed Problem 13482807 Pharyngoesophage al dysphagia (R13.14) Active confirmed Problem 69620733 Hyponatremia (E87.1) Active confirmed Vital Signs Temperature 96.8 degrees Fahrenheit 11/23/2024 Blood pressure diastolic 01 mm Hg 11/23/2024 Height 66.5 in 11/23/2024 Blood pressure systolic 001 mm Hg 11/23/2024 Weight 138.6 lbs 11/23/2024 BMI 22.03 kg/m2 11/23/2024 Procedures Procedure Date Ordered Date Performed Result Body Sit e COLONOSCOPY 11/23/2024 N/A Encounters Encounter Location Date Provider Diagnosis [facility] [address] [place] [address] 11/23/2024 Hector Leach Colon cancer screeni ng Z12.11 ; Aspirin long-term use Z79.82 and Preprocedural examination Z01.818 [facility] [address] [place] [address] 07/14/2024 Hector Leach Assessments Encounter Date Diagnosis (ICD Code) Assessment Notes Treatment Notes Treatment Clinical Notes Section Notes 11/23/2024 Colon cancer screening (ICD-10 - Z12.11) Overall, [place] appears well and is not having any new or worrisome GI complaints. His previous swallowing symptoms seem to have resolved and the workup in 2022 was negative. I do not think he needs any further assessment in that regard. I did recommend a colonoscopy for further screening given his last exam being done over 10 years ago. We did review the rationale for this in regard to colon cancer prevention. Full consent has been obtained for this, including risks of bleeding and perforation. He was given the below instructions regarding adjustment of his medications for the procedure. The procedure will be done with monitored anesthesia care. We will obtain a clearance letter from Dr. Negro given his report of some upcoming cardiology testing in December. [place] was comfortable with this plan. Thank you again for allowing me to participate in [place]'s care. I shall continue to keep you advised of his progress. 11/23/2024 Aspirin long-term use (ICD-10 - Z79.82) Overall, [place] appears well and is not having any new or worrisome GI complaints. His previous swallowing symptoms seem to have resolved and the workup in 2022 was negative. I do not think he needs any further assessment in that regard. I did recommend a colonoscopy for further screening given his last exam being done over 10 years ago. We did review the rationale for this in regard to colon cancer prevention. Full consent has been obtained for this, including risks of bleeding and perforation. He was given the below instructions regarding adjustment of his medications for the procedure. The procedure will be done with monitored anesthesia care. We will obtain a clearance letter from Dr. Negro given his report of some upcoming cardiology testing in December. [place] was comfortable with this plan. Thank you again for allowing me to participate in [place]'s care. I shall continue to keep you advised of his progress. 11/23/2024 Preprocedural examination (ICD-10 - Z01.818) Overall, [place] appears well and is not having any new or worrisome GI complaints. His previous swallowing symptoms seem to have resolved and the workup in 2022 was negative. I do not think he needs any further assessment in that regard. I did recommend a colonoscopy for further screening given his last exam being done over 10 years ago. We did review the rationale for this in regard to colon cancer prevention. Full consent has been obtained for this, including risks of bleeding and perforation. He was given the below instructions regarding adjustment of his medications for the procedure. The procedure will be done with monitored anesthesia care. We will obtain a clearance letter from Dr. Negro given his report of some upcoming cardiology testing in December. [place] was comfortable with this plan. Thank you again for allowing me to participate in [place]'s care. I shall continue to keep you advised of his progress. Plan Of Treatment Pending Test Test Name Order Date COLONOSCOPY 11/23/2024 CHEM 7 PROFILE 12/22/2022 Future Test Test Name Order Date COLONOSCOPY 12/17/2011 UPPER GI ENDOSCOPY BALLOOON DILATION OF ESOPH 12/22/2022 Next Appt Details Provider Name:Hector Leach , 03/12/2025 07:30:00 AM, [address] [place] [address] , [place], [place], [phone], Insurance Providers Payer Name Payer Address Payer Phone Subscriber Number Group Number Insured Name Patient Relationship to Insured Coverage Start Date Coverage End Date MEDICARE OF [place] [address] [place] [phone] [id number] CHINA DOUGHERTY Self - patient is the insured MEDEX ATTN CLAIMS [address] [place] [address] [id number] CHINA DOUGHERTY Self - patient is the insured Medical (General) History Medical History History ICD Code Denies DM,CVA,Lung disease,renal disease Torn biceps but no surgery [place] 2016 with 3 stents placed in 2016 and 2 in approx. 2018- sees Dr Negro---He reports that he will be undergoing some cardiology testing in December 2024 TIA Hypertension Colonoscopy 2012 with a hyperplastic kim yp Hyperlipidemia Hyponatremia on hydrochlorothiazide Negative screening CT scan of the chest in June 2022 EGD in 2022 neg. for esophagitis or Rutledge ett's Surgical History Surgery Date(Month/Year) Vasectomy Removal of basal cell carncinoma Knee surgery 25 years ago
== END ==
LOC: HO.CARD 14:04
PROVIDERS: PCP Nurse Practitioner Family; Visit Provider Internal Medicine Cardiovascular Disease
DX: I65.22 Occlusion and stenosis of left carotid artery (principal)
CPT/HCPCS: 93306; Q9957

== ENCOUNTER → 2024-12-22 14:07 | Outpatient (BNV) | payer MEDICARE, SELFPAY | PROVIDERS: PCP Nurse Practitioner Family; Visit Provider Internal Medicine Cardiovascular Disease | DX: I51.3 Intracardiac thrombosis, not elsewhere classified (principal); I65.22 Occlusion and stenosis of left carotid artery | CPT/HCPCS: 93306 ==

== ENCOUNTER → 2025-01-04 08:14 | Outpatient (REF) | payer MEDICARE, SELFPAY ==
--- OUTSIDE RECORDS SUMMARY | 2024-03-28 07:10 | XMS_ITS ---
Author Organization [facility] Address [address] [place] [phone] Care Team Providers Care Drum Carrier Name Role Phone CHINA MITCHELL Primary Care Provider Hector Monson [phone] REASON FOR VISIT Patient presents today for a COLON SCREENING Encounters Encounter Location Date Provider Diagnosis [facility] [address] [facility] [address] [place] [phone] 03/28/2024 Hector Leach Plan Of Treatment Next Appt Details Provider Name:Hector Leach , 03/12/2025 07:30:00 AM, [address] [place] [address] , [place], [place], [phone], Progress Notes * CHINA DOUGHERTYDOB:1960 ([age] yo M)Acc No.[id number]:03/28/2024 Progress Notes Patient: CHINA CHINCHILLA Provider: Gaurav Leach MD :1960 A ge:63 Y S ex:Male Date:03/28/2024 Address:[address] [place], [place] [id number] Pcp:CHINA MITCHELL Subjective: * Chief Complaints: * 1 . Patient presents today for a COLON SCREENING. * Medical History: Objective: * Vitals: Assessment: Plan: * Treatment: * * The named appointment provid er may or may not be the originator of this progress note, and it is not deemed complete until electronically signed by the appointment provider. Sign off status: Pending * Provider: Gaurav Leach MD Date: 05/29/2023 Generated for Martin soliman/Jon/Kvng on: 0 01/04/2025 09:03 AM EDT
--- OUTSIDE RECORDS SUMMARY | 2024-07-14 10:40 | XMS_ITS ---
Author Organization [facility] Address [address] [facility] [address] [place] [address] Care Team Providers Care Milker Machine Name Role Phone CHINA MITCHELL Primary Care Provider Hector Monson [phone] REASON FOR VISIT Patient presents today for a discuss colonoscopy Encounters Encounter Location Date Provider Diagnosis [facility] [address] [facility] [address] [place] [address] 07/14/2024 Hector Leach Plan Of Treatment Next Appt Details Provider Name:Hector Leach , 03/12/2025 07:30:00 AM, [address] [place] [address] , [place], [place], [phone], Progress Notes * CHINA DOUGHERTYDOB:1960 ([age] yo M)Acc No.[id number]:07/14/2024 Progress Notes Patient: CHINA CHINCHILLA Provider: Gaurav Leach MD :1960 A ge:63 Y S ex:Male Date:07/14/2024 Address:[address] [place], [place] [address] Pcp:CHINA MITCHELL Subjective: * Chief Complaints: * [...] 07/14/2024 Generated for Martin soliman/Jon/Kvng on: 0 01/04/2025 09:03 AM EDT
--- NOTE | ~2025-01-04 | NM_ITS ---
EXERCISE MYOCARDIAL PERFUSION STUDY INDICATION: Coronary artery disease TECHNIQUE: The patient was brought in for an exercise perfusion study on 01/04/2025. Patient performed exercise as per Willard protocol and was injected 25 mCi of sestamibi once target heart rate was achieved. Images were obtained using the SPECT gamma camera interlaced with the gating device. Images were obtained in supine position. Resting perfusion study was performed on 01/05/2025. Patient was administered 25 mCi of sestamibi intravenously at rest. Images were then obtained in supine position. Total DLP 63 mGy-cm. Images were processed with the software and compared side to side in short axis, horizontal long axis and vertical long axis views. FINDINGS: Raw aquisition reviewed. The stress perfusion study showed decreased tracer uptake in the basal inferior septum, distal inferolateral wall,apex. No major change with CT attenuation correction. The gated study shows low normal LV systolic function with calculated LVEF of 53%. LV cavity is normal in size. The gated study shows reduced contractility at the basal inferior septum, apex and apical inferolateral wall. Resting study shows diminished tracer uptake in the basal inferior septum, apical part of inferolateral wall and apex. Images with CT attenuation correction. Gating at rest reveals ejection fraction at 60%. Reduced contractility at the apex, apical part of inferolateral wall and basal inferior septum. The findings are consistent with fixed appearing defects at the apex, apical part of inferolateral wall, basal inferior septum. NM/NM cardiolite stress test IMPRESSION: 1. Myocardial perfusion imaging study shows prior infarct at the apex, apical part of inferolateral wall, basal inferior septum. No clear ischemia. 2. Gated LVEF is 53% during stress and 60% during rest. 3. Transient ischemic dilatation not present. EKG component of the test reported separately. Electronically signed by: Nacho Jansen MD 01/07/2025 12:33 PM EDT
--- NOTE | 2025-01-04 08:16 | CA_ITS ---
Acquisition Time: 2025-01-04 08:23:52 Total Exercise Time: 00:08:15 Test Indications: CP Medications: SEE H&P Protocol: DOMINICK Max HR: 144 BPM 92% of Pred: 156 BPM Max BP: 180/84 mmHG Max Work Load: 10.1 METS Exercise stress test with exercise 8 mins 15 secs of Dominick Protocol, achieving 93% MPHR, with reports of 8/10 mid chest tightness and SOB, with isolated PVCs, with normotensive response to exercise. Without any EKG changes meeting criteria for ischemia. In recovery, pt's chest tightness resolved and breathing slowly improving to baseline. Nuclear images pending. Test reviewed with Dr. Jansen. Referred By: Todd Negro Electronically Signed By: Gorge Wilkins
--- OUTSIDE RECORDS SUMMARY | 2025-01-04 09:03 | XMS_ITS | Clinical Summary ---
Author Organization [facility] Address [address] [place] [address] Care Team Providers Care Biometrics Analyst Name Role Phone Unavailable Primary Care Provider [...] 11/16/2023 Social Influencers of Health Screening 11/16/2023 Depression Screening 04/19/2024 COVID-19 Vaccine (1 - 2023-2 5 season) 2024 Influenza Vaccine (#1) 2024 RSV Immunization Adult [...]
--- OUTSIDE RECORDS SUMMARY | 2025-01-04 09:03 | XMS_ITS | Clinical Summary ---
Author Organization [facility] Address [address] [place] [address] Care Team Providers Care Paleology Professor Name Role Phone None, Provider SPARK TESTER Primary Care Provider Unavaila ble Social History [...] - 1-dose 75+ series) 11/27/2035 Care Teams Paleology Professor Relationship Specialty Start Date End Date None, Provider, SPARK TESTER PCP - General 03/01/15
--- OUTSIDE RECORDS SUMMARY | 2025-01-04 09:04 | XMS_ITS | Patient Health Record ---
Author Organization [facility] Address [address] [place] [address] Care Team Providers Care Charter Coordinator Name Role Phone CHINA MITCHELL Primary Care Provider Hector Monson [phone] Allergies No Known Allergies Reason For Referral [...] Status Risk Notes Problem Colon cancer screening (955522785) Colon cancer screening (Z12.11) Active confirmed Problem Dysphagia (22732685) Dysphagia (R13.10) Active confirmed Problem Preprocedural examination (807922803154192 ) Preprocedural examination (Z01.818) Active confirmed Problem Long-term current use of aspirin (749883277284654 ) Aspirin long-term use (Z79.82) Active confirmed Problem Gastritis (8418969) Gastritis (K29.70) Active confirmed Problem 12843536 Pharyngoesophage al dysphagia (R13.14) Active confirmed Problem 31277239 Hyponatremia (E87.1) Active confirmed Vital Signs Temperature 96.8 degrees Fahrenheit 11/23/2024 Blood pressure diastolic 01 mm Hg 11/23/2024 Height 66.5 in 11/23/2024 Blood pressure systolic 001 mm Hg 11/23/2024 Weight 138.6 lbs 11/23/2024 BMI 22.03 kg/m2 11/23/2024 Procedures Procedure Date Ordered Date Performed Result Body Sit e COLONOSCOPY 11/23/2024 N/A Encounters Encounter Location Date Provider Diagnosis [facility] [address] [place] [address] 11/23/2024 Hector Leach Colon cancer screeni ng Z12.11 ; Aspirin long-term use Z79.82 and Preprocedural examination Z01.818 [facility] [address] [place] [address] 12/27/2024 Hector Leach [facility] [address] [place] [address] 07/14/2024 Hector Leach Assessments Encounter Date Diagnosis [...] Provider Name:Hector Leach , 03/12/2025 07:30:00 AM, [address] [place] [address] , [place], [place], [phone], Insurance Providers Payer Name Payer Address Payer Phone Subscriber Number Group Number Insured Name Patient Relationship to Insured Coverage Start Date Coverage End Date MEDICARE OF [place] [address] [facility] [place] [address] [id number] CHINA DOUGHERTY Self - patient is the insured MEDEX ATTN CLAIMS [address] [place] [address] [id number] CHINA DOUGHERTY Self - patient is the insured Medical (General) History Medical History History ICD Code Denies DM,CVA,Lung disease,renal disease Torn biceps but no surgery [place] 2015 with 3 stents placed in 2016 and [...]
== END ==
LOC: HO.CARD 08:14
PROVIDERS: PCP Nurse Practitioner Family; Visit Provider Internal Medicine Cardiovascular Disease
DX: I25.10 Atherosclerotic heart disease of native coronary artery without angina pectoris (principal); R07.9 Chest pain, unspecified; Z95.5 Presence of coronary angioplasty implant and graft
CPT/HCPCS: 78452; 93017; A9500

== ENCOUNTER → 2025-01-04 08:16 | Outpatient (BNV) | payer MEDICARE, SELFPAY | PROVIDERS: PCP Nurse Practitioner Family | DX: I49.3 Ventricular premature depolarization (principal); R07.89 Other chest pain; R06.02 Shortness of breath | CPT/HCPCS: 78452; 93016; 93018 ==

== ENCOUNTER 2025-01-08 14:42 | Outpatient (REF) | payer MEDICARE, SELFPAY ==
--- NOTE | ~2025-01-08 | US_ITS ---
CLINICAL HISTORY: I65.22 - Occlusion and stenosis of left carotid artery US bilateral carotid duplex Comparison: US/SR - US CAROTID DOPPLER BILATERAL - 12/28/23 08:37 EDT Findings: Mild calcified plaques within bilateral carotid bulbs, no significant stenosis. Waveforms are normal morphology. Peak systolic velocities: Right CCA: 92.5 cm/s Right ICA: 96 cm/s ICA/CCA ratio: 0.8 Right ECA: Unremarkable Right vertebral and subclavian artery flow antegrade. Left CCA: 114 cm/s Left ICA: 102 cm/s ICA/CCA ratio: 0.55 Left ECA: Unremarkable Left vertebral and subclavian artery flow antegrade. Impression: Normal carotid velocities, no significant stenosis (0-49% stenosis) This document has been electronically signed by: Camille Alberto MD on 01/09/2025 14:09:41
== END 2025-01-08 14:43 | disposition home or self-care (01) ==
LOC: HO.US 14:42
PROVIDERS: PCP Nurse Practitioner Family; Visit Provider Internal Medicine Cardiovascular Disease
DX: I65.22 Occlusion and stenosis of left carotid artery (principal)
CPT/HCPCS: 93880

== ENCOUNTER → 2025-01-08 14:44 | Outpatient (BNV) | payer MEDICARE, SELFPAY | PROVIDERS: PCP Nurse Practitioner Family; Visit Provider Radiology Diagnostic Radiology | DX: I65.23 Occlusion and stenosis of bilateral carotid arteries (principal) | CPT/HCPCS: 93880 ==

== ENCOUNTER 2025-01-19 07:41 | Outpatient (REF) | payer MEDICARE, SELFPAY ==
--- OUTSIDE RECORDS SUMMARY | 2024-03-28 07:10 | XMS_ITS ---
Author Organization [facility] Address [address] [place] [address] Care Team Providers Care Mechanical Test Engineer Name Role Phone CHINA MITCHELL Primary Care Provider Hector Monson [phone] REASON FOR VISIT Patient presents today for a COLON SCREENING Encounters Encounter Location Date Provider Diagnosis [facility] [address] [place] [phone] 03/28/2024 Hector Leach Plan Of Treatment No Information Progress Notes * CHINA DOUGHERTYDOB:1960 ([age] yo M)Acc No.[id number]:03/28/2024 Progress Notes Patient: CHINA CHINCHILLA Provider: Gaurav Leach MD :1960 A ge:63 Y S ex:Male Date:03/28/2024 Address:[address] [place] [address] [id number] Pcp:CHINA MITCHELL Subjective: * Chief Complaints: * [...] MD Date: 1 05/29/2023 Generated for Martin soliman/Jon/eTransmitting on: 1 07:43 AM EDT
--- OUTSIDE RECORDS SUMMARY | 2024-07-14 10:40 | XMS_ITS ---
Author Organization [facility] Address [address] [place] [address] Care Team Providers Care Bail Agent Name Role Phone CHINA MITCHELL Primary Care Provider Hector Monson [phone] REASON FOR VISIT Patient presents today for a discuss colonoscopy Encounters Encounter Location Date Provider Diagnosis [facility] [address] [facility] [address] [place] [address] 07/14/2024 Hector Leach Plan Of Treatment No Information Progress Notes * CHINA DOUGHERTYDOB:1960 ([age] yo M)Acc No.[id number]:07/14/2024 Progress Notes Patient: CHINA CHINCHILLA Provider: Gaurav Leach MD :1960 A ge:63 Y S ex:Male Date:07/14/2024 Address:[address] [place] [address] [facility] Pcp:CHINA MITCHELL Subjective: * Chief Complaints: * 1 . Patient presents today for a discuss colonoscopy. * Medical History: Objective: * Vitals: Assessment: Plan: * Treatment: * * The named appointment provid er may or may not be the originator of this progress note, and it is not deemed complete until electronically signed by the appointment provider. Sign off status: Pending * Provider: Gaurav Leach MD Date: 0 07/14/2024 Generated for Martin soliman/Jon/eTransmitting on: 1 07:44 AM EDT
--- NOTE | ~2025-01-19 | CT_ITS ---
EXAMINATION: CT LOW-DOSE SCREENING CHEST WITHOUT CONTRAST CLINICAL INFORMATION: 64-year-old male, smoker, 47 pack years, lung cancer screening. COMPARISON: 12/23/2023. TECHNIQUE: Multidetector volumetric CT imaging of the chest is performed on a Siemens SOMATOM Definition scanner without contrast using low dose technique. Additional 2D coronal and sagittal reformatted images and axial 3D maximum intensity projection (MIP) images are generated on the CT workstation. This CT examination was performed using dose optimization techniques as appropriate, variously including the following: *Automated exposure control *Adjustment of mA and/or kV according to patient size (this includes techniques or standardized protocols for targeted exams where dose is matched to indication/reason for exam; i.e. extremities or head) *Use of iterative reconstruction technique FINDINGS: PULMONARY NODULES: There are no suspicious pulmonary nodules. LUNGS: Lungs are well expanded and clear bilaterally. No abnormal opacities, consolidations, or interstitial abnormalities. There is mild centrilobular emphysema. Small airways appear grossly normal. There is no effusion or pneumothorax. Central airways appear normal. MEDIASTINUM: Imaged thyroid is normal. There is no abnormal lymphadenopathy or mass. The aorta is nonaneurysmal, with moderate degree of atheromatous calcification. The main pulmonary artery is normal in size. The heart size is normal. There is no pericardial effusion. No esophageal abnormalities. CORONARY ARTERY CALCIFICATION: Heavy. CHEST WALL/AXILLA: There is no mass or abnormal lymph nodes. UPPER ABDOMEN: Imaged upper abdominal contents history heavy atheromatous calcification of the aorta and its branches. Imaged upper abdominal contents are otherwise normal. OSSEOUS STRUCTURES: There is no suspicious lytic or blastic bone lesion. CT/CT lung screening IMPRESSION: 1. There are no suspicious pulmonary nodules. 2. There is mild emphysema. There is no active lung disease. 3. Heavy atheromatous coronary calcifications. ASSESSMENT: 1. Lung-RADS Category 1: Negative. There are no nodules or there are definitely benign nodules. 2. Lung-RADS Category S: None. RECOMMENDATION: Continued routine annual low-dose CT lung screening in 1 year is recommended. An order for CT CHEST LOW DOSE CANCER SCREENING ([id number]) can be placed. Electronically signed by: Jayjay Rosenberg MD 01/19/2025 08:28 AM EDT
--- OUTSIDE RECORDS SUMMARY | 2025-01-19 07:43 | XMS_ITS | Clinical Summary ---
Author Organization [facility] Address [address] [place] [address] Care Team Providers Care Ethylene Oxide Panelboard Operator Name Role Phone None, Provider FERMENTOLOGIST Primary Care Provider Unavaila ble Social History [...] - 1-dose 75+ series) 11/27/2035 Care Teams Ethylene Oxide Panelboard Operator Relationship Specialty Start Date End Date None, Provider, FERMENTOLOGIST PCP - General 03/01/15
--- OUTSIDE RECORDS SUMMARY | 2025-01-19 07:43 | XMS_ITS | Clinical Summary ---
Author Organization [facility] Address [address] [place] [address] Care Team Providers Care Cost Estimating Engineer Name Role Phone Unavailable Primary Care Provider Unavailabl e Social History Tobacco Use Types Packs/Day Years Used Date Smoking Tobacco: Never Assessed Sex and Gender Information Value Date Recorded Sex Assigned at Not on file Legal Sex Male 7:57 PM EST Gender Identity Not on file Sexual Orientation Not on file Plan of Treatment Health Maintenance Due Date Last Done Comments Colorectal Cancer Screening: Colonoscopy 1960 DTaP,Tdap,and Td Vaccines (1 - Tdap) 11/27/1979 Pneumococcal Vaccine: 50+ Ye ars (1 of 1 - PCV) 2010 Zoster Vaccines (1 of 2) 2010 Cholesterol Screening (Lipid Panel) 11/16/2023 HIV Screening 11/16/2023 Hepatitis C Screening [...]
--- OUTSIDE RECORDS SUMMARY | 2025-01-19 07:44 | XMS_ITS | Patient Health Record ---
Author Organization [facility] Address [address] [place] [address] Care Team Providers Care Tool Machine Setup Operator Name Role Phone CHINA MITCHELL Primary Care Provider Hector Monson [phone] Allergies No Known Allergies Reason For Referral [...] Status Risk Notes Problem Colon cancer screening (133283988) Colon cancer screening (Z12.11) Active confirmed Problem Dysphagia (28844409) Dysphagia (R13.10) Active confirmed Problem Preprocedural examination (457459094042683 ) Preprocedural examination (Z01.818) Active confirmed Problem Long-term current use of aspirin (331006011296743 ) Aspirin long-term use (Z79.82) Active confirmed Problem Gastritis (1541237) Gastritis (K29.70) Active confirmed Problem 65284259 Pharyngoesophage al dysphagia (R13.14) Active confirmed Problem 78821212 Hyponatremia (E87.1) Active confirmed Vital Signs Temperature 96.8 degrees Fahrenheit 11/23/2024 Blood pressure diastolic 01 mm Hg 11/23/2024 Height 66.5 in 11/23/2024 Blood pressure systolic 001 mm Hg 11/23/2024 Weight 138.6 lbs 11/23/2024 BMI 22.03 kg/m2 11/23/2024 Procedures Procedure Date Ordered Date Performed Result Body Sit e COLONOSCOPY 11/23/2024 N/A Encounters Encounter Location Date Provider [facility] [address] [place] [address] 11/23/2024 Hector Leach Colon cancer screeni ng Z12.11 ; Aspirin long-term use Z79.82 and Preprocedural examination Z01.818 [facility] [address] [place] [address] 07/14/2024 Hector Leach [facility] [address] [place] [address] 12/27/2024 Hector Leach Assessments Encounter Date Diagnosis (ICD [...] GI ENDOSCOPY [place] [facility] OF [facility]OPH 12/22/2022 Insurance Providers Payer Name Payer Address Payer Phone Subscriber Number Group Number Insured Name Patient Relationship to Insured Coverage Start Date Coverage End Date MEDICARE OF [place] [address] [facility] [address] [phone] [id number] CHINA DOUGHERTY Self - patient is the insured [employer] ATT[employer] CLAIMS [address] [place] [address] [id number] CHINA DOUGHERTY Self - patient is the insured Medical (General) History Medical History History ICD Code Denies DM,CVA,Lung disease,renal disease Torn biceps but no surgery MD 2015 with 3 stents placed in 2016 [...]
== END 2025-01-19 07:42 | disposition home or self-care (01) ==
LOC: HO.CT 07:41
PROVIDERS: PCP Nurse Practitioner Family; Visit Provider Physician Assistant Medical
DX: Z12.2 Encounter for screening for malignant neoplasm of respiratory organs (principal); F17.210 Nicotine dependence, cigarettes, uncomplicated
CPT/HCPCS: 71271

== ENCOUNTER → 2025-01-19 07:44 | Outpatient (BNV) | payer MEDICARE, SELFPAY | PROVIDERS: PCP Nurse Practitioner Family; Visit Provider Radiology Diagnostic Radiology | DX: Z12.2 Encounter for screening for malignant neoplasm of respiratory organs (principal); Z87.891 Personal history of nicotine dependence | CPT/HCPCS: 71271 ==

== ENCOUNTER → 2025-03-12 06:32 | Day surgery (SDC) | payer MEDICARE, SELFPAY | LOC: HO.SSS 06:34 | PROVIDERS: PCP Nurse Practitioner Family; Visit Provider Internal Medicine | DX: Z12.11 Encounter for screening for malignant neoplasm of colon (principal); Z53.8 Procedure and treatment not carried out for other reasons ==

== ENCOUNTER 2025-03-22 13:00 | Outpatient (AMB) | payer MEDICARE, SELFPAY ==
[2025-03-22 13:02] VITALS: BP 124/66; PULSE 72; BMI 22.7
--- NOTE | 2025-03-22 13:02 | MHC.OFFVIS ---
Vital Signs 03/22/25 13:02 Height 5 ft 5 in Weight 136 lb 3.931 oz BMI 22.7 BP 124/66 Blood Pressure Location Lt brachial Position Sitting Pulse 72 Pulse Source Pulse Oximeter Intake Visit Reasons: 2 mth f/up carotid/ echo/ nuc NS Bulb Filler Required: No Accompanied by: Self / Same As Patient Allergies carvedilol Adverse Reaction (Severe, Verified 03/22/25 13:06) Unknown Medication List - Last Reconciled 03/22/25 by Gorge Wilkins NP amlodipine 10 mg PO DAILY apixaban (Eliquis) 5 mg PO BID atorvastatin 80 mg PO DAILY ezetimibe 10 mg PO DAILY hydrochlorothiazide 12.5 mg PO QAM lisinopril 20 mg PO DAILY ranolazine ER 500 mg PO BID trazodone 200 mg (2 x 100 mg) PO BEDTIME PRN 30 days HPI Comments Details: This is a 64-year-old male patient coming in for a follow-up visit. Patient with a history of hypertension, hyperlipidemia, coronary artery disease, STEMI and cardiac arrest with prior 3 JIE to LAD and 2 JIE to RCA, and current smoker. Patient at his last visit had reported chest discomfort and shortness of breath for which patient underwent a myocardial perfusion study, echocardiogram, and carotid duplex. Today, patient is reporting feeling well overall without any cardiac symptoms of chest pain, shortness of breath, palpitations, dizziness, orthopnea, PND, leg edema, presyncope or syncope. On the recent echocardiogram, small apical thrombus was noted and therefore patient was switched from aspirin to Eliquis therapy. No reported signs of bleeding. Patient is not taking his medications as prescribed as he is taking atorvastatin twice a day and Eliquis once a day. Unfortunately, patient also is a very heavy smoker smoking 2 packs a day and is working on cutting down. Patient states that he recently started ZYN 6 which he likes and is reporting is helping for his cigarette grieving. [facility] Medical History CAD (coronary artery disease) History of ST elevation myocardial infarction (STEMI) (~2017) History of cardiac arrest (~2017) Stented coronary artery (~2017) HTN (hypertension) Hyperlipidemia Impaired fasting glucose Nicotine dependence, cigarettes, uncomplicated History of colon polyps Anxiety Depression Insomnia Surgical History History of colonoscopy History of heart artery stent History of cardiac catheterization History of surgery Brain aneurysm History of vasectomy History of arthroscopy of left knee Family History Father Diverticulitis Acute CVA (cerebrovascular accident) Mother Breast cancer CVD (cardiovascular disease) Stroke Maternal Aunt Graves disease Brother Diverticulitis Heart attack Sister Melanoma Son No problems noted. 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 Cognitive needs: No Hearing needs: Yes Vision needs: Yes Review of Systems Const Denies daytime sleepiness, Denies difficulty sleeping, Denies snoring, Denies stops breathing during sleep and Denies weakness Card Denies chest pain, Denies rapid heart rate, Denies irregular heart rhythm, Denies claudication, Denies leg edema, Denies lightheadedness, Denies palpitations, Reports dyspnea, Denies dyspnea on exertion, Denies orthopnea, Denies paroxysmal nocturnal dyspnea and Denies slow heart rate Resp Denies cough, Reports dyspnea, Denies dyspnea on exertion and Denies snoring GI Reports no additional complaints, Denies hematochezia, Denies change in stool character and Denies dyspepsia Musc Denies abnormal gait, Denies muscle weakness and Denies numbness Neuro Denies abnormal gait, Denies numbness and Denies weakness Endo Denies palpitations Physical Exam Vital Signs: Last Vital Signs Pulse 72 03/22/25 13:02 BP 124/66 03/22/25 13:02 BMI result Body Mass Index 22.7 Const General: cooperative, healthy appearing, comfortable and no acute distress Orientation/consciousness: patient oriented x3 HEENT Head: Yes normal to inspection Neck Neck: Yes normal visual inspection, Yes trachea midline and Yes supple Chest Chest palpation & inspection: normal inspection of the chest Resp Effort & Inspection: normal respiratory effort Auscultation: clear to auscultation bilaterally, no crackles, no rales, no rhonchi and no wheezes Cardio Jugular venous distension: no JVD Palpation: normal PMI Rate: regular rate Rhythm: regular rhythm Heart sounds: S1 normal heart sound present, S2 normal heart sound present, no click, no gallops, no murmurs and no rubs Peripheral pulses: Peripheral pulses 2+ throughout GI Inspection: Yes normal to inspection Palpation (GI): Soft to palpation Auscultation: normal bowel sounds Skin General skin exam: no rashes or lesions noted Neuro General: patient oriented x3 Extrem General: Yes normal to inspection, No no pedal edema and No calf tenderness Psych Appearance: grossly normal Mental Status: mental status grossly normal Speech and movement: Normal speech and movement present Assessment & Plan Assessment & Plan (1) CAD (coronary artery disease): Code(s): I25.10 - Atherosclerotic heart disease of [place] coronary artery without angina pectoris Category: Medical Qualifiers: Coronary Disease-Associated Artery/Lesion type: [place] artery [place] vs. transplanted heart: [place] heart Associated angina: without angina Qualified Code(s): I25.10 - Atherosclerotic heart disease of [place] coronary artery without angina pectoris Plan: History of coronary artery disease, STEMI with cardiac arrest and status post prior 3 JIE to LAD and recurrent discomfort with 2 JIE to RCA. For reports of chest discomfort, patient underwent a myocardial perfusion study on 01/04/2025 that showed prior infarct at the apex, apical part of the inferolateral wall, and basal inferoseptum. No ischemia. Patient also underwent an echocardiogram on 12/22/2024 that showed reduced LV systolic function with an EF between 45-50%, akinetic apex, apical inferior, apical septal, and mid anteroseptal segments, and a small apical thrombus. Given the finding of apical thrombus, patient was switched from aspirin to Eliquis therapy. Patient has been taking this once daily instead of twice daily. The importance of taking Eliquis twice daily was emphasized and he was provided with the medication list. Continue statin and Zetia therapy. No recent lipid profile and therefore we will update this. Continue hydrochlorothiazide, Ranexa, and lisinopril as prescribed. We will add Jardiance for cardiac protection. We will check his kidney function in 1 month. Discussed signs and symptoms to watch for with heart failure. Advised on low-salt diet, daily weight monitoring, and compression socks as needed. Clinically euvolemic and therefore we will hold off on additional diuretics. (2) Stented coronary artery: Onset Date: ~2016 Comment: (3 JIE to the LAD - 06/2016; 2 JIE to the RCA - 04/2018) Code(s): Z95.5 - Presence of coronary angioplasty implant and graft Category: Medical Plan: As above. (3) HTN (hypertension): Code(s): I10 - Essential (primary) hypertension Category: Medical Qualifiers: Hypertension type: essential hypertension Qualified Code(s): I10 - Essential (primary) hypertension Plan: Blood pressure is well-controlled. Continue current regimen with a blood pressure goal less than 130/80. Advised strongly on low-salt diet. (4) Hyperlipidemia: Code(s): E78.5 - Hyperlipidemia, unspecified Category: Medical Qualifiers: Hyperlipidemia type: pure hypercholesterolemia Qualified Code(s): E78.00 - Pure hypercholesterolemia, unspecified Plan: As above. Advised on heart healthy diet, regular exercise, med compliance, and aggressive management of vascular risk factors. Follow up in 6 months. In the interim, patient will call the office with any concerns or change in symptoms. This note was generated using voice recognition software. While every effort has been made to ensure accuracy and proper motorized squad commanding officer, there may be occasional errors that could affect the content or meaning of the described symptoms. Orders: Orders Lipid Panel 1 Month I25.10 - Atherosclerotic heart disease of [place] coronary artery without angina pectoris Basic Metabolic Panel 1 Month I10 - Essential (primary) hypertension Medications: New empagliflozin (Jardiance) 10 mg PO DAILY 90 tabs 1RF Coding Level of Care Code Est Pt Level 4 (10869) Complex visit Add On G2211 Diagnoses Coronary artery disease involving [place] coronary artery of [place] heart without angina pectoris I25.10 Coronary Disease-Associated Artery/Lesion type: [place] artery [place] vs. transplanted heart: [place] heart Associated angina: without angina Stented coronary artery Z95.5 Essential hypertension I10 Hypertension type: essential hypertension Pure hypercholesterolemia E78.00 Hyperlipidemia type: pure hypercholesterolemia Time Spent (min) 34 Comment Time spent in reviewing the chart, test results, assessment, counseling and documentation.
== END 2025-03-22 13:45 | disposition home or self-care (01) ==
LOC: HO.HCS 13:01
PROVIDERS: PCP Nurse Practitioner Family
DX: I25.10 Atherosclerotic heart disease of native coronary artery without angina pectoris (principal); Z95.5 Presence of coronary angioplasty implant and graft; I10 Essential (primary) hypertension; E78.00 Pure hypercholesterolemia, unspecified
CPT/HCPCS: 99214; G2211

== ENCOUNTER → 2025-03-22 13:00 | Outpatient (BNVA) | payer MEDICARE, SELFPAY | PROVIDERS: PCP Nurse Practitioner Family | DX: I25.10 Atherosclerotic heart disease of native coronary artery without angina pectoris (principal); I10 Essential (primary) hypertension; E78.00 Pure hypercholesterolemia, unspecified; Z95.5 Presence of coronary angioplasty implant and graft | CPT/HCPCS: 99212 ==